=== PATIENT | male | born 1950 | race Caucasian/White ===

== ENCOUNTER 2017-01-02 11:41 | Inpatient (IN) | payer MEDICARE, MEDICAID ==
[~2017-01-02] VITALS: Ht 177.8 cm; Wt 64.9 kg
[2017-01-02 12:10] LABS: BASOPHILS # (AUTO) 0.1 /CMM (0.0-0.2); BASOPHILS % (AUTO) 0.5 % (0.0-2.0); DIFF TOTAL % 100 %; EOSINOPHILS # (AUTO) 0.4 /CMM (0.0-0.7); EOSINOPHILS % (AUTO) 3.5 % (0.0-6.0); HEMATOCRIT 34 % (39-51); HEMOGLOBIN 11.2 g/dL (13.5-17.5); LYMPHOCYTES # (AUTO) 1.9 /CMM (0.8-4.8); LYMPHOCYTES % (AUTO) 14.8 % (20.0-44.0); MEAN CORPUSCULAR HEMOGLOBIN 31 PG (26.0-33.0); MEAN CORPUSCULAR HGB CONC 33 g/dl (31.0-36.0); MEAN CORPUSCULAR VOLUME 93 fL (80-96); MONOCYTES # (AUTO) 1.1 /CMM (0.1-1.30); MONOCYTES % (AUTO) 8.9 % (2.0-12.0); NEUTROPHILS # (AUTO) 9.1 /CMM (1.8-8.9); NEUTROPHILS % (AUTO) 72.3 % (43.0-81.0); PLATELET COUNT (AUTO) 432 /CMM (150-450); RED BLOOD CELL COUNT(AUTO) 3.66 MIL/uL (4.5-6.0); WHITE BLOOD COUNT (AUTO) 12.6 K/uL (4.3-11.0)
[2017-01-02] MEDS ORDERED: CRAN425C GT (12:24)
[2017-01-02] MEDS ORDERED: ACET-868 GT (12:24)
[2017-01-02] MEDS ORDERED: ASPI81TA2 GT (12:24)
[2017-01-02] MEDS ORDERED: MULT9LIQ GT (12:24)
[2017-01-02] MEDS ORDERED: MAGN250T37 GT (12:24)
[2017-01-02] MEDS ORDERED: PANT40TA2 GT (12:24)
[2017-01-02] MEDS ORDERED: MINE3.5O EACHEYE (12:24)
[2017-01-02] MEDS ORDERED: AMIN30LI2 GT (12:24)
[2017-01-02] MEDS ORDERED: ZINC220T GT (12:24)
[2017-01-02] MEDS ORDERED: CLOP75TA2 GT (12:24)
[2017-01-02] MEDS ORDERED: DORZ10DR13 EACHEYE (12:24)
[2017-01-02] MEDS ORDERED: METF500T4 GT (12:24)
[2017-01-02] MEDS ORDERED: LEVE500T9 GT (12:24)
[2017-01-02] MEDS ORDERED: NUT.237L30 GT (12:24)
[2017-01-02] MEDS ORDERED: AMLO5TAB2 GT (12:24)
[2017-01-02] MEDS ORDERED: FERR220S2 GT (12:24)
[2017-01-02] MEDS ORDERED: MAGN400O6 GT (12:24)
[2017-01-02] MEDS ORDERED: CARV6.252 GT (12:24)
[2017-01-02] MEDS ORDERED: VALS80TA26 PO (12:24)
[2017-01-02] MEDS ORDERED: ASCO-340 GT (12:24)
[2017-01-02] MEDS ORDERED: POLY15DR57 EACHEYE (12:24)
[2017-01-02] MEDS ORDERED: CRAN3875 GT (12:24)
[2017-01-02] MEDS ORDERED: TAMS-12 GT (12:24)
[2017-01-02] MEDS ORDERED: BIMA2.5D5 EACHEYE (12:24)
[2017-01-02] MEDS ORDERED: SIMV10TA2 GT (12:24)
[2017-01-02] MEDS ORDERED: PHEN100O4 GT (12:24)
[2017-01-02] MEDS ORDERED: GABA-532 GT (12:24)
[2017-01-02 12:26] LABS: INR 0.93 (0.87-1.13); PROTHROMBIN TIME 9.8 SECS (9.5-12.7)
[2017-01-02 12:30] LABS: TROPONIN I 0.181 ng/mL (0.00-0.056)
[2017-01-02 12:40] LABS: ANION GAP 10 (5-14); CALCIUM, SERUM 9.8 mg/dL (8.5-10.1); CARBON DIOXIDE 30 mmol/L (21-32); CHLORIDE 97 mmol/L (98-107); CREATININE 0.6 mg/dL (0.6-1.3); GFR 134 mL/min (>60); GLUCOSE 277 mg/dL (74-106); POTASSIUM 4.8 mmol/L (3.5-5.1); SODIUM SERUM 132 mmol/L (136-145); UREA NITROGEN, BLOOD 26 mg/dL (7-18)
[2017-01-02 12:44] LABS: ALANINE AMINOTRANSFERASE 18 U/L (12-78); ALBUMIN 2.1 g/dL (3.4-5.0); ASPARTATE AMINOTRANSFERASE 15 U/L (15-37); BILIRUBIN,DIRECT 0.1 mg/dL (0.0-0.2); BILIRUBIN,TOTAL 0.2 mg/dL (0.2-1.0); INDIRECT BILIRUBIN 0.1 mg/dL (0.0-1.1); TOTAL PROTEIN, SERUM 7.2 g/dL (6.4-8.2)
[2017-01-02 12:47] LABS: LACTIC ACID 2.7 mmol/L (0.4-2.0)
[2017-01-02] MEDS ORDERED: IV NS 0.9% 2,000 ML ONE (12:53)
[2017-01-02] MEDS ORDERED: IV NS 0.9% 250 ML IV ONE (12:53)
[2017-01-02] MEDS ORDERED: IV SET PRIMARY PUMP SET 1 EA INFUS.SET MC ONE ×2 (12:53→16:44)
[2017-01-02] MEDS ORDERED: IV SET PRIMARY 1 EA INFUS.SET MC ONE (12:53)
[2017-01-02] MEDS ORDERED: IV NS 0.9% 1,000 ML BAG IV ONE (13:00)
[2017-01-02] MEDS ORDERED: VANCOMYCIN 1 GM in IV D5W 250 ML IV ONE (13:00)
[2017-01-02] MEDS ORDERED: PIPERACILLIN /TAZOBACTAM 3.375 G in IV D5W 50 ML IV ONE (13:00)
[2017-01-02] MEDS ORDERED: GENTAMICIN 80 MG in IV D5W 50 ML IV ONE (13:00)
[2017-01-02 13:06] LABS: *LACTIC ACID REFLEX FLAG YES
[2017-01-02] MEDS ORDERED: INSU100I4 SQ (13:58)
[2017-01-02 15:19] VITALS: BP 118/69
[2017-01-02] MEDS ORDERED: FEE PK DOSING 1 MIN EA MC ONE (15:55)
[2017-01-02 16:00] VITALS: BP 123/76
[2017-01-02] MEDS ORDERED: DEXTROSE 50%-WATER 50 ML DISP.SYRIN IV PRN (16:00)
[2017-01-02] MEDS ORDERED: ONDANSETRON HCL/PF 4 MG/2 ML VIAL IV PRN (16:00)
[2017-01-02] MEDS ORDERED: MAGNESIUM HYDROXIDE 30 ML UDC GT PRN (16:00)
[2017-01-02] MEDS ORDERED: ACETAMINOPHEN 650 MG/20.3 ML UDC GT PRN (16:30)
[2017-01-02] MEDS: VALSARTAN 80 MG TABLET PO SCH (16:33)
[2017-01-02] MEDS: FERROUS SULFATE UDC 300 MG/5 ML UDC GT SCH (16:33)
[2017-01-02] MEDS: CLOPIDOGREL BISULFATE 75 MG TABLET GT SCH (16:34)
[2017-01-02] MEDS: CARVEDILOL 6.25 MG TABLET GT SCH (16:34)
[2017-01-02] MEDS: AMLODIPINE BESYLATE 5 MG TABLET GT SCH (16:35)
[2017-01-02] MEDS: GABAPENTIN 100 MG CAPSULE GT SCH (16:35)
[2017-01-02] MEDS: METFORMIN 500 MG TABLET GT SCH (16:35)
[2017-01-02] MEDS: ASPIRIN 81 MG TAB.CHEW GT SCH (16:35)
[2017-01-02] MEDS: ENOXAPARIN SODIUM 40 MG/0.4 ML DISP.SYRIN SQ SCH (16:38)
[2017-01-02] MEDS: LANOLIN/MIN OIL/PETROLAT,WHT 3.5 GM TUBE EACHEYE SCH (17:16)
[2017-01-02] MEDS: POLYVINYL ALCOHOL 15 ML BOTTLE EACHEYE SCH ×2 (17:17→21:15)
[2017-01-02] MEDS ORDERED: SECONDARY IV SET 1 EA INFUS.SET MC ONE (17:18)
[2017-01-02] MEDS: TIMOLOL MAL/DORZOLAM HCL OPHTH 10 ML BOTTLE EACHEYE SCH (17:18)
[2017-01-02] MEDS: PHENYTOIN SUSP UDC 100 MG/4 ML UDC GT SCH (17:20)
[2017-01-02] MEDS: IV NS 0.9% 1,000 ML IV PRN (17:22)
[2017-01-02] MEDS: PIPERACILLIN /TAZOBACTAM 3.375 G in IV D5W 50 ML IV SCH (17:22)
[2017-01-02] MEDS: GLYTROL 1,000 ML BAG GT SCH (17:34)
[2017-01-02] MEDS: INSULIN REGULAR, HUMAN 100 UNIT/ML 3 ML VIAL SQ PRN (17:53)
[2017-01-02] MEDS: BLOOD SUGAR DIAGNOSTIC 1 EACH STRIP IN SCH (17:54)
[2017-01-02] MEDS: TAMSULOSIN 0.4 MG CAP.SR.24H GT SCH (21:15)
[2017-01-02] MEDS: LATANOPROST EYE DROP 0.005% 2.5 ML BOTTLE OP SCH (21:15)
[2017-01-02] MEDS: LEVETIRACETAM SOL (5 ML) 100 MG/ML UDC GT SCH (21:16)
[2017-01-02] MEDS: SIMVASTATIN 10 MG TABLET GT SCH (21:16)
[2017-01-02 22:38] VITALS: BP 147/79
[2017-01-03] MEDS: BLOOD SUGAR DIAGNOSTIC 1 EACH STRIP IN SCH ×4 (00:11→17:08)
[2017-01-03] MEDS: PIPERACILLIN /TAZOBACTAM 3.375 G in IV D5W 50 ML IV SCH ×4 (00:11→18:27)
[2017-01-03] MEDS: INSULIN REGULAR, HUMAN 100 UNIT/ML 3 ML VIAL SQ PRN ×4 (00:12→17:15)
[2017-01-03] MEDS ORDERED: SECONDARY IV SET 1 EA INFUS.SET MC ONE ×2 (01:53→16:01)
[2017-01-03] MEDS: VANCOMYCIN 1 GM in IV D5W 250 ML IV SCH ×2 (01:55→12:55)
[2017-01-03 04:00] VITALS: BP_SYST 121; BP_SYST 147; BP_DIAS 75; BP_DIAS 79
[2017-01-03 06:46] LABS: BASOPHILS % (AUTO) 0.4 % (0.0-2.0); DIFF TOTAL % 100 %; EOSINOPHILS # (AUTO) 0.4 /CMM (0.0-0.7); EOSINOPHILS % (AUTO) 4.1 % (0.0-6.0); HEMATOCRIT 29 % (39-51); HEMOGLOBIN 9.3 g/dL (13.5-17.5); LYMPHOCYTES # (AUTO) 1.2 /CMM (0.8-4.8); LYMPHOCYTES % (AUTO) 10.7 % (20.0-44.0); MEAN CORPUSCULAR HEMOGLOBIN 31 PG (26.0-33.0); MEAN CORPUSCULAR HGB CONC 33 g/dl (31.0-36.0); MEAN CORPUSCULAR VOLUME 93 fL (80-96); MONOCYTES % (AUTO) 9.4 % (2.0-12.0); NEUTROPHILS # (AUTO) 8.4 /CMM (1.8-8.9); NEUTROPHILS % (AUTO) 75.4 % (43.0-81.0); PLATELET COUNT (AUTO) 376 /CMM (150-450); RED BLOOD CELL COUNT(AUTO) 3.06 MIL/uL (4.5-6.0); WHITE BLOOD COUNT (AUTO) 11.1 K/uL (4.3-11.0)
[2017-01-03 06:57] LABS: CALCIUM, SERUM 8.6 mg/dL (8.5-10.1); CREATININE 0.6 mg/dL (0.6-1.3); PHOSPHORUS 2.4 mg/dL (2.5-4.9); POTASSIUM 4.5 mmol/L (3.5-5.1)
[2017-01-03 08:00] VITALS: BP 133/76
[2017-01-03] MEDS: MULTIVIT, IRON, MIN NO. 8, FA 1 TAB TABLET GT SCH (09:08)
[2017-01-03] MEDS: METFORMIN 500 MG TABLET GT SCH ×2 (09:10→16:25)
[2017-01-03] MEDS: GABAPENTIN 100 MG CAPSULE GT SCH ×2 (09:11→16:26)
[2017-01-03] MEDS: AMLODIPINE BESYLATE 5 MG TABLET GT SCH (09:11)
[2017-01-03] MEDS: ASPIRIN 81 MG TAB.CHEW GT SCH (09:12)
[2017-01-03] MEDS: CARVEDILOL 6.25 MG TABLET GT SCH ×2 (09:12→16:25)
[2017-01-03] MEDS: VALSARTAN 80 MG TABLET PO SCH (09:12)
[2017-01-03] MEDS: FERROUS SULFATE UDC 300 MG/5 ML UDC GT SCH (09:13)
[2017-01-03] MEDS: MAGNESIUM OXIDE 400 MG TABLET GT SCH (09:13)
[2017-01-03] MEDS: ZINC SULFATE 220 MG CAPSULE GT SCH (09:13)
[2017-01-03] MEDS: ASCORBIC ACID 500 MG TABLET GT SCH (09:13)
[2017-01-03] MEDS: PHENYTOIN SUSP UDC 100 MG/4 ML UDC GT SCH ×2 (09:14→16:25)
[2017-01-03] MEDS: LEVETIRACETAM SOL (5 ML) 100 MG/ML UDC GT SCH ×2 (09:14→21:33)
[2017-01-03] MEDS: PANTOPRAZOLE 40 MG TABLET.DR PO SCH (09:14)
[2017-01-03] MEDS: TIMOLOL MAL/DORZOLAM HCL OPHTH 10 ML BOTTLE EACHEYE SCH ×2 (09:15→16:27)
[2017-01-03] MEDS: POLYVINYL ALCOHOL 15 ML BOTTLE EACHEYE SCH ×4 (09:16→21:33)
[2017-01-03] MEDS: LANOLIN/MIN OIL/PETROLAT,WHT 3.5 GM TUBE EACHEYE SCH ×2 (09:16→16:28)
[2017-01-03] MEDS: CLOPIDOGREL BISULFATE 75 MG TABLET GT SCH (09:17)
[2017-01-03 09:40] VITALS: BP 147/81
[2017-01-03] MEDS: IV NS 0.9% 1,000 ML IV PRN (11:26)
[2017-01-03] MEDS ORDERED: NEUTRA PHOS 1 POWD.PACKET GT ONE (13:30)
[2017-01-03 16:00] VITALS: BP 124/73
[2017-01-03] MEDS: Magnesium 1GM/D5W 100ML PREMIX 1 G in PREMIX 1 EA IV SCH ×4 (16:21→21:33)
[2017-01-03 18:00] VITALS: BP 124/73
[2017-01-03 20:00] VITALS: BP 134/72
[2017-01-03] MEDS: TAMSULOSIN 0.4 MG CAP.SR.24H GT SCH (21:33)
[2017-01-03] MEDS: SIMVASTATIN 10 MG TABLET GT SCH (21:33)
[2017-01-04] MEDS: LATANOPROST EYE DROP 0.005% 2.5 ML BOTTLE OP SCH ×2 (00:07→23:49)
[2017-01-04] MEDS: ENOXAPARIN SODIUM 40 MG/0.4 ML DISP.SYRIN SQ SCH ×2 (00:07→21:00)
[2017-01-04] MEDS: PIPERACILLIN /TAZOBACTAM 3.375 G in IV D5W 50 ML IV SCH ×4 (00:08→17:51)
[2017-01-04] MEDS: INSULIN REGULAR, HUMAN 100 UNIT/ML 3 ML VIAL SQ PRN ×4 (00:21→18:02)
[2017-01-04] MEDS: BLOOD SUGAR DIAGNOSTIC 1 EACH STRIP IN SCH ×4 (00:24→17:50)
[2017-01-04] MEDS: VANCOMYCIN 1 GM in IV D5W 250 ML IV SCH ×2 (01:30→12:53)
[2017-01-04] MEDS: GLYTROL 1,000 ML BAG GT SCH (03:31)
[2017-01-04 06:37] LABS: CALCIUM, SERUM 8.8 mg/dL (8.5-10.1); CREATININE 0.6 mg/dL (0.6-1.3); PHOSPHORUS 2.7 mg/dL (2.5-4.9); POTASSIUM 4.3 mmol/L (3.5-5.1)
[2017-01-04 08:00] VITALS: BP 132/80
[2017-01-04] MEDS: PANTOPRAZOLE 40 MG TABLET.DR PO SCH (08:36)
[2017-01-04] MEDS: PHENYTOIN SUSP UDC 100 MG/4 ML UDC GT SCH ×2 (08:36→17:49)
[2017-01-04] MEDS: LEVETIRACETAM SOL (5 ML) 100 MG/ML UDC GT SCH ×2 (08:36→23:31)
[2017-01-04] MEDS: GABAPENTIN 100 MG CAPSULE GT SCH ×2 (08:37→17:50)
[2017-01-04] MEDS: FERROUS SULFATE UDC 300 MG/5 ML UDC GT SCH (08:37)
[2017-01-04] MEDS: ZINC SULFATE 220 MG CAPSULE GT SCH (08:37)
[2017-01-04] MEDS: ASPIRIN 81 MG TAB.CHEW GT SCH (08:37)
[2017-01-04] MEDS: CLOPIDOGREL BISULFATE 75 MG TABLET GT SCH (08:37)
[2017-01-04] MEDS: MULTIVIT, IRON, MIN NO. 8, FA 1 TAB TABLET GT SCH (08:38)
[2017-01-04] MEDS: AMLODIPINE BESYLATE 5 MG TABLET GT SCH (08:38)
[2017-01-04] MEDS: ASCORBIC ACID 500 MG TABLET GT SCH (08:38)
[2017-01-04] MEDS: VALSARTAN 80 MG TABLET PO SCH (08:38)
[2017-01-04] MEDS: MAGNESIUM OXIDE 400 MG TABLET GT SCH (08:39)
[2017-01-04] MEDS: METFORMIN 500 MG TABLET GT SCH ×2 (08:39→17:50)
[2017-01-04] MEDS: CARVEDILOL 6.25 MG TABLET GT SCH ×2 (08:39→17:50)
[2017-01-04] MEDS: TIMOLOL MAL/DORZOLAM HCL OPHTH 10 ML BOTTLE EACHEYE SCH ×2 (08:43→17:49)
[2017-01-04] MEDS: POLYVINYL ALCOHOL 15 ML BOTTLE EACHEYE SCH ×4 (08:43→23:49)
[2017-01-04] MEDS: LANOLIN/MIN OIL/PETROLAT,WHT 3.5 GM TUBE EACHEYE SCH ×2 (08:44→18:03)
[2017-01-04 16:00] VITALS: BP 121/69
[2017-01-04] MEDS: DAKINS QUARTER STRENGTH (0.125%) 480 ML BOTTLE TOP SCH (18:00)
[2017-01-04 20:00] VITALS: BP 120/68
[2017-01-04] MEDS: GLYTROL 1,000 ML BAG GT PRN (20:12)
[2017-01-04] MEDS: TAMSULOSIN 0.4 MG CAP.SR.24H GT SCH (23:31)
[2017-01-04] MEDS: SIMVASTATIN 10 MG TABLET GT SCH (23:31)
[2017-01-05] MEDS: BLOOD SUGAR DIAGNOSTIC 1 EACH STRIP IN SCH ×5 (00:02→21:54)
[2017-01-05] MEDS: INSULIN REGULAR, HUMAN 100 UNIT/ML 3 ML VIAL SQ PRN ×5 (00:04→21:58)
[2017-01-05] MEDS: PIPERACILLIN /TAZOBACTAM 3.375 G in IV D5W 50 ML IV SCH ×4 (00:05→17:09)
[2017-01-05 00:08] LABS: BASOPHILS # (AUTO) 0.1 /CMM (0.0-0.2); BASOPHILS % (AUTO) 0.4 % (0.0-2.0); DIFF TOTAL % 100 %; EOSINOPHILS # (AUTO) 0.4 /CMM (0.0-0.7); EOSINOPHILS % (AUTO) 3.1 % (0.0-6.0); HEMATOCRIT 29 % (39-51); HEMOGLOBIN 9.6 g/dL (13.5-17.5); LYMPHOCYTES # (AUTO) 1.5 /CMM (0.8-4.8); LYMPHOCYTES % (AUTO) 11.6 % (20.0-44.0); MEAN CORPUSCULAR HEMOGLOBIN 30 PG (26.0-33.0); MEAN CORPUSCULAR HGB CONC 33 g/dl (31.0-36.0); MEAN CORPUSCULAR VOLUME 93 fL (80-96); NEUTROPHILS # (AUTO) 10.1 /CMM (1.8-8.9); NEUTROPHILS % (AUTO) 76.9 % (43.0-81.0); PLATELET COUNT (AUTO) 435 /CMM (150-450); RED BLOOD CELL COUNT(AUTO) 3.16 MIL/uL (4.5-6.0); WHITE BLOOD COUNT (AUTO) 13.1 K/uL (4.3-11.0)
[2017-01-05] MEDS: VANCOMYCIN 1 GM in IV D5W 250 ML IV SCH ×2 (01:13→12:06)
[2017-01-05 06:24] LABS: BASOPHILS % (AUTO) 0.2 % (0.0-2.0); DIFF TOTAL % 100 %; EOSINOPHILS # (AUTO) 0.3 /CMM (0.0-0.7); EOSINOPHILS % (AUTO) 2.4 % (0.0-6.0); HEMATOCRIT 25 % (39-51); HEMOGLOBIN 8.3 g/dL (13.5-17.5); LYMPHOCYTES # (AUTO) 1.8 /CMM (0.8-4.8); LYMPHOCYTES % (AUTO) 12.9 % (20.0-44.0); MEAN CORPUSCULAR HEMOGLOBIN 31 PG (26.0-33.0); MEAN CORPUSCULAR HGB CONC 33 g/dl (31.0-36.0); MEAN CORPUSCULAR VOLUME 92 fL (80-96); MONOCYTES # (AUTO) 1.2 /CMM (0.1-1.30); MONOCYTES % (AUTO) 8.3 % (2.0-12.0); NEUTROPHILS # (AUTO) 10.8 /CMM (1.8-8.9); NEUTROPHILS % (AUTO) 76.2 % (43.0-81.0); PLATELET COUNT (AUTO) 455 /CMM (150-450); RED BLOOD CELL COUNT(AUTO) 2.71 MIL/uL (4.5-6.0); WHITE BLOOD COUNT (AUTO) 14.2 K/uL (4.3-11.0)
[2017-01-05 06:47] LABS: CALCIUM, SERUM 8.9 mg/dL (8.5-10.1); CREATININE 0.6 mg/dL (0.6-1.3); POTASSIUM 4.7 mmol/L (3.5-5.1)
[2017-01-05 06:48] LABS: PHOSPHORUS 2.5 mg/dL (2.5-4.9)
[2017-01-05 08:00] VITALS: BP 110/75
[2017-01-05] MEDS ORDERED: Z GUARD REMEDY 2 OZ OINT TP PRN (08:30)
[2017-01-05] MEDS: TIMOLOL MAL/DORZOLAM HCL OPHTH 10 ML BOTTLE EACHEYE SCH ×2 (08:49→16:52)
[2017-01-05] MEDS: POLYVINYL ALCOHOL 15 ML BOTTLE EACHEYE SCH ×4 (08:50→21:49)
[2017-01-05] MEDS: MAGNESIUM OXIDE 400 MG TABLET GT SCH (08:51)
[2017-01-05] MEDS: FERROUS SULFATE UDC 300 MG/5 ML UDC GT SCH (08:51)
[2017-01-05] MEDS: LEVETIRACETAM SOL (5 ML) 100 MG/ML UDC GT SCH ×2 (08:51→21:49)
[2017-01-05] MEDS: ZINC SULFATE 220 MG CAPSULE GT SCH (08:51)
[2017-01-05] MEDS: PHENYTOIN SUSP UDC 100 MG/4 ML UDC GT SCH ×2 (08:51→16:50)
[2017-01-05] MEDS: CARVEDILOL 6.25 MG TABLET GT SCH ×2 (08:51→16:51)
[2017-01-05] MEDS: PANTOPRAZOLE 40 MG TABLET.DR PO SCH (08:51)
[2017-01-05] MEDS: GABAPENTIN 100 MG CAPSULE GT SCH ×2 (08:51→16:50)
[2017-01-05] MEDS: ASPIRIN 81 MG TAB.CHEW GT SCH (08:52)
[2017-01-05] MEDS: CLOPIDOGREL BISULFATE 75 MG TABLET GT SCH (08:52)
[2017-01-05] MEDS: AMLODIPINE BESYLATE 5 MG TABLET GT SCH (08:52)
[2017-01-05] MEDS: ASCORBIC ACID 500 MG TABLET GT SCH (08:52)
[2017-01-05] MEDS: MULTIVIT, IRON, MIN NO. 8, FA 1 TAB TABLET GT SCH (08:52)
[2017-01-05] MEDS: METFORMIN 500 MG TABLET GT SCH ×2 (08:52→16:51)
[2017-01-05] MEDS: LANOLIN/MIN OIL/PETROLAT,WHT 3.5 GM TUBE EACHEYE SCH ×2 (08:53→16:50)
[2017-01-05] MEDS: VALSARTAN 80 MG TABLET PO SCH (08:55)
[2017-01-05] MEDS: DAKINS QUARTER STRENGTH (0.125%) 480 ML BOTTLE TOP SCH (08:56)
[2017-01-05] MEDS: Z GUARD REMEDY 2 OZ OINT TP SCH (08:56)
[2017-01-05] MEDS ORDERED: SECONDARY IV SET 1 EA INFUS.SET MC ONE (11:51)
[2017-01-05] MEDS: Magnesium 1GM/D5W 100ML PREMIX 100 ML IV SCH ×4 (12:05→15:13)
[2017-01-05] MEDS: GLYTROL 1,000 ML BAG GT PRN (12:05)
[2017-01-05 16:00] VITALS: BP 132/65
[2017-01-05 20:00] VITALS: BP 119/66
[2017-01-05 20:31] VITALS: BP 119/66
[2017-01-05 21:08] LABS: KETONES,URINE NEGATIVE (NEGATIVE); LEUKOCYTE ESTERASE ,URINE 3+ (NEGATIVE)
[2017-01-05 21:09] LABS: ADD UA MICROSCOPIC YES
[2017-01-05 21:37] LABS: ADD URINE CULTURE YES; WBC,URINE 21-50 /HPF (0-3)
[2017-01-05] MEDS: LATANOPROST EYE DROP 0.005% 2.5 ML BOTTLE OP SCH (21:48)
[2017-01-05] MEDS: SIMVASTATIN 10 MG TABLET GT SCH (21:49)
[2017-01-05] MEDS: TAMSULOSIN 0.4 MG CAP.SR.24H GT SCH (21:49)
[2017-01-05] MEDS: ENOXAPARIN SODIUM 40 MG/0.4 ML DISP.SYRIN SQ SCH (22:00)
[2017-01-06] VITALS (8 sets, daily range): BP systolic 100–129; BP diastolic 54–70
[2017-01-06] MEDS: PIPERACILLIN /TAZOBACTAM 3.375 G in IV D5W 50 ML IV SCH ×5 (00:15→19:52)
[2017-01-06] MEDS: GLYTROL 1,000 ML BAG GT PRN ×3 (00:16→22:10)
[2017-01-06] MEDS: VANCOMYCIN 1 GM in IV D5W 250 ML IV SCH ×3 (01:11→13:16)
[2017-01-06] MEDS: BLOOD SUGAR DIAGNOSTIC 1 EACH STRIP IN SCH ×3 (05:17→17:39)
[2017-01-06] MEDS: INSULIN REGULAR, HUMAN 100 UNIT/ML 3 ML VIAL SQ PRN ×3 (05:23→17:46)
[2017-01-06 06:44] LABS: BASOPHILS % (AUTO) 0.3 % (0.0-2.0); DIFF TOTAL % 100 %; EOSINOPHILS # (AUTO) 0.4 /CMM (0.0-0.7); EOSINOPHILS % (AUTO) 2.6 % (0.0-6.0); HEMATOCRIT 21 % (39-51); HEMOGLOBIN 7.1 g/dL (13.5-17.5); LYMPHOCYTES # (AUTO) 1.8 /CMM (0.8-4.8); LYMPHOCYTES % (AUTO) 13.1 % (20.0-44.0); MEAN CORPUSCULAR HEMOGLOBIN 31 PG (26.0-33.0); MEAN CORPUSCULAR HGB CONC 33 g/dl (31.0-36.0); MEAN CORPUSCULAR VOLUME 94 fL (80-96); MONOCYTES # (AUTO) 1.4 /CMM (0.1-1.30); MONOCYTES % (AUTO) 9.8 % (2.0-12.0); NEUTROPHILS # (AUTO) 10.3 /CMM (1.8-8.9); NEUTROPHILS % (AUTO) 74.2 % (43.0-81.0); PLATELET COUNT (AUTO) 364 /CMM (150-450); RED BLOOD CELL COUNT(AUTO) 2.29 MIL/uL (4.5-6.0); WHITE BLOOD COUNT (AUTO) 13.9 K/uL (4.3-11.0)
[2017-01-06 06:52] LABS: CALCIUM, SERUM 8.6 mg/dL (8.5-10.1); CREATININE 0.7 mg/dL (0.6-1.3); PHOSPHORUS 2.6 mg/dL (2.5-4.9)
[2017-01-06] MEDS: ZINC SULFATE 220 MG CAPSULE GT SCH (08:57)
[2017-01-06] MEDS: MAGNESIUM OXIDE 400 MG TABLET GT SCH (08:57)
[2017-01-06] MEDS: CLOPIDOGREL BISULFATE 75 MG TABLET GT SCH (08:57)
[2017-01-06] MEDS: AMLODIPINE BESYLATE 5 MG TABLET GT SCH (08:57)
[2017-01-06] MEDS: MULTIVIT, IRON, MIN NO. 8, FA 1 TAB TABLET GT SCH (08:57)
[2017-01-06] MEDS: ASPIRIN 81 MG TAB.CHEW GT SCH (08:57)
[2017-01-06] MEDS: LEVETIRACETAM SOL (5 ML) 100 MG/ML UDC GT SCH ×2 (08:57→21:35)
[2017-01-06] MEDS: ASCORBIC ACID 500 MG TABLET GT SCH (08:57)
[2017-01-06] MEDS: FERROUS SULFATE UDC 300 MG/5 ML UDC GT SCH (08:57)
[2017-01-06] MEDS: PHENYTOIN SUSP UDC 100 MG/4 ML UDC GT SCH ×2 (08:57→16:54)
[2017-01-06] MEDS: GABAPENTIN 100 MG CAPSULE GT SCH ×2 (08:57→16:54)
[2017-01-06] MEDS: METFORMIN 500 MG TABLET GT SCH ×2 (08:58→16:55)
[2017-01-06] MEDS: PANTOPRAZOLE 40 MG TABLET.DR PO SCH (08:58)
[2017-01-06] MEDS: CARVEDILOL 6.25 MG TABLET GT SCH ×2 (08:58→16:56)
[2017-01-06] MEDS: VALSARTAN 80 MG TABLET PO SCH (08:58)
[2017-01-06] MEDS: DAKINS QUARTER STRENGTH (0.125%) 480 ML BOTTLE TOP SCH (08:59)
[2017-01-06] MEDS: Z GUARD REMEDY 2 OZ OINT TP SCH (08:59)
[2017-01-06] MEDS: POLYVINYL ALCOHOL 15 ML BOTTLE EACHEYE SCH ×4 (09:01→21:38)
[2017-01-06] MEDS: LANOLIN/MIN OIL/PETROLAT,WHT 3.5 GM TUBE EACHEYE SCH ×2 (09:01→16:57)
[2017-01-06] MEDS: TIMOLOL MAL/DORZOLAM HCL OPHTH 10 ML BOTTLE EACHEYE SCH ×2 (09:01→16:57)
[2017-01-06] MEDS ORDERED: DEXTROSE 50%-WATER 50 ML DISP.SYRIN IV PRN (11:30)
[2017-01-06] MEDS ORDERED: IV NS 0.9% 250 ML IV ONE ×3 (11:40→17:43)
[2017-01-06] MEDS: glipiZIDE 10 MG TABLET GT SCH ×2 (11:54→16:54)
[2017-01-06] MEDS: INSULIN DETEMIR 100 UNIT/ML CARTRIDGE SQ SCH (12:23)
[2017-01-06] MEDS ORDERED: BLOOD IV SET 1 EA INFUS.SET MC ONE (15:05)
[2017-01-06] MEDS: TAMSULOSIN 0.4 MG CAP.SR.24H GT SCH (21:35)
[2017-01-06] MEDS: SIMVASTATIN 10 MG TABLET GT SCH (21:35)
[2017-01-06] MEDS: VANCOMYCIN 0.75 GM in IV D5W 250 ML IV SCH (21:36)
[2017-01-06] MEDS: LATANOPROST EYE DROP 0.005% 2.5 ML BOTTLE OP SCH (21:37)
[2017-01-06] MEDS: ENOXAPARIN SODIUM 40 MG/0.4 ML DISP.SYRIN SQ SCH (22:10)
[2017-01-07] MEDS: BLOOD SUGAR DIAGNOSTIC 1 EACH STRIP IN SCH ×5 (00:37→23:27)
[2017-01-07] MEDS: PIPERACILLIN /TAZOBACTAM 3.375 G in IV D5W 50 ML IV SCH ×5 (00:38→23:27)
[2017-01-07] MEDS: INSULIN REGULAR, HUMAN 100 UNIT/ML 3 ML VIAL SQ PRN ×5 (00:43→23:30)
[2017-01-07 05:25] LABS: BASOPHILS # (AUTO) 0.1 /CMM (0.0-0.2); BASOPHILS % (AUTO) 0.4 % (0.0-2.0); DIFF TOTAL % 100 %; EOSINOPHILS # (AUTO) 0.6 /CMM (0.0-0.7); EOSINOPHILS % (AUTO) 3.4 % (0.0-6.0); HEMATOCRIT 26 % (39-51); HEMOGLOBIN 8.7 g/dL (13.5-17.5); LYMPHOCYTES # (AUTO) 2.2 /CMM (0.8-4.8); LYMPHOCYTES % (AUTO) 12.1 % (20.0-44.0); MEAN CORPUSCULAR HEMOGLOBIN 30 PG (26.0-33.0); MEAN CORPUSCULAR HGB CONC 33 g/dl (31.0-36.0); MEAN CORPUSCULAR VOLUME 90 fL (80-96); MONOCYTES # (AUTO) 1.5 /CMM (0.1-1.30); MONOCYTES % (AUTO) 8.3 % (2.0-12.0); NEUTROPHILS # (AUTO) 13.8 /CMM (1.8-8.9); NEUTROPHILS % (AUTO) 75.8 % (43.0-81.0); PLATELET COUNT (AUTO) 462 /CMM (150-450); RED BLOOD CELL COUNT(AUTO) 2.91 MIL/uL (4.5-6.0); WHITE BLOOD COUNT (AUTO) 18.2 K/uL (4.3-11.0)
[2017-01-07 05:46] LABS: CREATININE 0.6 mg/dL (0.6-1.3); PHOSPHORUS 2.3 mg/dL (2.5-4.9); POTASSIUM 4.8 mmol/L (3.5-5.1)
[2017-01-07] MEDS: GLYTROL 1,000 ML BAG GT PRN ×2 (06:08→20:32)
[2017-01-07 08:00] VITALS: BP 131/79
[2017-01-07] MEDS: PHENYTOIN SUSP UDC 100 MG/4 ML UDC GT SCH ×2 (08:37→17:00)
[2017-01-07] MEDS: LEVETIRACETAM SOL (5 ML) 100 MG/ML UDC GT SCH ×2 (08:37→21:06)
[2017-01-07] MEDS: FERROUS SULFATE UDC 300 MG/5 ML UDC GT SCH (08:37)
[2017-01-07] MEDS: ZINC SULFATE 220 MG CAPSULE GT SCH (08:38)
[2017-01-07] MEDS: METFORMIN 500 MG TABLET GT SCH ×2 (08:38→17:00)
[2017-01-07] MEDS: MULTIVIT, IRON, MIN NO. 8, FA 1 TAB TABLET GT SCH (08:38)
[2017-01-07] MEDS: MAGNESIUM OXIDE 400 MG TABLET GT SCH (08:38)
[2017-01-07] MEDS: CLOPIDOGREL BISULFATE 75 MG TABLET GT SCH (08:38)
[2017-01-07] MEDS: ASPIRIN 81 MG TAB.CHEW GT SCH (08:38)
[2017-01-07] MEDS: PANTOPRAZOLE 40 MG TABLET.DR PO SCH (08:38)
[2017-01-07] MEDS: GABAPENTIN 100 MG CAPSULE GT SCH ×2 (08:38→17:00)
[2017-01-07] MEDS: ASCORBIC ACID 500 MG TABLET GT SCH (08:38)
[2017-01-07] MEDS: glipiZIDE 10 MG TABLET GT SCH ×2 (08:38→16:33)
[2017-01-07] MEDS: TIMOLOL MAL/DORZOLAM HCL OPHTH 10 ML BOTTLE EACHEYE SCH ×2 (08:39→17:02)
[2017-01-07] MEDS: DAKINS QUARTER STRENGTH (0.125%) 480 ML BOTTLE TOP SCH (08:40)
[2017-01-07] MEDS: POLYVINYL ALCOHOL 15 ML BOTTLE EACHEYE SCH ×4 (08:40→21:07)
[2017-01-07] MEDS: LANOLIN/MIN OIL/PETROLAT,WHT 3.5 GM TUBE EACHEYE SCH ×2 (08:40→17:02)
[2017-01-07] MEDS: Z GUARD REMEDY 2 OZ OINT TP SCH (08:41)
[2017-01-07] MEDS: VALSARTAN 80 MG TABLET PO SCH (08:41)
[2017-01-07] MEDS: CARVEDILOL 6.25 MG TABLET GT SCH ×2 (08:41→17:01)
[2017-01-07] MEDS: AMLODIPINE BESYLATE 5 MG TABLET GT SCH (08:41)
[2017-01-07] MEDS: INSULIN DETEMIR 100 UNIT/ML CARTRIDGE SQ SCH (09:32)
[2017-01-07] MEDS: VANCOMYCIN 0.75 GM in IV D5W 250 ML IV SCH ×2 (09:34→21:07)
[2017-01-07] MEDS ORDERED: Sodium Phosphate 7.5 MMOL in IV D5W 100 ML IV ONE (11:00)
[2017-01-07] MEDS ORDERED: SECONDARY IV SET 1 EA INFUS.SET MC ONE (11:41)
[2017-01-07] MEDS: Magnesium 1GM/D5W 100ML PREMIX 100 ML IV SCH ×2 (11:46→12:36)
[2017-01-07 16:00] VITALS: BP 132/73
[2017-01-07 16:07] VITALS: BP 132/73
[2017-01-07 20:00] VITALS: BP 114/71
[2017-01-07] MEDS: SIMVASTATIN 10 MG TABLET GT SCH (21:06)
[2017-01-07] MEDS: TAMSULOSIN 0.4 MG CAP.SR.24H GT SCH (21:06)
[2017-01-07] MEDS: LATANOPROST EYE DROP 0.005% 2.5 ML BOTTLE OP SCH (21:08)
[2017-01-07] MEDS: ENOXAPARIN SODIUM 40 MG/0.4 ML DISP.SYRIN SQ SCH (21:09)
[2017-01-08] MEDS: GLYTROL 1,000 ML BAG GT PRN ×2 (05:50→16:40)
[2017-01-08] MEDS: BLOOD SUGAR DIAGNOSTIC 1 EACH STRIP IN SCH ×4 (05:51→23:48)
[2017-01-08] MEDS: PIPERACILLIN /TAZOBACTAM 3.375 G in IV D5W 50 ML IV SCH ×4 (05:51→23:48)
[2017-01-08] MEDS: INSULIN REGULAR, HUMAN 100 UNIT/ML 3 ML VIAL SQ PRN ×3 (05:56→18:08)
[2017-01-08 06:45] LABS: BASOPHILS % (AUTO) 0.4 % (0.0-2.0); DIFF TOTAL % 100 %; EOSINOPHILS # (AUTO) 0.7 /CMM (0.0-0.7); EOSINOPHILS % (AUTO) 5.5 % (0.0-6.0); HEMATOCRIT 25 % (39-51); HEMOGLOBIN 8.3 g/dL (13.5-17.5); LYMPHOCYTES # (AUTO) 1.8 /CMM (0.8-4.8); LYMPHOCYTES % (AUTO) 13.4 % (20.0-44.0); MEAN CORPUSCULAR HEMOGLOBIN 30 PG (26.0-33.0); MEAN CORPUSCULAR HGB CONC 33 g/dl (31.0-36.0); MEAN CORPUSCULAR VOLUME 91 fL (80-96); MONOCYTES # (AUTO) 1.2 /CMM (0.1-1.30); NEUTROPHILS # (AUTO) 9.7 /CMM (1.8-8.9); NEUTROPHILS % (AUTO) 71.7 % (43.0-81.0); PLATELET COUNT (AUTO) 453 /CMM (150-450); RED BLOOD CELL COUNT(AUTO) 2.77 MIL/uL (4.5-6.0); WHITE BLOOD COUNT (AUTO) 13.5 K/uL (4.3-11.0)
[2017-01-08 07:06] LABS: CALCIUM, SERUM 9.1 mg/dL (8.5-10.1); CREATININE 0.6 mg/dL (0.6-1.3); POTASSIUM 4.7 mmol/L (3.5-5.1)
[2017-01-08 08:00] VITALS: BP 117/78
[2017-01-08] MEDS: glipiZIDE 10 MG TABLET GT SCH ×2 (08:38→16:41)
[2017-01-08] MEDS: PHENYTOIN SUSP UDC 100 MG/4 ML UDC GT SCH ×2 (08:38→16:41)
[2017-01-08] MEDS: ASCORBIC ACID 500 MG TABLET GT SCH (08:39)
[2017-01-08] MEDS: CLOPIDOGREL BISULFATE 75 MG TABLET GT SCH (08:39)
[2017-01-08] MEDS: VALSARTAN 80 MG TABLET PO SCH (08:40)
[2017-01-08] MEDS: MAGNESIUM OXIDE 400 MG TABLET GT SCH (08:40)
[2017-01-08] MEDS: CARVEDILOL 6.25 MG TABLET GT SCH ×2 (08:40→16:42)
[2017-01-08] MEDS: MULTIVIT, IRON, MIN NO. 8, FA 1 TAB TABLET GT SCH (08:41)
[2017-01-08] MEDS: PANTOPRAZOLE 40 MG TABLET.DR PO SCH (08:41)
[2017-01-08] MEDS: AMLODIPINE BESYLATE 5 MG TABLET GT SCH (08:41)
[2017-01-08] MEDS: FERROUS SULFATE UDC 300 MG/5 ML UDC GT SCH (08:41)
[2017-01-08] MEDS: GABAPENTIN 100 MG CAPSULE GT SCH ×2 (08:41→16:41)
[2017-01-08] MEDS: ZINC SULFATE 220 MG CAPSULE GT SCH (08:41)
[2017-01-08] MEDS: METFORMIN 500 MG TABLET GT SCH ×2 (08:41→16:41)
[2017-01-08] MEDS: LEVETIRACETAM SOL (5 ML) 100 MG/ML UDC GT SCH ×2 (08:41→21:38)
[2017-01-08] MEDS: ASPIRIN 81 MG TAB.CHEW GT SCH (08:41)
[2017-01-08] MEDS: VANCOMYCIN 0.75 GM in IV D5W 250 ML IV SCH ×2 (08:41→21:38)
[2017-01-08] MEDS: INSULIN DETEMIR 100 UNIT/ML CARTRIDGE SQ SCH (08:53)
[2017-01-08] MEDS: DAKINS QUARTER STRENGTH (0.125%) 480 ML BOTTLE TOP SCH (08:53)
[2017-01-08] MEDS: POLYVINYL ALCOHOL 15 ML BOTTLE EACHEYE SCH ×4 (08:54→21:39)
[2017-01-08] MEDS: TIMOLOL MAL/DORZOLAM HCL OPHTH 10 ML BOTTLE EACHEYE SCH ×2 (08:54→16:43)
[2017-01-08] MEDS: LANOLIN/MIN OIL/PETROLAT,WHT 3.5 GM TUBE EACHEYE SCH ×2 (08:55→16:43)
[2017-01-08] MEDS: Z GUARD REMEDY 2 OZ OINT TP SCH (08:59)
[2017-01-08 09:18] LABS: EOSINOPHILS % (MANUAL) 1 % (0-4); LYMPHOCYTES % (MANUAL) 11 % (16-48); PLATELET ESTIMATE INCREASED; RBC MORPHOLOGY COMMENT NORMAL RBC MORPH
[2017-01-08 16:00] VITALS: BP 99/58
[2017-01-08] MEDS ORDERED: SECONDARY IV SET 1 EA INFUS.SET MC ONE (18:03)
[2017-01-08 20:05] VITALS: BP 101/59
[2017-01-08] MEDS: ENOXAPARIN SODIUM 40 MG/0.4 ML DISP.SYRIN SQ SCH (21:00)
[2017-01-08] MEDS: TAMSULOSIN 0.4 MG CAP.SR.24H GT SCH (21:38)
[2017-01-08] MEDS: LATANOPROST EYE DROP 0.005% 2.5 ML BOTTLE OP SCH (21:38)
[2017-01-08] MEDS: SIMVASTATIN 10 MG TABLET GT SCH (21:38)
[2017-01-09] MEDS: PIPERACILLIN /TAZOBACTAM 3.375 G in IV D5W 50 ML IV SCH ×3 (06:19→17:03)
[2017-01-09] MEDS: BLOOD SUGAR DIAGNOSTIC 1 EACH STRIP IN SCH ×3 (06:22→16:52)
[2017-01-09 06:35] LABS: BASOPHILS % (AUTO) 0.3 % (0.0-2.0); DIFF TOTAL % 100 %; EOSINOPHILS # (AUTO) 0.6 /CMM (0.0-0.7); EOSINOPHILS % (AUTO) 5.1 % (0.0-6.0); HEMATOCRIT 26 % (39-51); HEMOGLOBIN 8.6 g/dL (13.5-17.5); LYMPHOCYTES % (AUTO) 16.1 % (20.0-44.0); MEAN CORPUSCULAR HEMOGLOBIN 31 PG (26.0-33.0); MEAN CORPUSCULAR HGB CONC 34 g/dl (31.0-36.0); MEAN CORPUSCULAR VOLUME 92 fL (80-96); MONOCYTES # (AUTO) 1.1 /CMM (0.1-1.30); MONOCYTES % (AUTO) 8.6 % (2.0-12.0); NEUTROPHILS # (AUTO) 8.8 /CMM (1.8-8.9); NEUTROPHILS % (AUTO) 69.9 % (43.0-81.0); PLATELET COUNT (AUTO) 483 /CMM (150-450); RED BLOOD CELL COUNT(AUTO) 2.81 MIL/uL (4.5-6.0); WHITE BLOOD COUNT (AUTO) 12.6 K/uL (4.3-11.0)
[2017-01-09 06:57] LABS: CALCIUM, SERUM 9.1 mg/dL (8.5-10.1); CREATININE 0.6 mg/dL (0.6-1.3); PHOSPHORUS 3.4 mg/dL (2.5-4.9); POTASSIUM 4.6 mmol/L (3.5-5.1)
[2017-01-09 06:58] LABS: INR 0.91 (0.87-1.13); PROTHROMBIN TIME 9.8 SECS (9.5-12.7)
[2017-01-09] MEDS: glipiZIDE 10 MG TABLET GT SCH ×2 (07:30→16:55)
[2017-01-09] MEDS: FERROUS SULFATE UDC 300 MG/5 ML UDC GT SCH (07:40)
[2017-01-09] MEDS: ASCORBIC ACID 500 MG TABLET GT SCH (07:41)
[2017-01-09] MEDS: MULTIVIT, IRON, MIN NO. 8, FA 1 TAB TABLET GT SCH (07:41)
[2017-01-09] MEDS: ZINC SULFATE 220 MG CAPSULE GT SCH (07:41)
[2017-01-09] MEDS: GABAPENTIN 100 MG CAPSULE GT SCH ×2 (07:41→16:53)
[2017-01-09] MEDS: MAGNESIUM OXIDE 400 MG TABLET GT SCH (07:41)
[2017-01-09] MEDS: LEVETIRACETAM SOL (5 ML) 100 MG/ML UDC GT SCH ×2 (07:41→23:14)
[2017-01-09] MEDS: PANTOPRAZOLE 40 MG TABLET.DR PO SCH (07:41)
[2017-01-09] MEDS: PHENYTOIN SUSP UDC 100 MG/4 ML UDC GT SCH ×2 (07:41→16:52)
[2017-01-09] MEDS: TIMOLOL MAL/DORZOLAM HCL OPHTH 10 ML BOTTLE EACHEYE SCH ×2 (07:42→16:57)
[2017-01-09] MEDS: POLYVINYL ALCOHOL 15 ML BOTTLE EACHEYE SCH ×4 (07:43→23:12)
[2017-01-09] MEDS: LANOLIN/MIN OIL/PETROLAT,WHT 3.5 GM TUBE EACHEYE SCH ×2 (07:43→16:56)
[2017-01-09] MEDS: ASPIRIN 81 MG TAB.CHEW GT SCH (07:43)
[2017-01-09] MEDS: CLOPIDOGREL BISULFATE 75 MG TABLET GT SCH (07:44)
[2017-01-09] MEDS: METFORMIN 500 MG TABLET GT SCH ×2 (07:44→16:57)
[2017-01-09] MEDS: CARVEDILOL 6.25 MG TABLET GT SCH ×2 (07:44→17:04)
[2017-01-09] MEDS: AMLODIPINE BESYLATE 5 MG TABLET GT SCH (07:44)
[2017-01-09] MEDS: DAKINS QUARTER STRENGTH (0.125%) 480 ML BOTTLE TOP SCH (07:55)
[2017-01-09] MEDS: INSULIN DETEMIR 100 UNIT/ML CARTRIDGE SQ SCH (07:55)
[2017-01-09] MEDS: VALSARTAN 80 MG TABLET PO SCH (07:55)
[2017-01-09] MEDS: Z GUARD REMEDY 2 OZ OINT TP SCH (07:55)
[2017-01-09 08:00] VITALS: BP 100/57
[2017-01-09] MEDS: VANCOMYCIN 0.75 GM in IV D5W 250 ML IV SCH ×2 (10:12→21:19)
[2017-01-09] MEDS: GLYTROL 1,000 ML BAG GT PRN ×2 (11:50→23:13)
[2017-01-09] MEDS ORDERED: IV NS 0.9% 250 ML IV ONE (11:52)
[2017-01-09 16:00] VITALS: BP 126/72
[2017-01-09] MEDS: INSULIN REGULAR, HUMAN 100 UNIT/ML 3 ML VIAL SQ PRN (17:07)
[2017-01-09 20:00] VITALS: BP 111/61
[2017-01-09] MEDS ORDERED: SECONDARY IV SET 1 EA INFUS.SET MC ONE (21:15)
[2017-01-09] MEDS: LATANOPROST EYE DROP 0.005% 2.5 ML BOTTLE OP SCH (23:12)
[2017-01-09] MEDS: TAMSULOSIN 0.4 MG CAP.SR.24H GT SCH (23:14)
[2017-01-09] MEDS: SIMVASTATIN 10 MG TABLET GT SCH (23:14)
[2017-01-09] MEDS: ENOXAPARIN SODIUM 40 MG/0.4 ML DISP.SYRIN SQ SCH (23:16)
[2017-01-10] MEDS: PIPERACILLIN /TAZOBACTAM 3.375 G in IV D5W 50 ML IV SCH ×4 (00:01→17:31)
[2017-01-10] MEDS: INSULIN REGULAR, HUMAN 100 UNIT/ML 3 ML VIAL SQ PRN ×4 (00:04→17:27)
[2017-01-10] MEDS: BLOOD SUGAR DIAGNOSTIC 1 EACH STRIP IN SCH ×4 (00:43→17:27)
[2017-01-10 06:34] LABS: BASOPHILS % (AUTO) 0.3 % (0.0-2.0); DIFF TOTAL % 100 %; EOSINOPHILS # (AUTO) 0.4 /CMM (0.0-0.7); EOSINOPHILS % (AUTO) 2.9 % (0.0-6.0); HEMATOCRIT 24 % (39-51); LYMPHOCYTES # (AUTO) 1.6 /CMM (0.8-4.8); LYMPHOCYTES % (AUTO) 13.4 % (20.0-44.0); MEAN CORPUSCULAR HEMOGLOBIN 31 PG (26.0-33.0); MEAN CORPUSCULAR HGB CONC 33 g/dl (31.0-36.0); MEAN CORPUSCULAR VOLUME 92 fL (80-96); MONOCYTES % (AUTO) 8.6 % (2.0-12.0); NEUTROPHILS # (AUTO) 9.2 /CMM (1.8-8.9); NEUTROPHILS % (AUTO) 74.8 % (43.0-81.0); PLATELET COUNT (AUTO) 552 /CMM (150-450); RED BLOOD CELL COUNT(AUTO) 2.62 MIL/uL (4.5-6.0); WHITE BLOOD COUNT (AUTO) 12.3 K/uL (4.3-11.0)
[2017-01-10 06:52] LABS: CALCIUM, SERUM 9.2 mg/dL (8.5-10.1); CREATININE 0.7 mg/dL (0.6-1.3); PHOSPHORUS 3.1 mg/dL (2.5-4.9); POTASSIUM 4.7 mmol/L (3.5-5.1)
[2017-01-10 08:00] VITALS: BP 120/71
[2017-01-10] MEDS: glipiZIDE 10 MG TABLET GT SCH ×2 (08:02→17:19)
[2017-01-10] MEDS: CLOPIDOGREL BISULFATE 75 MG TABLET GT SCH (08:02)
[2017-01-10] MEDS: PANTOPRAZOLE 40 MG TABLET.DR PO SCH (08:02)
[2017-01-10] MEDS: ASPIRIN 81 MG TAB.CHEW GT SCH (08:02)
[2017-01-10] MEDS: ZINC SULFATE 220 MG CAPSULE GT SCH (08:02)
[2017-01-10] MEDS: FERROUS SULFATE UDC 300 MG/5 ML UDC GT SCH (08:02)
[2017-01-10] MEDS: PHENYTOIN SUSP UDC 100 MG/4 ML UDC GT SCH ×2 (08:02→17:19)
[2017-01-10] MEDS: ASCORBIC ACID 500 MG TABLET GT SCH (08:02)
[2017-01-10] MEDS: LEVETIRACETAM SOL (5 ML) 100 MG/ML UDC GT SCH ×2 (08:02→21:40)
[2017-01-10] MEDS: MULTIVIT, IRON, MIN NO. 8, FA 1 TAB TABLET GT SCH (08:02)
[2017-01-10] MEDS: MAGNESIUM OXIDE 400 MG TABLET GT SCH (08:03)
[2017-01-10] MEDS: METFORMIN 500 MG TABLET GT SCH ×2 (08:03→17:19)
[2017-01-10] MEDS: GABAPENTIN 100 MG CAPSULE GT SCH ×2 (08:03→17:19)
[2017-01-10] MEDS: POLYVINYL ALCOHOL 15 ML BOTTLE EACHEYE SCH ×4 (08:03→21:40)
[2017-01-10] MEDS: LANOLIN/MIN OIL/PETROLAT,WHT 3.5 GM TUBE EACHEYE SCH ×2 (08:03→17:20)
[2017-01-10] MEDS: TIMOLOL MAL/DORZOLAM HCL OPHTH 10 ML BOTTLE EACHEYE SCH ×2 (08:04→17:20)
[2017-01-10] MEDS: AMLODIPINE BESYLATE 5 MG TABLET GT SCH (08:04)
[2017-01-10] MEDS: CARVEDILOL 6.25 MG TABLET GT SCH ×2 (08:04→17:20)
[2017-01-10] MEDS: DAKINS QUARTER STRENGTH (0.125%) 480 ML BOTTLE TOP SCH (08:05)
[2017-01-10] MEDS: VALSARTAN 80 MG TABLET PO SCH (08:05)
[2017-01-10] MEDS: Z GUARD REMEDY 2 OZ OINT TP SCH (08:26)
[2017-01-10] MEDS: VANCOMYCIN 0.75 GM in IV D5W 250 ML IV SCH (08:26)
[2017-01-10] MEDS: GLYTROL 1,000 ML BAG GT PRN ×2 (12:48→22:39)
[2017-01-10] MEDS ORDERED: INSULIN GLARGINE, 100 UNIT/ML CARTRIDGE SQ SCH (13:00)
[2017-01-10] MEDS ORDERED: IV NS 0.9% 250 ML IV ONE (13:04)
[2017-01-10] MEDS ORDERED: BLOOD IV SET 1 EA INFUS.SET MC ONE (13:05)
[2017-01-10 15:47] VITALS: BP 113/68
[2017-01-10 16:00] VITALS: BP 113/68
[2017-01-10 16:07] VITALS: BP 128/67
[2017-01-10 18:45] VITALS: BP 107/52
[2017-01-10 20:00] VITALS: BP 117/69
[2017-01-10] MEDS: LATANOPROST EYE DROP 0.005% 2.5 ML BOTTLE OP SCH (21:40)
[2017-01-10] MEDS: SIMVASTATIN 10 MG TABLET GT SCH (21:42)
[2017-01-10] MEDS: TAMSULOSIN 0.4 MG CAP.SR.24H GT SCH (21:42)
[2017-01-10] MEDS: ENOXAPARIN SODIUM 40 MG/0.4 ML DISP.SYRIN SQ SCH (21:44)
[2017-01-11] MEDS: INSULIN REGULAR, HUMAN 100 UNIT/ML 3 ML VIAL SQ PRN ×3 (00:06→12:07)
[2017-01-11] MEDS: BLOOD SUGAR DIAGNOSTIC 1 EACH STRIP IN SCH ×3 (00:09→12:03)
[2017-01-11] MEDS ORDERED: VANCOMYCIN 0.75 GM in IV D5W 250 ML IV SCH (03:00)
[2017-01-11] MEDS: PIPERACILLIN /TAZOBACTAM 3.375 G in IV D5W 50 ML IV SCH ×4 (06:06→12:03)
[2017-01-11 06:31] LABS: BASOPHILS % (AUTO) 0.4 % (0.0-2.0); DIFF TOTAL % 100 %; EOSINOPHILS # (AUTO) 0.4 /CMM (0.0-0.7); EOSINOPHILS % (AUTO) 3.1 % (0.0-6.0); HEMATOCRIT 25 % (39-51); HEMOGLOBIN 8.4 g/dL (13.5-17.5); LYMPHOCYTES # (AUTO) 2.1 /CMM (0.8-4.8); LYMPHOCYTES % (AUTO) 16.2 % (20.0-44.0); MEAN CORPUSCULAR HEMOGLOBIN 30 PG (26.0-33.0); MEAN CORPUSCULAR HGB CONC 33 g/dl (31.0-36.0); MEAN CORPUSCULAR VOLUME 89 fL (80-96); NEUTROPHILS # (AUTO) 9.2 /CMM (1.8-8.9); NEUTROPHILS % (AUTO) 72.3 % (43.0-81.0); PLATELET COUNT (AUTO) 500 /CMM (150-450); RED BLOOD CELL COUNT(AUTO) 2.83 MIL/uL (4.5-6.0); WHITE BLOOD COUNT (AUTO) 12.8 K/uL (4.3-11.0)
[2017-01-11 06:54] LABS: CALCIUM, SERUM 9.6 mg/dL (8.5-10.1); CREATININE 0.7 mg/dL (0.6-1.3); PHOSPHORUS 3.1 mg/dL (2.5-4.9); POTASSIUM 4.7 mmol/L (3.5-5.1)
[2017-01-11 08:00] VITALS: BP 109/66
[2017-01-11] MEDS: Z GUARD REMEDY 2 OZ OINT TP SCH (08:29)
[2017-01-11] MEDS: DAKINS QUARTER STRENGTH (0.125%) 480 ML BOTTLE TOP SCH (08:30)
[2017-01-11] MEDS: TIMOLOL MAL/DORZOLAM HCL OPHTH 10 ML BOTTLE EACHEYE SCH (08:30)
[2017-01-11] MEDS: LANOLIN/MIN OIL/PETROLAT,WHT 3.5 GM TUBE EACHEYE SCH (08:31)
[2017-01-11] MEDS: POLYVINYL ALCOHOL 15 ML BOTTLE EACHEYE SCH ×2 (08:31→12:03)
[2017-01-11] MEDS: ASPIRIN 81 MG TAB.CHEW GT SCH (08:32)
[2017-01-11] MEDS: glipiZIDE 10 MG TABLET GT SCH (08:32)
[2017-01-11] MEDS: PHENYTOIN SUSP UDC 100 MG/4 ML UDC GT SCH (08:32)
[2017-01-11] MEDS: ZINC SULFATE 220 MG CAPSULE GT SCH (08:32)
[2017-01-11] MEDS: FERROUS SULFATE UDC 300 MG/5 ML UDC GT SCH (08:32)
[2017-01-11] MEDS: MULTIVIT, IRON, MIN NO. 8, FA 1 TAB TABLET GT SCH (08:32)
[2017-01-11] MEDS: METFORMIN 500 MG TABLET GT SCH (08:32)
[2017-01-11] MEDS: LEVETIRACETAM SOL (5 ML) 100 MG/ML UDC GT SCH (08:32)
[2017-01-11] MEDS: GABAPENTIN 100 MG CAPSULE GT SCH (08:32)
[2017-01-11] MEDS: CLOPIDOGREL BISULFATE 75 MG TABLET GT SCH (08:32)
[2017-01-11] MEDS: MAGNESIUM OXIDE 400 MG TABLET GT SCH (08:32)
[2017-01-11] MEDS: ASCORBIC ACID 500 MG TABLET GT SCH (08:32)
[2017-01-11 08:33] VITALS: BP 109/66
[2017-01-11] MEDS: VALSARTAN 80 MG TABLET PO SCH (08:33)
[2017-01-11] MEDS: AMLODIPINE BESYLATE 5 MG TABLET GT SCH (08:33)
[2017-01-11] MEDS: CARVEDILOL 6.25 MG TABLET GT SCH (08:33)
[2017-01-11] MEDS: PANTOPRAZOLE 40 MG TABLET.DR PO SCH (08:34)
[2017-01-11] MEDS: GLYTROL 1,000 ML BAG GT PRN (08:42)
[2017-01-11] MEDS ORDERED: INSULIN DETEMIR 100 UNIT/ML CARTRIDGE SQ SCH (09:00)
[2017-01-11] MEDS ORDERED: LACTOBACILLUS RHAMNOSUS GG 1 EACH CAP.SPRINK PO SCH (17:00)
== END 2017-01-11 14:58 | DRG 853 ==
LOC: ER 11:43 → MEDSG1 13:55 → MEDSG2 01-03 09:40
PROVIDERS: ADMIT Internal Medicine; ATTEND Internal Medicine
PROC: 0KBN0ZZ Excision of Right Hip Muscle, Open Approach (ICD-10-PCS; principal; 2017-01-04)
PROC: 30233N1 Transfusion of Nonautologous Red Blood Cells into Peripheral Vein, Percutaneous Approach (ICD-10-PCS; 2017-01-06)
PROC: 0KBN0ZZ Excision of Right Hip Muscle, Open Approach (ICD-10-PCS; 2017-01-09)
PROC: 05H533Z Insertion of Infusion Device into Right Subclavian Vein, Percutaneous Approach (ICD-10-PCS; 2017-01-10)
DX: A41.9 Sepsis, unspecified organism (principal); G93.40 Encephalopathy, unspecified; R53.2 Functional quadriplegia; L89.314 Pressure ulcer of right buttock, stage 4; L89.154 Pressure ulcer of sacral region, stage 4; N39.0 Urinary tract infection, site not specified; D62 Acute posthemorrhagic anemia; R13.10 Dysphagia, unspecified; Z86.73 Personal history of transient ischemic attack (TIA), and cerebral infarction without residual deficits; K21.9 Gastro-esophageal reflux disease without esophagitis; E78.5 Hyperlipidemia, unspecified; F03.90 Unspecified dementia, unspecified severity, without behavioral disturbance, psychotic disturbance, mood disturbance, and anxiety; I10 Essential (primary) hypertension; I25.10 Atherosclerotic heart disease of native coronary artery without angina pectoris; I25.5 Ischemic cardiomyopathy; Z93.1 Gastrostomy status; L89.621 Pressure ulcer of left heel, stage 1; L89.611 Pressure ulcer of right heel, stage 1; D69.2 Other nonthrombocytopenic purpura; E11.65 Type 2 diabetes mellitus with hyperglycemia; D50.0 Iron deficiency anemia secondary to blood loss (chronic); G40.909 Epilepsy, unspecified, not intractable, without status epilepticus; R62.7 Adult failure to thrive; Z86.011 Personal history of benign neoplasm of the brain; H40.9 Unspecified glaucoma; Z68.20 Body mass index [BMI] 20.0-20.9, adult; N40.1 Benign prostatic hyperplasia with lower urinary tract symptoms
CPT/HCPCS: 36415; 71010-TC; 80048-TC; 80076-TC; 80202-TC; 81000-TC; 82728-TC; 82962-TC; 83540-TC; 83605-TC; 83735-TC; 84100-TC; 84134-TC; 84484-TC; 85025-TC; 85730-TC; 86850-TC; 86921-TC; 87040-TC; 87081-TC; 87086-TC; 93307-TC; 94799-TC; A4216; A4217; A4606; A6253; A6402; A6403; A9563; J1580; J1650; J1815; J1953; J2543; J3370; J3475; J7030; J7050; J7060; P9016-BL; Z7610

== ENCOUNTER 2017-09-27 08:25 | Inpatient (IN) | payer MEDICARE, MEDICAID ==
[~2017-09-27] VITALS: Ht 175.3 cm; Wt 83.5 kg
[2017-09-27] VITALS (32 sets, daily range): BP systolic 80–164; BP diastolic 49–128
[~2017-09-27 08:25] MED LIST: ACET-868 GT; AMLO5TAB2 GT; ASCO-340 GT; ASPI81TA2 GT; BIMA2.5D5 EACHEYE; CARV6.252 GT; CLOP75TA2 GT; DORZ10DR13 EACHEYE; FERR220S2 GT; GABA-532 GT; LEVE500T9 GT; MAGN250T37 GT; MAGN400O6 GT; METF500T4 GT; MINE3.5O EACHEYE; MULT9LIQ GT; NUT.237L30 GT; PANT40TA2 GT; PHEN100O4 GT; POLY15DR57 EACHEYE; SIMV10TA2 GT; TAMS-12 GT; VALS80TA26 PO; ZINC220T GT
[2017-09-27] MEDS ORDERED: SUCCINYLCHOLINE CHLORIDE 20 MG/ML VIAL IV ONE ×2 (08:30→14:24)
[2017-09-27] MEDS ORDERED: ETOMIDATE 2 MG/ML VIAL IV ONE ×2 (08:30→14:24)
[2017-09-27] MEDS ORDERED: IV NS 0.9% 1,000 ML BAG IV ONE ×2 (08:30→11:30)
--- NOTE | 2017-09-27 08:30 | NUR ---
JAMES Burks FROM [facility] FOR SOB, BREATHING TREATMENT IN THE FIELD X 1. AFEBRILE 100.1F RECTAL TEMP. TACHYPNEIC. PLACED ON MONITOR. DR BRADLEY AT FOR EVAL. WHEEZING SEAMLESS TUBE DRAWER PER RECREATIONAL THERAPY TECHNICIAN REPORT.
--- NOTE | 2017-09-27 08:40 | NUR ---
SUCCESSFUL RSI DONE BY DR. BRADLEY. RTS AT BS. MEDS GIVEN PER PROTOCOL. WILL CLOSELY MONITOR.
--- NOTE | 2017-09-27 08:43 | NUR ---
panel on-call paged
[2017-09-27 08:44] LABS: BASOPHILS # (AUTO) 0.1 /CMM (0.0-0.2); BASOPHILS % (AUTO) 0.6 % (0.0-2.0); EOSINOPHILS # (AUTO) 0.6 /CMM (0.0-0.7); EOSINOPHILS % (AUTO) 4.2 % (0.0-6.0); HEMATOCRIT 41 % (39-51); HEMOGLOBIN 13.3 g/dL (13.5-17.5); LYMPHOCYTES # (AUTO) 2.8 /CMM (0.8-4.8); LYMPHOCYTES % (AUTO) 19.2 % (20.0-44.0); MEAN CORPUSCULAR HEMOGLOBIN 31 PG (26.0-33.0); MEAN CORPUSCULAR HGB CONC 33 g/dl (31.0-36.0); MEAN CORPUSCULAR VOLUME 94 fL (80-96); MONOCYTES # (AUTO) 1.3 /CMM (0.1-1.30); MONOCYTES % (AUTO) 8.6 % (2.0-12.0); NEUTROPHILS % (AUTO) 67.4 % (43.0-81.0); PLATELET COUNT (AUTO) 296 /CMM (150-450); RDW COEFFICIENT OF VARIATION 14.1 (11.5-15.0); RED BLOOD CELL COUNT(AUTO) 4.34 MIL/uL (4.5-6.0); WHITE BLOOD COUNT (AUTO) 14.8 K/uL (4.3-11.0)
[2017-09-27] MEDS ORDERED: ACETAMINOPHEN 650 MG/SUPP.RECT RC ONE ×2 (08:44→09:00)
[2017-09-27] MEDS ORDERED: PROPOFOL 100 ML IV ONE (08:51)
--- NOTE | 2017-09-27 08:55 | NUR ---
Patient received in ER with moderate amount of shortness of breath. Assisted Dr Ni with intubation. Pt intubated with size 7.5 ETT secured @24cm lip. Tube placement confirmed via breath sounds and xray. Placed on [facility] vent with MD ordered settings. Sputum sample obtained and sent to lab. Sx moderate amount of thick yellow secretions. Vent alarms are set and audible per protocol. Vent plugged into red outlet. Ambu bag at bedside. Will continue to monitor t/o shift. Addendum: 09/27/17 at 0911 by TIFFANIE SIM RT Amended: Links added.
[2017-09-27] MEDS ORDERED: VANCOMYCIN 1 GM in IV D5W 250 ML IV ONE (09:00)
[2017-09-27] MEDS ORDERED: PIPERACILLIN /TAZOBACTAM 3.375 G in IV D5W 50 ML IV ONE (09:00)
[2017-09-27] MEDS ORDERED: PROPOFOL 100 ML IV PRN (09:00)
[2017-09-27] MEDS ORDERED: IPRA3AMP IH (09:02)
[2017-09-27] MEDS ORDERED: INSU300I SQ (09:02)
[2017-09-27] MEDS ORDERED: BISA10SU8 RC (09:02)
[2017-09-27] MEDS ORDERED: PROM6.25 GT (09:02)
[2017-09-27] MEDS ORDERED: BRIM5DRO3 EACHEYE (09:02)
[2017-09-27] MEDS ORDERED: TERA2CAP4 GT (09:02)
[2017-09-27] MEDS ORDERED: LISI-607 GT (09:02)
[2017-09-27] MEDS ORDERED: ATOR10TA GT (09:02)
[2017-09-27] MEDS ORDERED: METO5SOL2 GT (09:02)
[2017-09-27] MEDS ORDERED: NA P133E RC (09:02)
[2017-09-27] MEDS ORDERED: ONDA4TAB5 GT (09:02)
[2017-09-27] MEDS ORDERED: BLOO-668 IN (09:02)
[2017-09-27] MEDS ORDERED: INSU100V11 SQ (09:02)
[2017-09-27] MEDS ORDERED: AMIN30LI4 GT (09:02)
--- NOTE | 2017-09-27 09:10 | NUR ---
PT CAME IN WITH FC- DISCONTINUED IT AND PUT A NEW FC- WAITING FOR URINE SAMPLE.
[2017-09-27 09:13] LABS: INR 0.9 (0.87-1.13); PROTHROMBIN TIME 9.4 SECS (9.5-12.7)
--- NOTE | 2017-09-27 09:15 | NUR ---
AT DISCUSSING POC WITH PT'S DAUGHTER.
[2017-09-27 09:19] LABS: CALCIUM, SERUM 10.2 mg/dL (8.5-10.1); CARBON DIOXIDE 28 mmol/L (21-32); CHLORIDE 98 mmol/L (98-107); CREATININE 1.2 mg/dL (0.6-1.3); POTASSIUM 4.7 mmol/L (3.5-5.1); SODIUM SERUM 135 mmol/L (136-145); UREA NITROGEN, BLOOD 38 mg/dL (7-18)
--- NOTE | 2017-09-27 09:24 | NUR ---
CALLED [facility] [phone] ITS [place] AND WILL CALL US BACK
[2017-09-27 09:25] LABS: ALANINE AMINOTRANSFERASE 18 U/L (12-78); ALBUMIN 2.8 g/dL (3.4-5.0); ALKALINE PHOSPHATASE 108 U/L (46-116); ASPARTATE AMINOTRANSFERASE 11 U/L (15-37); BILIRUBIN,TOTAL 0.2 mg/dL (0.2-1.0); TOTAL PROTEIN, SERUM 8.3 g/dL (6.4-8.2)
[2017-09-27 09:27] LABS: TROPONIN I 0.028 ng/mL (0.00-0.056)
[2017-09-27] MEDS ORDERED: HYDROMORPHONE INJ 2 MG/ML DISP.SYRIN ONE (09:32)
[2017-09-27 09:35] LABS: GLUCOSE 350 mg/dL (74-106)
[2017-09-27 09:40] LABS: ABG BASE EXCESS -2.2 mmol/L; ABG OXYGEN SATURATION 98.7 % (92.0-98.5); ABG PCO2 45.1 mmHg (35.0-45.0); ABG PH 7.338 (7.350-7.450); ABG PO2 166.6 mmHg (75.0-100.0); AaDO2 501.3 mmHg; COHb 0.7 % (0.5-1.5); MetHb 0.3 % (0.0-1.5); O2Hb 97.7 % (94.0-97.0); PEEP,BG 0 cm H2O; SITE, ABG Right Radial; VENT MODE, BG AC 16 550 100% 0
--- NOTE | 2017-09-27 09:50 | NUR ---
no call back from [facility] nephrology, paged again
[2017-09-27] MEDS ORDERED: HYDROMORPHONE INJ 2 MG/ML DISP.SYRIN IV ONE (10:00)
--- NOTE | 2017-09-27 10:03 | NUR ---
REPORT GIVEN TO CARLOS CHARGE NURSE FOR ICU 261.
--- NOTE | 2017-09-27 10:13 | NUR ---
MD MADE AWARE OF BP- VERBAL ORDERS RECEIVED FOR NS BOLUS- ORDERS RATNA OUT.
--- NOTE | 2017-09-27 10:31 | NUR ---
FISHING MANAGER AT FOR BLOOD DRAW.
--- NOTE | 2017-09-27 10:50 | NUR ---
RN INITIAL NOTES RECEIVED PT FROM ER VIA RAIN. INTUBATED, ON MECH VENT. NO RESPIRATORY DISTRESS NOTED. NO SOB NOTED. NO SIGNS OF PAIN NOTED. PT SEDATED, ON DIPRIVAN AT 10MCG/KG/MIN STARTED IN ER. IV LINES IN PLACE. FC IN PLACE. HEMATURIA NOTED. BODY ASSESSMENT DONE. PICTURE TAKEN AND WILL PLACE IN THE CHART. DR. DIANA COBB AT BEDSIDE, ADMISSION ORDERS MADE, NOTED AND CARRIED OUT. PT PLACED ON BILATERAL SOFT WRIST RESTRAINTS. NO CIRCULATORY IMPAIRMENT NOTED. BLE ELEVATED. WILL CONTINUE TO MONITOR. Addendum: 09/27/17 at 1106 by THOMAS BOONE RN PT HAS GT, PATENT AND CLAMPED.
[2017-09-27] MEDS ORDERED: DEXTROSE 50%-WATER 50 ML DISP.SYRIN IV PRN (11:00)
[2017-09-27] MEDS: PROPOFOL 100 ML IV PRN ×2 (11:02→17:20)
[2017-09-27] MEDS ORDERED: MORPHINE SULFATE INJ 2 MG/ML DISP.SYRIN IV PRN (11:30)
[2017-09-27] MEDS: IPRATROPIUM NEB FS 0.5 MG/2.5 ML AMPUL.NEB NEB SCH ×4 (11:39→23:01)
[2017-09-27] MEDS: ALBUTEROL FS 2.5 MG/3 ML VIAL.NEB NEB SCH ×4 (11:39→23:01)
[2017-09-27] MEDS: ENOXAPARIN SODIUM 40 MG/0.4 ML DISP.SYRIN SQ SCH (11:53)
[2017-09-27] MEDS: BLOOD SUGAR DIAGNOSTIC 1 EACH STRIP IN SCH ×3 (11:54→23:46)
[2017-09-27] MEDS ORDERED: VANCOMYCIN 1 GM in IV D5W 250 ML IV SCH ×2 (12:00→13:00)
[2017-09-27] MEDS ORDERED: FEE PK DOSING 1 MIN EA MC ONE (12:09)
[2017-09-27] MEDS: PIPERACILLIN /TAZOBACTAM 3.375 G in IV D5W 50 ML IV SCH ×3 (12:37→23:27)
[2017-09-27 12:45] LABS: APPEARANCE,URINE CLOUDY (CLEAR); BILIRUBIN,URINE NEGATIVE (NEGATIVE); BLOOD, URINE 3+ Ery/uL (NEGATIVE); COLOR,URINE DARK YELLO (YELLOW); KETONES,URINE NEGATIVE (NEGATIVE); LEUKOCYTE ESTERASE ,URINE 2+ (NEGATIVE); NITRITE, URINE NEGATIVE (NEGATIVE); PROTEIN,URINE 2+ mg/dl (NEGATIVE); UGLUCOSE 1+ mg/dL (NEGATIVE); UROBILINOGEN,URINE 0.2 EU/dL (0.2)
[2017-09-27 13:00] LABS: BACTERIA,URINE Few /HPF (None Seen); RBC,URINE TOO NUMEROUS TO COUN /HPF (0-2); SQUAMOUS EPITHELIAL CELL,UR Few /HPF (None Seen)
[2017-09-27] MEDS ORDERED: BISACODYL SUPP (10 MG) 10 MG/SUPP.RECT SUPP.RECT RC PRN (13:00)
[2017-09-27] MEDS ORDERED: ALBUTEROL FS 2.5 MG/3 ML VIAL.NEB NEB PRN (13:00)
[2017-09-27] MEDS ORDERED: ACETAMINOPHEN 650 MG/20.3 ML UDC PO PRN (13:00)
[2017-09-27] MEDS: BRIMONIDINE TARTRATE OPHT SOLN 5 ML BOTTLE EACHEYE SCH ×2 (13:21→16:26)
[2017-09-27] MEDS: POLYVINYL ALCOHOL 15 ML BOTTLE OP SCH ×2 (13:30→17:58)
[2017-09-27] MEDS: IV D5/ 0.9% NACL 1,000 ML IV PRN (13:44)
[2017-09-27] MEDS: INSULIN REGULAR, HUMAN 100 UNIT/ML 3 ML VIAL SQ PRN ×3 (14:11→23:47)
--- NOTE | 2017-09-27 14:48 | NUR ---
RN NOTES CALLED DR. COBB REGARDING LACTIC ACID 3.9. GIVEN TOTAL OF NS 2L AND ON D5 NS AT 100ML/HR. MD ORDERED NS [id number]. NOTED AND CARRIED OUT.
[2017-09-27] MEDS ORDERED: IV NS 0.9% 1,000 ML IV ONE (15:00)
[2017-09-27] MEDS: PHENYTOIN SUSP UDC 100 MG/4 ML UDC GT SCH (16:25)
[2017-09-27] MEDS: TIMOLOL MAL/DORZOLAM HCL OPHTH 10 ML BOTTLE EACHEYE SCH (16:25)
[2017-09-27] MEDS ORDERED: CARVEDILOL 6.25 MG TABLET GT SCH (17:00)
--- NOTE | 2017-09-27 17:38 | NUR ---
RN NOTES CALLED DR. DIANA COBB REGARDING PT'S SBP ON 80-90S. PEEP 0. MD ORDERED LEVO AND PICC LINE INSERTION. LAKESHA YARBROUGHDENTAL OFFICE ASSISTANT AWARE. WILL MONITOR.
[2017-09-27] MEDS ORDERED: NOREPINEPHRINE 16 MG in IV D5W 500 ML IV PRN (18:00)
--- NOTE | 2017-09-27 18:40 | NUR ---
RN CLOSING NOTES PT REMAINS INTUBATED, ON MECH VENT. NO RESPIRATORY DISTRESS NOTED. NO SOB NOTED. KEPT HOB ELEVATED. IV LINES IN PLACE. ON DIPRIVAN AT 20MCG/KG/MIN. PT SEDATED. TOLERATING IVF WELL. GT IN PLACE. FC IN PLACE, STILL WITH HEMATURIA. KEPT CLEAN AND DRY. REPOSITIONED Q2. BLE ELEVATED. WILL ENDORSE FOR CONTINUITY OF CARE.
[2017-09-27] MEDS: LEVETIRACETAM SOL (5 ML) 100 MG/ML UDC GT SCH (20:05)
[2017-09-27] MEDS: Z GUARD REMEDY 4 OZ OINT TP SCH (20:05)
[2017-09-27] MEDS: ATORVASTATIN 10 MG TABLET GT SCH (21:07)
[2017-09-27] MEDS: TERAZOSIN HCL 1 MG CAPSULE GT SCH (21:08)
[2017-09-27] MEDS: TAMSULOSIN 0.4 MG CAP.SR.24H GT SCH (21:08)
[2017-09-27] MEDS: LATANOPROST EYE DROP 0.005% 2.5 ML BOTTLE EACHEYE SCH (21:14)
[2017-09-28] VITALS (42 sets, daily range): BP systolic 96–146; BP diastolic 60–88
[2017-09-28] MEDS: IV D5/ 0.9% NACL 1,000 ML IV PRN ×2 (01:18→11:44)
[2017-09-28] MEDS: IPRATROPIUM NEB FS 0.5 MG/2.5 ML AMPUL.NEB NEB SCH ×3 (03:30→11:54)
[2017-09-28] MEDS: ALBUTEROL FS 2.5 MG/3 ML VIAL.NEB NEB SCH ×3 (03:30→11:54)
[2017-09-28 05:10] LABS: BASOPHILS % (AUTO) 0.3 % (0.0-2.0); EOSINOPHILS # (AUTO) 0.3 /CMM (0.0-0.7); EOSINOPHILS % (AUTO) 2.2 % (0.0-6.0); HEMATOCRIT 29 % (39-51); HEMOGLOBIN 9.6 g/dL (13.5-17.5); LYMPHOCYTES # (AUTO) 1.5 /CMM (0.8-4.8); LYMPHOCYTES % (AUTO) 12.5 % (20.0-44.0); MEAN CORPUSCULAR HEMOGLOBIN 32 PG (26.0-33.0); MEAN CORPUSCULAR HGB CONC 34 g/dl (31.0-36.0); MEAN CORPUSCULAR VOLUME 94 fL (80-96); MONOCYTES # (AUTO) 0.9 /CMM (0.1-1.30); MONOCYTES % (AUTO) 7.8 % (2.0-12.0); NEUTROPHILS # (AUTO) 9.4 /CMM (1.8-8.9); NEUTROPHILS % (AUTO) 77.2 % (43.0-81.0); PLATELET COUNT (AUTO) 217 /CMM (150-450); RED BLOOD CELL COUNT(AUTO) 3.04 MIL/uL (4.5-6.0); WHITE BLOOD COUNT (AUTO) 12.2 K/uL (4.3-11.0)
[2017-09-28 05:32] LABS: CALCIUM, SERUM 8.4 mg/dL (8.5-10.1); MAGNESIUM 1.6 mg/dL (1.8-2.4); PHOSPHORUS 2.3 mg/dL (2.5-4.9); POTASSIUM 3.7 mmol/L (3.5-5.1)
[2017-09-28] MEDS ORDERED: VANCOMYCIN 1 GM in IV D5W 250 ML IV SCH (06:00)
[2017-09-28] MEDS: PIPERACILLIN /TAZOBACTAM 3.375 G in IV D5W 50 ML IV SCH ×4 (06:20→23:22)
[2017-09-28] MEDS: PROPOFOL 100 ML IV PRN (06:22)
[2017-09-28] MEDS: BLOOD SUGAR DIAGNOSTIC 1 EACH STRIP IN SCH ×4 (06:36→23:27)
--- NOTE | 2017-09-28 07:05 | NUR ---
RN INITIAL NOTES RECEIVED PT, INTUBATED, ON MECH VENT. NO RESPIRATORY DISTRESS NOTED. NO SOB NOTED. NO SIGNS OF PAIN NOTED. PT SEDATED, ON DIPRIVAN AT 10MCG/KG/MIN, WILL TITRATE ACCORDINGLY. IV LINES IN PLACE. IVF INFUSING. GT IN PLACE, CLAMPED. FC IN PLACE. STILL WITH HEMATURIA NOTED. PT PLACED ON BILATERAL SOFT WRIST RESTRAINTS. NO CIRCULATORY IMPAIRMENT NOTED. BLE ELEVATED. WILL CONTINUE TO MONITOR.
[2017-09-28] MEDS: INSULIN REGULAR, HUMAN 100 UNIT/ML 3 ML VIAL SQ PRN ×4 (07:06→23:30)
--- NOTE | 2017-09-28 07:55 | NUR ---
RT PT RECEIVED ORALLY INTUBATED WITH A 7.5 ETT SECURED AT THE LIP LINE ON THE VENT. PT RESPONDS TO PAINFUL STIMULI. VENT ALARMS ARE SET AND AUDIBLE WITH BVM BY BEDSIDE. WEB GRAPHIC DESIGNER CUFF PRESSURE NOTED. VENT IS PLUGGED INTO RED OUTLET. SX SMALL THIN CLEAR/WHITE SECRETIONS. NO RESPIRATORY DISTRESS NOTED AT THIS TIME, WILL CONTINUE TO MONITOR. Addendum: 09/28/17 at 1802 by ABDELRAHMAN POOLE RT Amended: Links added. Addendum: 09/28/17 at 1803 by ABDELRAHMAN POOLE RT 7.5 ETT SECURED 26CM AT THE LIP LINE.
[2017-09-28] MEDS: ASCORBIC ACID 500 MG TABLET GT SCH (08:27)
[2017-09-28] MEDS: ASPIRIN 81 MG TAB.CHEW GT SCH (08:27)
[2017-09-28] MEDS: PANTOPRAZOLE 40 MG/PACK PACK GT SCH (08:27)
[2017-09-28] MEDS: PHENYTOIN SUSP UDC 100 MG/4 ML UDC GT SCH ×2 (08:27→17:08)
[2017-09-28] MEDS: MULTIVIT, IRON, MIN NO. 8, FA 1 TAB GT SCH (08:27)
[2017-09-28] MEDS: LEVETIRACETAM SOL (5 ML) 100 MG/ML UDC GT SCH ×2 (08:27→21:33)
[2017-09-28] MEDS: POLYVINYL ALCOHOL 15 ML BOTTLE OP SCH ×3 (08:28→17:15)
[2017-09-28] MEDS: Z GUARD REMEDY 4 OZ OINT TP SCH ×2 (08:28→21:34)
[2017-09-28] MEDS: TIMOLOL MAL/DORZOLAM HCL OPHTH 10 ML BOTTLE EACHEYE SCH ×2 (08:28→17:09)
[2017-09-28] MEDS: BRIMONIDINE TARTRATE OPHT SOLN 5 ML BOTTLE EACHEYE SCH ×3 (08:28→17:09)
[2017-09-28] MEDS: ENOXAPARIN SODIUM 40 MG/0.4 ML DISP.SYRIN SQ SCH (08:34)
[2017-09-28] MEDS ORDERED: LISINOPRIL (5MG) 5 MG TABLET GT SCH (09:00)
--- NOTE | 2017-09-28 10:20 | NUR ---
RN NOTES SEEN AND EXAMINED BY DR. REINA. AWARE OF CURRENT VENT SETTINGS AND CXR RESULT. DIPRIVAN OFF FOR SEDATION VACATION. PT ABLE TO OPEN EYES UPON VERBAL AND TACTILE STIMULI. UNABLE TO FOLLOW COMMANDS. PER MD, DECREASE FI02 TO 40%. TROY TRUJILLO NOTIFIED. WILL MONITOR.
[2017-09-28] MEDS ORDERED: GLYTROL 1,000 ML BAG GT PRN (10:30)
--- NOTE | 2017-09-28 10:30 | NUR ---
RN NOTES SEEN AND EXAMINED BY DR. JOAN ARIZMENDI. AWARE OF LAB VALUES: WBC 12.2, AFEBRILE. ON IV ATB. NO ASE NOTED. HGB9.6, HCT 29, BUN 28, MG 1.6, PHOS 2.3. MD ALSO AWARE OF CXR RESULT. DIETARY RECOMMENDATION RELAYED TO MD AND AGREED, ORDERED GLYTROL AT 70ML/[id number] AND PROSTAT TID. MD ALSO ORDERED REPLACEMENT FOR MG AND PHOS. NOTED AND CARRIED OUT. WILL MONITOR.
[2017-09-28] MEDS: Magnesium 1GM/D5W 100ML PREMIX 1 G in PREMIX 1 EA IV SCH ×2 (11:36→13:11)
[2017-09-28] MEDS: Potassium Phosphate meq 11 MEQ in IV D5W 100 ML IV SCH ×2 (11:54→14:46)
[2017-09-28] MEDS: PROSOURCE / PROSTAT (PYXIS) 30 ML UDC GT SCH ×2 (12:10→17:08)
[2017-09-28] MEDS ORDERED: IPRATROPIUM NEB FS 0.5 MG/2.5 ML AMPUL.NEB NEB PRN (15:30)
[2017-09-28] MEDS ORDERED: ALBUTEROL FS 2.5 MG/0.5 ML VIAL.NEB NEB PRN (15:30)
[2017-09-28] MEDS: LACTOBACILLUS RHAMNOSUS GG 1 EACH CAP.SPRINK GT SCH (17:08)
--- NOTE | 2017-09-28 18:37 | NUR ---
RN CLOSING NOTES PT REMAINS INTUBATED, ON MECH VENT. NO RESPIRATORY DISTRESS NOTED. NO SOB NOTED. KEPT HOB ELEVATED. PICC LINE IN PLACE. TOLERATING IVF WELL. GT IN PLACE, TOLERATING GTF. FC IN PLACE. ADEQUATE OUTPUT NOTED. KEPT CLEAN AND DRY. REPOSITIONED Q2. BLE ELEVATED. WILL ENDORSE FOR CONTINUITY OF CARE.
--- NOTE | 2017-09-28 19:30 | NUR ---
PROGRAM HOST: RECEIVED INTUBATED PT WT MECHANICAL VENT SETTINGS ORDERED. EYES OPEN SPONTANEOUSLY WT NO ACUTE DISTRESS, NO EVIDENCE OF DISCOMFORT. UNABLE TO FOLLOW COMMANDS. SR ON YARN PREPARATION SUPERVISOR. TOLERATING GTF WT 5CC RESIDUAL. CONTINUE ON D5NS AT 100ML/HR WT NO COMPLICATIONS NOTED ON RAÚL PICC LINE. FC PATENT AND INTACT DRAINING YELLOW URINE TO GRAVITY. BILAT. SOFT WRIST RESTRAINTS IN PLACE TO PREVENT SELF-EXTUBATION; CIRCULATION WTN NORMAL LIMITS AND NO NEW SKIN BREAKDOWN. HOB ELEVATED AT 45 DEGREES. SEIZURE AND SAFETY PRECAUTION NOTED.
[2017-09-28] MEDS: ATORVASTATIN 10 MG TABLET GT SCH (21:34)
[2017-09-28] MEDS: TAMSULOSIN 0.4 MG CAP.SR.24H GT SCH (21:34)
[2017-09-28] MEDS: TERAZOSIN HCL 1 MG CAPSULE GT SCH (21:34)
[2017-09-28] MEDS: LATANOPROST EYE DROP 0.005% 2.5 ML BOTTLE EACHEYE SCH (21:36)
[2017-09-28] MEDS: INSULIN DETEMIR 100 UNIT/ML CARTRIDGE SQ SCH (21:43)
--- NOTE | 2017-09-28 22:10 | NUR ---
CLINICAL CYTOGENETICIST SCIENTIST: CALLED AND NOTIFIED DR. PEREZ THAT PT'S BLOOD SUGAR HAS BEEN TRENDING HIGH AND RECOMMENDED TO DC IVF PT IS ALREADY ON GTF. MD AGREED TO DC IVF. NOTED AND CARRIED OUT. DAUGHTER AT BEDSIDE MADE AWARE.
--- NOTE | 2017-09-28 23:00 | NUR ---
ORAL AND MAXILLOFACIAL PATHOLOGIST: PT HAS NO EPISODE OF TRYING TO REACH TUBINGS/LIFE SUSTAINING TUBES. ORDER OBTAINED TO DISCONTINUE RESTRAINTS AT THIS TIME.
[2017-09-28] MEDS: IV NS 0.9% 250 ML IV PRN (23:19)
[2017-09-29] VITALS (35 sets, daily range): BP systolic 99–155; BP diastolic 57–92
--- NOTE | 2017-09-29 04:00 | NUR ---
ELEMENTARY SCHOOL SCIENCE TEACHER: BED BATH GIVEN AND TOLERATED WELL. VS WITHIN HIS BASELINE. NO ACUTE DISTRESS, NO EVIDENCE OF DISCOMFORT.
[2017-09-29 04:58] LABS: BASOPHILS % (AUTO) 0.3 % (0.0-2.0); EOSINOPHILS # (AUTO) 0.8 /CMM (0.0-0.7); HEMATOCRIT 28 % (39-51); HEMOGLOBIN 9.2 g/dL (13.5-17.5); LYMPHOCYTES # (AUTO) 1.7 /CMM (0.8-4.8); LYMPHOCYTES % (AUTO) 14.8 % (20.0-44.0); MEAN CORPUSCULAR HEMOGLOBIN 31 PG (26.0-33.0); MEAN CORPUSCULAR HGB CONC 33 g/dl (31.0-36.0); MEAN CORPUSCULAR VOLUME 94 fL (80-96); MONOCYTES % (AUTO) 8.6 % (2.0-12.0); NEUTROPHILS # (AUTO) 7.8 /CMM (1.8-8.9); NEUTROPHILS % (AUTO) 69.3 % (43.0-81.0); PLATELET COUNT (AUTO) 232 /CMM (150-450); RDW COEFFICIENT OF VARIATION 13.9 (11.5-15.0); RED BLOOD CELL COUNT(AUTO) 2.98 MIL/uL (4.5-6.0); WHITE BLOOD COUNT (AUTO) 11.3 K/uL (4.3-11.0)
[2017-09-29 05:04] LABS: CALCIUM, SERUM 8.5 mg/dL (8.5-10.1); CREATININE 0.9 mg/dL (0.6-1.3); MAGNESIUM 1.8 mg/dL (1.8-2.4); PHOSPHORUS 2.1 mg/dL (2.5-4.9); POTASSIUM 3.6 mmol/L (3.5-5.1)
[2017-09-29] MEDS: PIPERACILLIN /TAZOBACTAM 3.375 G in IV D5W 50 ML IV SCH ×3 (05:47→17:25)
[2017-09-29] MEDS: BLOOD SUGAR DIAGNOSTIC 1 EACH STRIP IN SCH ×3 (05:55→17:24)
[2017-09-29] MEDS: INSULIN REGULAR, HUMAN 100 UNIT/ML 3 ML VIAL SQ PRN ×3 (05:57→17:28)
--- NOTE | 2017-09-29 06:30 | NUR ---
SUPPLY CHAIN ASSOCIATE: NO SIGNIFICANT ZANDER DURING THE SHIFT. STILL OFF SEDATION AND RESTRAINTS WT NO ACUTE DISTRESS OR RESTLESSNESS NOTED. EYES OPENED SPONTANEOUSLY AND WITHDRAWS TO LOCALIZED PAIN. BLOOD SUGAR RESULT NOW TRENDING DOWN AT 242 FROM 312 AND COVERED WT INSULIN PER SLIDING SCALE. REMAINED SR ON FONDANT MACHINE OPERATOR. ALL NEEDS MET. HOB ELEVATED AT 35 DEGREES.
--- NOTE | 2017-09-29 07:00 | NUR ---
icu initial note received report from alexandra, yennifer pt able to open eyes to name, does not track nor follows commands, pt is unable to move extremities, pt is intubated ett 7.5 @ lipline ac 16 tv 550 fio2 40% peep 0, sating well, no s/s of resp.distress or sob noted at this time, pt is on bedside monitor showing sr 90's, no s/s of discomfort or chest pain at this time, pt has f/c draining yellow urine to gravity, pt has gtube, clamped at this time, intact/patent, flushing well, no residuals noted, gytrol feeding held at this time per order, pt has yonatan picc,c/d/i/patent, flushing well, good blood return, l hand #18g,sl, r hand #20,sl, no s/s of infection/ infiltration noted at this time, pt is noted with multiple skin issues, all wound treatment will be carried out, all safety measures in place at all times, call light within easy reach, will monitor pt closely for changes
--- NOTE | 2017-09-29 08:30 | NUR ---
ICU NOTE DIETARY MADE ROUNDS, FEEDING WAS CHANGED TO GLYTROL @60ML/HR, MD REANNA AWARE
[2017-09-29] MEDS: PROSOURCE / PROSTAT (PYXIS) 30 ML UDC GT SCH ×3 (08:56→16:47)
[2017-09-29] MEDS: ENOXAPARIN SODIUM 40 MG/0.4 ML DISP.SYRIN SQ SCH (08:56)
[2017-09-29] MEDS: LACTOBACILLUS RHAMNOSUS GG 1 EACH CAP.SPRINK GT SCH ×2 (08:57→16:47)
[2017-09-29] MEDS: ASPIRIN 81 MG TAB.CHEW GT SCH (08:57)
[2017-09-29] MEDS: MULTIVIT, IRON, MIN NO. 8, FA 1 TAB GT SCH (08:57)
[2017-09-29] MEDS: ASCORBIC ACID 500 MG TABLET GT SCH (08:57)
[2017-09-29] MEDS: LEVETIRACETAM SOL (5 ML) 100 MG/ML UDC GT SCH ×2 (08:57→21:12)
[2017-09-29] MEDS: PANTOPRAZOLE 40 MG/PACK PACK GT SCH (08:57)
[2017-09-29] MEDS: PHENYTOIN SUSP UDC 100 MG/4 ML UDC GT SCH ×2 (08:57→16:47)
[2017-09-29] MEDS: Z GUARD REMEDY 4 OZ OINT TP SCH ×2 (08:59→21:24)
[2017-09-29] MEDS: TIMOLOL MAL/DORZOLAM HCL OPHTH 10 ML BOTTLE EACHEYE SCH ×2 (09:00→16:46)
[2017-09-29] MEDS: POLYVINYL ALCOHOL 15 ML BOTTLE OP SCH ×3 (09:00→16:47)
[2017-09-29] MEDS: BRIMONIDINE TARTRATE OPHT SOLN 5 ML BOTTLE EACHEYE SCH ×3 (09:00→16:46)
--- NOTE | 2017-09-29 10:30 | NUR ---
icu note dr. pepe made rounds, aware of labs and results, all new orders ack
[2017-09-29] MEDS ORDERED: POTASSIUM PHOSPHATE MM 15 MMOL in IV D5W 250 ML IV SCH (11:00)
[2017-09-29] MEDS: GLYTROL 1,000 ML BAG GT PRN (11:32)
[2017-09-29] MEDS: IV NS 0.9% 250 ML IV PRN (11:33)
--- NOTE | 2017-09-29 13:04 | NUR ---
icu note clinton Ceron called, blood culture report changed to gram positive cocci in clusters, aware
[2017-09-29] MEDS: VANCOMYCIN 1 GM in IV D5W 250 ML IV SCH (18:15)
--- NOTE | 2017-09-29 19:30 | NUR ---
TOOL MARKER: RECEIVED ORALLY INTUBATED PT AND TOLERATING VENT SETTINGS ORDERED. 02 SAT ABOVE 96%. OPENS EYES, UNABLE TO TRACK OR FOLLOW COMMANDS. NO EVIDENCE OF DISCOMFORT SUCH FACIAL GRIMACE. SR ON FOCUSER. RAÚL PICC PATENT AND INTACT INFUSING NS TKO WT NO S/S OF COMPLICATIONS. TOLERATING GTF WT NO RESIDUAL. F/C PATENT AND INTACT DRAINING YELLOW URINE TO GRAVITY. HOB AT 35 DEGREES. SEIZURE AND SAFETY PRECAUTION NOTED.
[2017-09-29] MEDS: ATORVASTATIN 10 MG TABLET GT SCH (21:12)
[2017-09-29] MEDS: TAMSULOSIN 0.4 MG CAP.SR.24H GT SCH (21:12)
[2017-09-29] MEDS: TERAZOSIN HCL 1 MG CAPSULE GT SCH (21:13)
[2017-09-29] MEDS: LATANOPROST EYE DROP 0.005% 2.5 ML BOTTLE EACHEYE SCH (21:24)
[2017-09-29] MEDS: INSULIN DETEMIR 100 UNIT/ML CARTRIDGE SQ SCH (21:36)
[2017-09-30] VITALS (36 sets, daily range): BP systolic 103–155; BP diastolic 58–87
[2017-09-30] MEDS: PIPERACILLIN /TAZOBACTAM 3.375 G in IV D5W 50 ML IV SCH ×4 (00:26→18:03)
[2017-09-30] MEDS: BLOOD SUGAR DIAGNOSTIC 1 EACH STRIP IN SCH ×4 (00:28→18:03)
[2017-09-30] MEDS: INSULIN REGULAR, HUMAN 100 UNIT/ML 3 ML VIAL SQ PRN ×4 (00:29→18:43)
--- NOTE | 2017-09-30 00:30 | NUR ---
PASTE THINNER: BLOOD SUGAR [id number] COVERED WT INSULIN PER SLIDING SCALE. NO ZANDER. VS WNL.
--- NOTE | 2017-09-30 04:00 | NUR ---
PATIENT FINANCIAL REPRESENTATIVE: BED BATH GIVEN AND TOLERATED FAIRLY. ALL LINENS CHANGED.
[2017-09-30 05:14] LABS: CALCIUM, SERUM 8.8 mg/dL (8.5-10.1); CREATININE 0.9 mg/dL (0.6-1.3); POTASSIUM 3.7 mmol/L (3.5-5.1)
[2017-09-30] MEDS: VANCOMYCIN 1 GM in IV D5W 250 ML IV SCH (06:07)
[2017-09-30] MEDS: GLYTROL 1,000 ML BAG GT PRN ×2 (06:23→15:47)
--- NOTE | 2017-09-30 06:30 | NUR ---
NEWSPAPER PUBLISHER: VS WITHIN HIS BASELINE. NOTED WT MODERATE TO LARGE AMT. OF ORAL BRAVO THIN SECRETIONS. SUCTIONED AND TOLERATED WELL.
--- NOTE | 2017-09-30 07:59 | NUR ---
RT PT RECEIVED ORALLY INTUBATED WITH A 7.5 ETT SECURED AT 24CM AT THE LIP LINE, PT IS ON THE VENT. VENT ALARMS ARE SET AND AUDIBLE WITH BVM BY BEDSIDE. HUMAN RESOURCE INTERN CUFF PRESSURE NOTED. VENT IS PLUGGED INTO RED OUTLET. NO RESPIRATORY DISTRESS NOTED AT THIS TIME, WILL CONTINUE TO MONITOR. Addendum: 09/30/17 at 1723 by ABDELRAHMAN POOLE RT Amended: Links added.
[2017-09-30] MEDS: LEVETIRACETAM SOL (5 ML) 100 MG/ML UDC GT SCH ×2 (08:17→21:17)
[2017-09-30] MEDS: PHENYTOIN SUSP UDC 100 MG/4 ML UDC GT SCH ×2 (08:17→16:21)
[2017-09-30] MEDS: ASPIRIN 81 MG TAB.CHEW GT SCH (08:19)
[2017-09-30] MEDS: ASCORBIC ACID 500 MG TABLET GT SCH (08:19)
[2017-09-30] MEDS: PANTOPRAZOLE 40 MG/PACK PACK GT SCH (08:19)
[2017-09-30] MEDS: MULTIVIT, IRON, MIN NO. 8, FA 1 TAB GT SCH (08:19)
[2017-09-30] MEDS: LACTOBACILLUS RHAMNOSUS GG 1 EACH CAP.SPRINK GT SCH ×2 (08:19→16:21)
[2017-09-30] MEDS: PROSOURCE / PROSTAT (PYXIS) 30 ML UDC GT SCH ×3 (08:20→15:47)
[2017-09-30] MEDS: ENOXAPARIN SODIUM 40 MG/0.4 ML DISP.SYRIN SQ SCH (08:20)
[2017-09-30] MEDS: Z GUARD REMEDY 4 OZ OINT TP SCH ×2 (08:21→21:19)
[2017-09-30] MEDS: TIMOLOL MAL/DORZOLAM HCL OPHTH 10 ML BOTTLE EACHEYE SCH ×2 (08:22→16:22)
[2017-09-30] MEDS: BRIMONIDINE TARTRATE OPHT SOLN 5 ML BOTTLE EACHEYE SCH ×3 (08:22→16:23)
[2017-09-30] MEDS: POLYVINYL ALCOHOL 15 ML BOTTLE OP SCH ×3 (08:22→16:22)
[2017-09-30] MEDS: IV NS 0.9% 250 ML IV PRN (15:47)
--- NOTE | 2017-09-30 17:00 | NUR ---
ICU/RN PM CARE PROVIDED.DUE MEDS ARE GIVEN ORDERED.V/S STABLE AFEBRILE.PT IS OFF PROPOFOL.VEGETATIVE STATE.RESPONSIVE ON PAIN STIMULATION .SUCTION PROVIDED.REPOSITION FOR COMFORT.CONTINUE MONITORING.
[2017-09-30] MEDS: VANCOMYCIN 1.25 GM in IV D5W 500 ML IV SCH (18:04)
--- NOTE | 2017-09-30 19:20 | NUR ---
RN INITIAL NOTE RECEIVED PT IN NO ACUTE DISTRESS IN BED. PT IS OBTUNDED AND RESPONDS TO PAIN STIMULI. PT IS INTUBATED WITH 7.5 ETTUBE @ 24CM AT THE LIP. PT IS ON MECHANICAL VENT WITH VENT SETTINGS @ 16, 550, 40%, 5. PT HAS GTUBE THAT IS CLEAN DRY INTACT AND PATENT WITH GLYTROL @ 70ML/HR AND TOLERATING WELL WITH 0 RESIDUAL. PT HAS F/C THAT IS CLEAN DRY INTACT AND PATENT WITH YELLOW URINE DRAINING. PT HAS PHIL PICC THAT IS CLEAN DRY INTACT AND PATENT WITH NS @ TKO. BED IN LOW LOCK POSITION WITH RIALS UP X 2. CALL LIGHT WITHIN REACH AND ALL SAFETY MEASURES ENSURED AND CARRIED OUT. WILL CONTINUE TO MONITOR PT.
[2017-09-30] MEDS: TAMSULOSIN 0.4 MG CAP.SR.24H GT SCH (21:17)
[2017-09-30] MEDS: TERAZOSIN HCL 1 MG CAPSULE GT SCH (21:18)
[2017-09-30] MEDS: ATORVASTATIN 10 MG TABLET GT SCH (21:18)
[2017-09-30] MEDS: LATANOPROST EYE DROP 0.005% 2.5 ML BOTTLE EACHEYE SCH (21:20)
[2017-09-30] MEDS: INSULIN DETEMIR 100 UNIT/ML CARTRIDGE SQ SCH (21:27)
[2017-10-01] VITALS (39 sets, daily range): BP systolic 90–141; BP diastolic 52–86
[2017-10-01] MEDS: BLOOD SUGAR DIAGNOSTIC 1 EACH STRIP IN SCH ×5 (00:34→23:19)
[2017-10-01] MEDS: PIPERACILLIN /TAZOBACTAM 3.375 G in IV D5W 50 ML IV SCH ×5 (00:36→23:21)
[2017-10-01] MEDS: INSULIN REGULAR, HUMAN 100 UNIT/ML 3 ML VIAL SQ PRN ×5 (00:36→23:19)
[2017-10-01 05:09] LABS: CALCIUM, SERUM 8.7 mg/dL (8.5-10.1); POTASSIUM 3.6 mmol/L (3.5-5.1)
[2017-10-01] MEDS: VANCOMYCIN 1.25 GM in IV D5W 500 ML IV SCH (05:43)
--- NOTE | 2017-10-01 05:43 | NUR ---
VANCO TROUGH IS 27. WILL HOLD VANCOMYCIN FOR 0600.
--- NOTE | 2017-10-01 06:37 | NUR ---
RN CLOSING NOTE PT REMAINS IN NO ACUTE DISTRESS IN BED. PT DID NOT HAVE ANY SIGNIFICANT CHANGE IN CONDITION DURING SHIFT. ALL NEEDS MET, ALL ORDERS CARRIED OUT. WILL ENDORSE CARE TO AM RN FOR CONTINUITY OF CARE.
--- NOTE | 2017-10-01 07:05 | NUR ---
RN NOTE RECEIVED PT ON BED , OBTUNDED AND RESPONDS TO PAIN AND STIMULI, OPENS EYES AT TIMES , INTUBATED WITH 7.5 ET TUBE @ 24CM AT THE LIP. VENT DEPENDENT, WITH VENT SETTINGS AC 16, TV 550, FIO2 40%,PEEP 0, GLYTROL AT 70 CC/HR RUNNING VIA G TUBE, NO RESIDUAL NOTED, JACOBSEN DRAINING TO GRAVITY WITH YELLOW URINE , L UA PICC LINE SITE , CDI, BED LOCKED AND IN LOWEST POSITION ,SR UP X 3, CALL LIGHT WITHIN EASY REACH AND ALL SAFETY MEASURES ENSURED AND CARRIED OUT. WILL CONTINUE TO MONITOR PT CLSOELY
[2017-10-01] MEDS: BRIMONIDINE TARTRATE OPHT SOLN 5 ML BOTTLE EACHEYE SCH ×3 (08:03→16:31)
[2017-10-01] MEDS: TIMOLOL MAL/DORZOLAM HCL OPHTH 10 ML BOTTLE EACHEYE SCH ×2 (08:04→16:32)
[2017-10-01] MEDS: PANTOPRAZOLE 40 MG/PACK PACK GT SCH (08:05)
[2017-10-01] MEDS: PHENYTOIN SUSP UDC 100 MG/4 ML UDC GT SCH ×2 (08:05→16:33)
[2017-10-01] MEDS: LEVETIRACETAM SOL (5 ML) 100 MG/ML UDC GT SCH ×2 (08:05→21:13)
[2017-10-01] MEDS: LACTOBACILLUS RHAMNOSUS GG 1 EACH CAP.SPRINK GT SCH ×2 (08:06→16:33)
[2017-10-01] MEDS: ASCORBIC ACID 500 MG TABLET GT SCH (08:06)
[2017-10-01] MEDS: ASPIRIN 81 MG TAB.CHEW GT SCH (08:06)
[2017-10-01] MEDS: ENOXAPARIN SODIUM 40 MG/0.4 ML DISP.SYRIN SQ SCH (08:06)
[2017-10-01] MEDS: MULTIVIT, IRON, MIN NO. 8, FA 1 TAB GT SCH (08:06)
[2017-10-01] MEDS: POLYVINYL ALCOHOL 15 ML BOTTLE OP SCH ×3 (08:09→16:32)
[2017-10-01] MEDS: Z GUARD REMEDY 4 OZ OINT TP SCH ×2 (08:09→21:14)
[2017-10-01] MEDS: PROSOURCE / PROSTAT (PYXIS) 30 ML UDC GT SCH ×3 (08:10→16:33)
--- NOTE | 2017-10-01 08:40 | NUR ---
WOUND CARE CONSULT: PT PRESENTS WITH STAGE 4 ULCER TO SACRUM, PRESENT ON ADMISSION. PT TO BE FOLLOWED BY SURGICAL TEAM. PT ON KANDACE ISOFLEX LOW AIRLOSS BED. ALL SKIN PROTECTION MEASURES IN PLACE AND DISCUSSED WITH NURSING STAFF. 3+ PITTING EDEMA NOTED TO BILATERAL FEET. WILL SEE PRN. HARVEY IN AGREEMENT WITH PLAN OF CARE. Addendum: 10/01/17 at 0841 by HELENA FLORES WNDNU Amended: Links added.
[2017-10-01] MEDS: HYDROGEL DRESSING 90 GM TUBE TP SCH (09:00)
[2017-10-01] MEDS ORDERED: HYDROGEL DRESSING 90 GM TUBE TP PRN (09:00)
--- NOTE | 2017-10-01 11:50 | NUR ---
RN NOTES VSS STABLE, ORAL SUCTIONING DONE , TOLERATING TF WELL, TF INCREASE TO 65 CC/HR PER PIT SLAGMAN AND MD ORDER .
--- NOTE | 2017-10-01 15:45 | NUR ---
RN NOTES VSS STABLE , JACOBSEN DRAINING TO GRAVITY WITH YELLOW CLEAR URIN . SR UP x3, CONTINUE TO MONITOR .
--- NOTE | 2017-10-01 18:19 | NUR ---
RN NOTES PT TOLERATING VENT SETTING WELL, NO DISTRESS NOTED, ON TELE SR IN 60'S , NO TF RESIDUAL NOTED, JACOBSEN DRAINING TO GRAVITY WITH YELLOW CLEAR URIN . SR UP x3, CALL LIGHT WITHIN EASY REACH , WILL ENDORSE TO TOOL CRIB MANAGER NURSE FOR ZANDER .
--- NOTE | 2017-10-01 19:21 | NUR ---
ICU/PERMASTONE INSTALLER RECEIVED PT ON BED , OBTUNDED AROUSABLE TO PAINFUL STIMULI, OPENS EYES. INTUBATED WITH 7.5 ET TUBE @ 24CM AT THE LIP. VENT SETTINGS AC 16, TV 550, FIO2 40%,PEEP 0, GLYTROL AT 65 mL/HR RUNNING VIA G TUBE, NO RESIDUAL NOTED. JACOBSEN DRAINING TO GRAVITY WITH YELLOW URINE. LEFT UA PICC LINE SITE CDI, BED LOCKED AND IN LOWEST POSITION ,SIDE RAILS UP X 3, CALL LIGHT WITHIN REACH AND ALL SAFETY MEASURES ENSURED AND CARRIED OUT. WILL CONTINUE TO MONITOR PT CLOSELY
[2017-10-01] MEDS: VANCOMYCIN 1 GM in IV D5W 250 ML IV SCH (19:59)
[2017-10-01] MEDS: TERAZOSIN HCL 1 MG CAPSULE GT SCH (21:13)
[2017-10-01] MEDS: ATORVASTATIN 10 MG TABLET GT SCH (21:13)
[2017-10-01] MEDS: TAMSULOSIN 0.4 MG CAP.SR.24H GT SCH (21:13)
[2017-10-01] MEDS: LATANOPROST EYE DROP 0.005% 2.5 ML BOTTLE EACHEYE SCH (21:14)
[2017-10-01] MEDS ORDERED: HYDROMORPHONE INJ 2 MG/ML DISP.SYRIN ONE (22:40)
--- NOTE | 2017-10-01 22:47 | NUR ---
MED NOTE: PT S/P SACRAL DEBRIDEMENT. VS CHANGES. PAIN MEDS ADMINISTERED. WILL CONTINUE TO MONITOR.
[2017-10-01] MEDS ORDERED: HYDROMORPHONE 1 MG/1 ML DISP.SYRIN IV PRN (23:00)
[2017-10-01] MEDS: INSULIN DETEMIR 100 UNIT/ML CARTRIDGE SQ SCH (23:17)
[2017-10-02] VITALS (51 sets, daily range): BP systolic 92–173; BP diastolic 50–97
[2017-10-02] MEDS: GLYTROL 1,000 ML BAG GT PRN ×2 (01:04→17:09)
[2017-10-02 04:54] LABS: BASOPHILS # (AUTO) 0.1 /CMM (0.0-0.2); BASOPHILS % (AUTO) 0.6 % (0.0-2.0); EOSINOPHILS # (AUTO) 1.4 /CMM (0.0-0.7); HEMATOCRIT 27 % (39-51); HEMOGLOBIN 9.2 g/dL (13.5-17.5); LYMPHOCYTES # (AUTO) 2.3 /CMM (0.8-4.8); LYMPHOCYTES % (AUTO) 20.5 % (20.0-44.0); MEAN CORPUSCULAR HEMOGLOBIN 32 PG (26.0-33.0); MEAN CORPUSCULAR HGB CONC 34 g/dl (31.0-36.0); MEAN CORPUSCULAR VOLUME 93 fL (80-96); MONOCYTES # (AUTO) 0.9 /CMM (0.1-1.30); MONOCYTES % (AUTO) 8.5 % (2.0-12.0); NEUTROPHILS # (AUTO) 6.4 /CMM (1.8-8.9); NEUTROPHILS % (AUTO) 57.4 % (43.0-81.0); PLATELET COUNT (AUTO) 326 /CMM (150-450); RED BLOOD CELL COUNT(AUTO) 2.89 MIL/uL (4.5-6.0); WHITE BLOOD COUNT (AUTO) 11.1 K/uL (4.3-11.0)
[2017-10-02 05:02] LABS: CALCIUM, SERUM 8.9 mg/dL (8.5-10.1); MAGNESIUM 1.8 mg/dL (1.8-2.4); POTASSIUM 3.7 mmol/L (3.5-5.1)
[2017-10-02] MEDS: PIPERACILLIN /TAZOBACTAM 3.375 G in IV D5W 50 ML IV SCH ×3 (05:22→17:06)
[2017-10-02] MEDS: BLOOD SUGAR DIAGNOSTIC 1 EACH STRIP IN SCH ×3 (05:23→17:06)
[2017-10-02] MEDS: IV NS 0.9% 250 ML IV PRN (05:23)
[2017-10-02] MEDS: INSULIN REGULAR, HUMAN 100 UNIT/ML 3 ML VIAL SQ PRN ×3 (05:26→19:03)
[2017-10-02] MEDS ORDERED: HYDROMORPHONE INJ 2 MG/ML DISP.SYRIN IV PRN (07:30)
--- NOTE | 2017-10-02 08:00 | NUR ---
RN NOTES RECEIVED PT ON BED, OPENS EYES DOESNT FOLLOW COMMANDS. INTUBATED WITH 7.5 ET TUBE @ 24CM AT THE LIP. VENT SETTINGS AC 16, TV 550, FIO2 40%,PEEP 0, PT FOR WEANING TO SIMV MODE TODAY. ONGOING GTF GLYTROL AT 65 mL/HRNO RESIDUAL NOTED. JACOBSEN DRAINING TO GRAVITY WITH YELLOW URINE. PHIL PICC LINE SITE CDI, BED LOCKED AND IN LOWEST POSITION ,SIDE RAILS UP X 3, CALL LIGHT WITHIN REACH AND ALL SAFETY MEASURES ENSURED AND CARRIED OUT. WILL CONTINUE TO MONITOR PT CLOSELY
--- NOTE | 2017-10-02 08:42 | NUR ---
RN NOTES RT AT BEDSIDE, CHANGED VENT SETTINGS FROM AC TO SIMV MODE ORDERED BY DR DURAN. PT OFF SEDATION, RESPONSIVE TO VERBAL STIMULI. OPENS EYES. DOESNT FOLLOW COMMAND, ABG AFTER ONE HOUR. WILL MONITOR FOR ANY RESPIRATORY DISTRESS.
--- NOTE | 2017-10-02 08:42 | NUR ---
VENT CHANGES ORDERED SIMV 4, PS 15 +5 PEEP 40% ABG AFTER 1HOUR PT MARGRET WELL HR 68, RR 16 BP 148/79 SP02 95% NO RESP DISTRESS NOTED, PT SLIGHTLY LETHARGIC, BUT OPENS EYES. SX COPIOUS THICK PALE YELLOW SECRETIONS, WILL CONTINUE TO MONITOR Addendum: 10/02/17 at 0859 by BLANCA SAAVEDRA RT Amended: Links added.
[2017-10-02] MEDS: HYDROGEL DRESSING 90 GM TUBE TP SCH (09:09)
[2017-10-02] MEDS: ENOXAPARIN SODIUM 40 MG/0.4 ML DISP.SYRIN SQ SCH (09:09)
[2017-10-02] MEDS: VANCOMYCIN 1 GM in IV D5W 250 ML IV SCH ×2 (09:10→20:05)
[2017-10-02] MEDS: PHENYTOIN SUSP UDC 100 MG/4 ML UDC GT SCH ×2 (09:11→17:06)
[2017-10-02] MEDS: LEVETIRACETAM SOL (5 ML) 100 MG/ML UDC GT SCH ×2 (09:11→20:04)
[2017-10-02] MEDS: PANTOPRAZOLE 40 MG/PACK PACK GT SCH (09:12)
[2017-10-02] MEDS: LACTOBACILLUS RHAMNOSUS GG 1 EACH CAP.SPRINK GT SCH ×2 (09:12→17:06)
[2017-10-02] MEDS: ASPIRIN 81 MG TAB.CHEW GT SCH (09:12)
[2017-10-02] MEDS: ASCORBIC ACID 500 MG TABLET GT SCH (09:12)
[2017-10-02] MEDS: MULTIVIT, IRON, MIN NO. 8, FA 1 TAB GT SCH (09:12)
[2017-10-02] MEDS: Z GUARD REMEDY 4 OZ OINT TP SCH ×2 (09:14→21:44)
[2017-10-02] MEDS: POLYVINYL ALCOHOL 15 ML BOTTLE OP SCH ×3 (09:15→17:07)
[2017-10-02] MEDS: TIMOLOL MAL/DORZOLAM HCL OPHTH 10 ML BOTTLE EACHEYE SCH ×2 (09:15→17:08)
[2017-10-02] MEDS: BRIMONIDINE TARTRATE OPHT SOLN 5 ML BOTTLE EACHEYE SCH ×3 (09:16→17:07)
[2017-10-02] MEDS: PROSOURCE / PROSTAT (PYXIS) 30 ML UDC GT SCH ×3 (09:47→17:07)
--- NOTE | 2017-10-02 09:50 | NUR ---
RT VENT SETTING MARGRET WELL ORDERED, LEFT PT ON SIMV PER DR DURAN TITRATED FI02 35% Addendum: 10/02/17 at 1018 by BLANCA SAAVEDRA RT Amended: Links added.
[2017-10-02 10:07] LABS: ABG BASE EXCESS -1.3 mmol/L; ABG OXYGEN SATURATION 97.7 % (92.0-98.5); ABG PCO2 33.6 mmHg (35.0-45.0); ABG PH 7.441 (7.350-7.450); ABG PO2 116.1 mmHg (75.0-100.0); AaDO2 130.5 mmHg; COHb 0.3 % (0.5-1.5); MetHb 0.5 % (0.0-1.5); O2Hb 96.9 % (94.0-97.0); PEEP,BG 5 cm H2O; SITE, ABG Left Radial; VENT MODE, BG SIMV PS15 40% O2
--- NOTE | 2017-10-02 10:23 | NUR ---
RN NOTES ABD DONE, RESULT RELAYED TO DR DURAN. PER MD KEEP PT ON SIMV MODE, TITRATE FIO2 TO 35%. IF PT DEVELOPS DISTRESS, PUT PT BACK TO AC MODE.
[2017-10-02] MEDS: CARVEDILOL 3.125 MG TABLET GT SCH ×2 (13:21→20:05)
--- NOTE | 2017-10-02 19:30 | NUR ---
RN INITIAL NOTES RECEIVED PT ASLEEP ON BED, EASILY AROUSABLE TO NAME AND TOUCH. OPENS EYES ONLY, UNABLE TO FOLLOW COMMANDS. NO SEDATION. INTUBATED AND ON VENT SIMV RATE4, TV 550, FIO2 35%, P5, ETT 7.5/24@LIP, SATURATING WELL, NO S/S OF RESP DISTRESS. CURRENTLY SR ON THE MONITOR, HR 60'S. JACOBSEN CATH IN PLACE. GTUBE FEEDING OF GLYTROL 65MLS/HR, NO RESIDUALS, TOLERATING WELL. RIGHT UPPER ARM PICC TKO, FLUSHED AND PATENT, NO S/S OF INFILTRATION/INFECTION, DRESSING CDI. BED LOW AND LOCKED, SIDERAILS UP, BED ALARM ON. WILL MONITOR
[2017-10-02] MEDS: ATORVASTATIN 10 MG TABLET GT SCH (21:45)
[2017-10-02] MEDS: TAMSULOSIN 0.4 MG CAP.SR.24H GT SCH (21:45)
[2017-10-02] MEDS: LATANOPROST EYE DROP 0.005% 2.5 ML BOTTLE EACHEYE SCH (21:45)
[2017-10-02] MEDS: TERAZOSIN HCL 1 MG CAPSULE GT SCH (21:45)
[2017-10-02] MEDS: INSULIN DETEMIR 100 UNIT/ML CARTRIDGE SQ SCH (21:46)
[2017-10-03] VITALS (54 sets, daily range): BP systolic 92–166; BP diastolic 50–96
[2017-10-03] MEDS: BLOOD SUGAR DIAGNOSTIC 1 EACH STRIP IN SCH ×5 (00:05→22:54)
[2017-10-03] MEDS: INSULIN REGULAR, HUMAN 100 UNIT/ML 3 ML VIAL SQ PRN ×5 (00:06→22:59)
[2017-10-03] MEDS: PIPERACILLIN /TAZOBACTAM 3.375 G in IV D5W 50 ML IV SCH ×4 (00:07→17:11)
[2017-10-03 04:41] LABS: BASOPHILS % (AUTO) 0.4 % (0.0-2.0); EOSINOPHILS # (AUTO) 1.3 /CMM (0.0-0.7); EOSINOPHILS % (AUTO) 13.5 % (0.0-6.0); HEMATOCRIT 25 % (39-51); HEMOGLOBIN 8.4 g/dL (13.5-17.5); LYMPHOCYTES # (AUTO) 1.9 /CMM (0.8-4.8); LYMPHOCYTES % (AUTO) 18.9 % (20.0-44.0); MEAN CORPUSCULAR HEMOGLOBIN 32 PG (26.0-33.0); MEAN CORPUSCULAR HGB CONC 34 g/dl (31.0-36.0); MEAN CORPUSCULAR VOLUME 94 fL (80-96); MONOCYTES # (AUTO) 0.8 /CMM (0.1-1.30); MONOCYTES % (AUTO) 8.5 % (2.0-12.0); NEUTROPHILS # (AUTO) 5.8 /CMM (1.8-8.9); NEUTROPHILS % (AUTO) 58.7 % (43.0-81.0); PLATELET COUNT (AUTO) 329 /CMM (150-450); RDW COEFFICIENT OF VARIATION 13.8 (11.5-15.0); RED BLOOD CELL COUNT(AUTO) 2.66 MIL/uL (4.5-6.0); WHITE BLOOD COUNT (AUTO) 9.8 K/uL (4.3-11.0)
[2017-10-03 05:03] LABS: CALCIUM, SERUM 8.9 mg/dL (8.5-10.1); MAGNESIUM 1.9 mg/dL (1.8-2.4); PHOSPHORUS 3.1 mg/dL (2.5-4.9); POTASSIUM 3.8 mmol/L (3.5-5.1)
--- NOTE | 2017-10-03 06:20 | NUR ---
RN CLOSING NOTES PT REMAINS STABLE OF THE MOMENT. ALL DUE MEDS GIVEN, AM CARE PROVIDED. WILL ENDORSE CONTINUITY OF CARE TO AM RN
--- NOTE | 2017-10-03 07:30 | NUR ---
RN NOTES RECEIVED PT IN BED, OPENS EYES DOESNT FOLLOW COMMANDS. INTUBATED WITH 7.5 ET TUBE @ 24CM AT THE LIP. VENT SETTINGS SIMV 4, TV 550, FIO2 35%,PEEP 5, PT FOR WEANING TO COOL AEROSOL TODAY. ONGOING GTF GLYTROL AT 65 mL/HR NO RESIDUAL NOTED. JACOBSEN DRAINING TO GRAVITY WITH YELLOW URINE OUTPUT. PHIL PICC LINE SITE CDI, BED LOCKED AND IN LOWEST POSITION ,SIDE RAILS UP X 3, CALL LIGHT WITHIN REACH AND ALL SAFETY MEASURES ENSURED AND CARRIED OUT. WILL CONTINUE TO MONITOR PT CLOSELY
[2017-10-03] MEDS: VANCOMYCIN 1 GM in IV D5W 250 ML IV SCH ×2 (08:00→17:11)
--- NOTE | 2017-10-03 08:00 | NUR ---
RN NOTES VANCO TROUGH 24. VANCO DOSE FOR 0800 HELD, PHARMACIST AWARE
[2017-10-03] MEDS: ASPIRIN 81 MG TAB.CHEW GT SCH (08:31)
[2017-10-03] MEDS: ASCORBIC ACID 500 MG TABLET GT SCH (08:31)
[2017-10-03] MEDS: LACTOBACILLUS RHAMNOSUS GG 1 EACH CAP.SPRINK GT SCH ×2 (08:31→17:11)
[2017-10-03] MEDS: CARVEDILOL 3.125 MG TABLET GT SCH ×2 (08:31→21:00)
[2017-10-03] MEDS: PANTOPRAZOLE 40 MG/PACK PACK GT SCH (08:31)
[2017-10-03] MEDS: LEVETIRACETAM SOL (5 ML) 100 MG/ML UDC GT SCH ×2 (08:32→21:27)
[2017-10-03] MEDS: PHENYTOIN SUSP UDC 100 MG/4 ML UDC GT SCH ×2 (08:32→17:11)
[2017-10-03] MEDS: MULTIVIT, IRON, MIN NO. 8, FA 1 TAB GT SCH (08:32)
[2017-10-03] MEDS: BRIMONIDINE TARTRATE OPHT SOLN 5 ML BOTTLE EACHEYE SCH ×3 (08:33→17:13)
[2017-10-03] MEDS: TIMOLOL MAL/DORZOLAM HCL OPHTH 10 ML BOTTLE EACHEYE SCH ×2 (08:33→17:15)
[2017-10-03] MEDS: POLYVINYL ALCOHOL 15 ML BOTTLE OP SCH ×3 (08:34→17:14)
[2017-10-03] MEDS: HYDROGEL DRESSING 90 GM TUBE TP SCH (08:35)
[2017-10-03] MEDS: PROSOURCE / PROSTAT (PYXIS) 30 ML UDC GT SCH ×3 (08:35→17:12)
[2017-10-03] MEDS: ENOXAPARIN SODIUM 40 MG/0.4 ML DISP.SYRIN SQ SCH (08:40)
[2017-10-03] MEDS: Z GUARD REMEDY 4 OZ OINT TP SCH ×2 (08:40→21:27)
[2017-10-03] MEDS: GLYTROL 1,000 ML BAG GT PRN (08:40)
--- NOTE | 2017-10-03 08:40 | NUR ---
RN NOTES RT TROY AT BEDSIDE. SIMV MODE CHANGED TO COOL AEROSOL 8LPM 35%FIO2 PER DR DURAN ORDER. VS STABLE, NO RESPIRATORY DISTRESS NOTED, PT AFEBRILE. PT OPENS EYES UNABLE TO FOLLOW COMMANDS. WILL MONITOR CLOSELY.
--- NOTE | 2017-10-03 08:53 | NUR ---
RT PT TAKEN OFF VENT AND PLACED ON COOL AEROSOL 35% AT 8LPM PER DR. RENEE JEREZ. TOLERATING WELL WITH NO RESPIRATORY DISTRESS AT THIS TIME. RN NOTIFIED OF CHANGE. WILL CONTINUE TO MONITOR. Addendum: 10/03/17 at 0928 by ABDELRAHMAN POOLE RT Amended: Links added.
--- NOTE | 2017-10-03 09:05 | NUR ---
RN NOTES DR DURAN AT BEDSIDE. PT WAS SEEN AND EVALUATED AT BEDSIDE. DISCUSSED LABS, CURRENT VS. PT PLACED ON COOL AEROSOL AT 0842, NO SIGNS OF DISTRESS, PT OPENS EYES, DOESNT FOLLOW COMMANDS. PER DR DURAN CHECK ABG AFTER ONE HOUR AND HE WILL TALK TO FAMILY FOR POSSIBLE TRACHE PLACEMENT.
[2017-10-03 10:20] LABS: ABG BASE EXCESS 0.6 mmol/L; ABG OXYGEN SATURATION 94.5 % (92.0-98.5); ABG PH 7.432 (7.350-7.450); ABG PO2 74.9 mmHg (75.0-100.0); AaDO2 130.5 mmHg; COHb 0.3 % (0.5-1.5); MetHb 0.3 % (0.0-1.5); O2Hb 93.9 % (94.0-97.0); SITE, ABG Right Radial; VENT MODE, BG COOL AEROSOL 35%
--- NOTE | 2017-10-03 18:19 | NUR ---
RN NOTES PT NOTED WITH DISTRESS AFTER PM CARE. SBP OF 166/75 RR:45 HR105, NOTED WITH LABORED BREATHING. ON COOL AEROSOL FIO2 35% 8LPM. DR DURAN NOTIFIED, PER MD TO PUT BACK TO AC MODE. RT AT BEDSIDE, PLACED PT ON FOLLOWING SETTINGS AC 16 TV 550 FIO2 60% PEEP 5. WILL MONITOR CLOSELY
--- NOTE | 2017-10-03 18:19 | NUR ---
RT PT FAILED T-PIECE, PT BECAME TACHYPNEIC WITH INCREASED HR. PT PLACED BACK ON AC MODE PER DR. RENEE ROMERO. WILL CONTINUE TO MONITOR. Addendum: 10/03/17 at 1826 by ABDELRAHMAN POOLE RT Amended: Links added.
[2017-10-03] MEDS: CEFEPIME 1 GM in IV D5W 50 ML IV SCH (19:45)
[2017-10-03] MEDS ORDERED: CEFEPIME 1 GM VIAL IM SCH (21:00)
[2017-10-03] MEDS: TAMSULOSIN 0.4 MG CAP.SR.24H GT SCH (21:26)
[2017-10-03] MEDS: TERAZOSIN HCL 1 MG CAPSULE GT SCH (21:27)
[2017-10-03] MEDS: ATORVASTATIN 10 MG TABLET GT SCH (21:28)
[2017-10-03] MEDS: LATANOPROST EYE DROP 0.005% 2.5 ML BOTTLE EACHEYE SCH (21:28)
[2017-10-03] MEDS: INSULIN DETEMIR 100 UNIT/ML CARTRIDGE SQ SCH (22:55)
--- NOTE | 2017-10-03 23:30 | NUR ---
NASCAR DRIVER INITIAL NOTE RECEIVED PT FROM ZACHARY UMANZOR. PT IN BED. INTUBATED AND TOLERATING CURRENT VENT SETTINGS. LUNG SOUNDS RHONCHI. BOWEL SOUNDS PRESENT. GT PATENT AND INTACT, NO RESIDUAL AT THIS TIME. JACOBSEN INTACT AND DRAINING URINE. PULSES PRESENT. IV PATENT AND INTACT. REPOSITIONED FOR COMFORT. WILL CONTINUE TO MONITOR.
[2017-10-04] VITALS (53 sets, daily range): BP systolic 101–159; BP diastolic 58–110
[2017-10-04] MEDS: GLYTROL 1,000 ML BAG GT PRN ×2 (00:07→16:55)
--- NOTE | 2017-10-04 02:30 | NUR ---
COUNTER WAITRESS/WAITER PT IN BED. INTUBATED TOLERATING CURRENT VENT SETTINGS. BED BATH PROVIDED. REPOSITIONED FOR COMFORT. WILL CONTINUE TO MONITOR.
[2017-10-04 04:37] LABS: BASOPHILS % (AUTO) 0.4 % (0.0-2.0); EOSINOPHILS # (AUTO) 1.1 /CMM (0.0-0.7); EOSINOPHILS % (AUTO) 9.2 % (0.0-6.0); HEMATOCRIT 28 % (39-51); HEMOGLOBIN 9.3 g/dL (13.5-17.5); LYMPHOCYTES # (AUTO) 1.6 /CMM (0.8-4.8); LYMPHOCYTES % (AUTO) 13.4 % (20.0-44.0); MEAN CORPUSCULAR HEMOGLOBIN 31 PG (26.0-33.0); MEAN CORPUSCULAR HGB CONC 33 g/dl (31.0-36.0); MEAN CORPUSCULAR VOLUME 94 fL (80-96); MONOCYTES # (AUTO) 0.7 /CMM (0.1-1.30); MONOCYTES % (AUTO) 5.9 % (2.0-12.0); NEUTROPHILS # (AUTO) 8.6 /CMM (1.8-8.9); NEUTROPHILS % (AUTO) 71.1 % (43.0-81.0); PLATELET COUNT (AUTO) 325 /CMM (150-450); RDW COEFFICIENT OF VARIATION 14.1 (11.5-15.0); WHITE BLOOD COUNT (AUTO) 12.2 K/uL (4.3-11.0)
[2017-10-04 04:49] LABS: CALCIUM, SERUM 8.7 mg/dL (8.5-10.1); MAGNESIUM 1.8 mg/dL (1.8-2.4); PHOSPHORUS 2.7 mg/dL (2.5-4.9)
[2017-10-04 04:54] LABS: POTASSIUM 3.9 mmol/L (3.5-5.1)
[2017-10-04] MEDS: BLOOD SUGAR DIAGNOSTIC 1 EACH STRIP IN SCH ×4 (06:02→23:19)
[2017-10-04] MEDS: INSULIN REGULAR, HUMAN 100 UNIT/ML 3 ML VIAL SQ PRN ×4 (06:04→23:22)
--- NOTE | 2017-10-04 07:35 | NUR ---
RN NOTES RECEIVED PT IN BED, OPENS EYES DOESN'T FOLLOW COMMANDS. INTUBATED WITH 7.5 ET TUBE, 24CM AT THE LIP. VENT SETTINGS AC 16, TV 550, FIO2 40%,PEEP 5. SUCTIONED FOR AIRWAY CLEARANCE, NOTED WITH LARGE AMOUNT OF THICK SECRETIONS. NO RESP DISTRESS NOTED. ONGOING GTF GLYTROL AT 65 ML/HR NOTED WITH 10 ML RESIDUAL. AJCOBSEN CATH DRAINING TO GRAVITY WITH YELLOW URINE OUTPUT. PHIL PICC LINE SITE CDI, BED LOCKED AND IN LOWEST POSITION, SIDE RAILS UP X 3, CALL LIGHT WITHIN REACH AND ALL SAFETY MEASURES ENSURED AND CARRIED OUT. WILL CONTINUE TO MONITOR PT CLOSELY
[2017-10-04] MEDS: ASCORBIC ACID 500 MG TABLET GT SCH (08:45)
[2017-10-04] MEDS: ASPIRIN 81 MG TAB.CHEW GT SCH (08:45)
[2017-10-04] MEDS: MULTIVIT, IRON, MIN NO. 8, FA 1 TAB GT SCH (08:45)
[2017-10-04] MEDS: LEVETIRACETAM SOL (5 ML) 100 MG/ML UDC GT SCH ×2 (08:45→21:20)
[2017-10-04] MEDS: PANTOPRAZOLE 40 MG/PACK PACK GT SCH (08:45)
[2017-10-04] MEDS: LACTOBACILLUS RHAMNOSUS GG 1 EACH CAP.SPRINK GT SCH ×2 (08:45→17:41)
[2017-10-04] MEDS: PHENYTOIN SUSP UDC 100 MG/4 ML UDC GT SCH ×2 (08:45→17:41)
[2017-10-04] MEDS: TIMOLOL MAL/DORZOLAM HCL OPHTH 10 ML BOTTLE EACHEYE SCH ×2 (08:46→17:42)
[2017-10-04] MEDS: POLYVINYL ALCOHOL 15 ML BOTTLE OP SCH ×3 (08:46→17:41)
[2017-10-04] MEDS: BRIMONIDINE TARTRATE OPHT SOLN 5 ML BOTTLE EACHEYE SCH ×3 (08:46→17:42)
[2017-10-04] MEDS: CARVEDILOL 3.125 MG TABLET GT SCH ×2 (08:49→21:21)
[2017-10-04] MEDS: HYDROGEL DRESSING 90 GM TUBE TP SCH (08:49)
[2017-10-04] MEDS: Z GUARD REMEDY 4 OZ OINT TP SCH ×2 (08:49→21:22)
[2017-10-04] MEDS: PROSOURCE / PROSTAT (PYXIS) 30 ML UDC GT SCH ×3 (08:50→16:55)
[2017-10-04] MEDS: CEFEPIME 1 GM in IV D5W 50 ML IV SCH ×2 (08:51→19:51)
[2017-10-04] MEDS: ENOXAPARIN SODIUM 40 MG/0.4 ML DISP.SYRIN SQ SCH (08:53)
--- NOTE | 2017-10-04 09:15 | NUR ---
RN NOTES DR DURAN AT BEDSIDE, PT WAS SEEN AND EVALUATED. VS STABLE. PT ON AC MODE, AC 16 TV 550 FIO2 40% PEEP OF 5. PER DR DURAN, HE WILL TALK TO THE FAMILY TODAY THIS AFTERNOON TO DISCUSS THE PLAN. HILDA DAUGHTER NOTIFIED AND AGREED TO BE CONTACTED THIS AFTERNOON.
[2017-10-04] MEDS: VANCOMYCIN 1 GM in IV D5W 250 ML IV SCH (12:09)
[2017-10-04] MEDS: HYDROCODONE/APAP 5/325MG 1 EACH TABLET PO PRN (19:50)
--- NOTE | 2017-10-04 20:00 | NUR ---
ICU/POULTRY PICKING MACHINE TENDER RECEIVED PT IN BED, OPENS EYES DOESN'T FOLLOW COMMANDS. 7.5 ET TUBE, 24CM @ LIP. VENT AC 16, TV 550, FIO2 40%,PEEP 5. GTF GLYTROL AT 65 ML/HR. JACOBSEN CATH DRAINING TO GRAVITY WITH YELLOW URINE OUTPUT. PHIL PICC LINE CDI, BED LOCKED AND IN LOWEST POSITION, SIDERAILS UP x3, CALL LIGHT WITHIN REACH. SPOKE WITH DAUGHTER REGARDING PLAN OF CARE. WILL CONTINUE TO MONITOR PT CLOSELY
[2017-10-04] MEDS: TAMSULOSIN 0.4 MG CAP.SR.24H GT SCH (21:21)
[2017-10-04] MEDS: TERAZOSIN HCL 1 MG CAPSULE GT SCH (21:21)
[2017-10-04] MEDS: LATANOPROST EYE DROP 0.005% 2.5 ML BOTTLE EACHEYE SCH (21:22)
[2017-10-04] MEDS: ATORVASTATIN 10 MG TABLET GT SCH (21:24)
[2017-10-04] MEDS: INSULIN DETEMIR 100 UNIT/ML CARTRIDGE SQ SCH (23:22)
[2017-10-05] VITALS (41 sets, daily range): BP systolic 99–179; BP diastolic 55–115
--- NOTE | 2017-10-05 00:25 | NUR ---
MED NOTE: PT SEEMS TO BE RESISTING THE VENT AND GRIMACING. DILAUDID IVP ADMINISTERED ORDERED BY DION UMANZOR. WILL CONTINUE TO MONITOR.
[2017-10-05] MEDS: HYDROCODONE/APAP 5/325MG 1 EACH TABLET PO PRN (03:29)
[2017-10-05 05:14] LABS: BASOPHILS % (AUTO) 0.5 % (0.0-2.0); EOSINOPHILS # (AUTO) 1.1 /CMM (0.0-0.7); EOSINOPHILS % (AUTO) 12.7 % (0.0-6.0); HEMATOCRIT 28 % (39-51); HEMOGLOBIN 9.4 g/dL (13.5-17.5); LYMPHOCYTES # (AUTO) 1.9 /CMM (0.8-4.8); LYMPHOCYTES % (AUTO) 20.9 % (20.0-44.0); MEAN CORPUSCULAR HEMOGLOBIN 32 PG (26.0-33.0); MEAN CORPUSCULAR HGB CONC 34 g/dl (31.0-36.0); MEAN CORPUSCULAR VOLUME 93 fL (80-96); MONOCYTES # (AUTO) 0.8 /CMM (0.1-1.30); MONOCYTES % (AUTO) 9.2 % (2.0-12.0); NEUTROPHILS # (AUTO) 5.1 /CMM (1.8-8.9); NEUTROPHILS % (AUTO) 56.7 % (43.0-81.0); PLATELET COUNT (AUTO) 382 /CMM (150-450); RDW COEFFICIENT OF VARIATION 13.7 (11.5-15.0); RED BLOOD CELL COUNT(AUTO) 2.95 MIL/uL (4.5-6.0)
[2017-10-05 05:20] LABS: CREATININE 0.9 mg/dL (0.6-1.3); MAGNESIUM 1.9 mg/dL (1.8-2.4); POTASSIUM 3.9 mmol/L (3.5-5.1)
[2017-10-05 05:22] LABS: INR 0.96 (0.87-1.13)
[2017-10-05 05:53] LABS: EOSINOPHILS % (MANUAL) 10 % (0-4); LYMPHOCYTES % (MANUAL) 21 % (16-48); MONOCYTES % (MANUAL) 8 % (0-11.0); NEUTROPHILS % (MANUAL) 61 (42-76)
[2017-10-05] MEDS: BLOOD SUGAR DIAGNOSTIC 1 EACH STRIP IN SCH ×3 (05:57→17:10)
[2017-10-05] MEDS: VANCOMYCIN 1 GM in IV D5W 250 ML IV SCH (05:57)
[2017-10-05] MEDS: IV NS 0.9% 250 ML IV PRN (05:58)
--- NOTE | 2017-10-05 06:36 | NUR ---
ICU/CERTIFIED SUBSTANCE ABUSE COUNSELOR AM CARE GIVEN. WOUND CARE DONE ORDERED. PT TOLERATED WELL. WILL CONTINUE TO MONITOR.
[2017-10-05] MEDS: CEFEPIME 1 GM in IV D5W 50 ML IV SCH ×2 (08:23→21:23)
[2017-10-05] MEDS: BRIMONIDINE TARTRATE OPHT SOLN 5 ML BOTTLE EACHEYE SCH ×3 (08:24→16:40)
[2017-10-05] MEDS: POLYVINYL ALCOHOL 15 ML BOTTLE OP SCH ×3 (08:24→16:40)
[2017-10-05] MEDS: TIMOLOL MAL/DORZOLAM HCL OPHTH 10 ML BOTTLE EACHEYE SCH ×2 (08:24→16:41)
[2017-10-05] MEDS: HYDROGEL DRESSING 90 GM TUBE TP SCH (08:25)
[2017-10-05] MEDS: Z GUARD REMEDY 4 OZ OINT TP SCH ×2 (08:25→21:00)
[2017-10-05 08:39] LABS: ABG BASE EXCESS 2.3 mmol/L; ABG OXYGEN SATURATION 97.5 % (92.0-98.5); ABG PCO2 28.7 mmHg (35.0-45.0); ABG PH 7.545 (7.350-7.450); ABG PO2 99.4 mmHg (75.0-100.0); AaDO2 152.8 mmHg; COHb 0.3 % (0.5-1.5); MetHb 0.7 % (0.0-1.5); O2Hb 96.5 % (94.0-97.0); PEEP,BG 5 cm H2O; SITE, ABG Right Radial; VT, ABG 550 mL
--- NOTE | 2017-10-05 08:49 | NUR ---
VENT CHANGES KERONOW ORDER: VT 500 RATE 14 Addendum: 10/05/17 at 0850 by ROMEO LEONG RT Amended: Links added.
--- NOTE | 2017-10-05 09:54 | NUR ---
RN NOTES CALLED DR MARTINEZ'S OFFICES, SPOKE WITH THE DIRECTOR GLOBAL MARKET RESEARCH, DR OCHOA WILL BE HERE YULISSA FOR TRACHE PLACEMENT.
[2017-10-05] MEDS: GLYTROL 1,000 ML BAG GT PRN (10:08)
[2017-10-05] MEDS: PHENYTOIN SUSP UDC 100 MG/4 ML UDC GT SCH ×2 (10:08→16:39)
[2017-10-05] MEDS: LEVETIRACETAM SOL (5 ML) 100 MG/ML UDC GT SCH ×2 (10:08→21:54)
[2017-10-05] MEDS: CARVEDILOL 3.125 MG TABLET GT SCH ×2 (10:08→21:54)
[2017-10-05] MEDS: LACTOBACILLUS RHAMNOSUS GG 1 EACH CAP.SPRINK GT SCH ×2 (10:08→16:39)
[2017-10-05] MEDS: MULTIVIT, IRON, MIN NO. 8, FA 1 TAB GT SCH (10:09)
[2017-10-05] MEDS: PANTOPRAZOLE 40 MG/PACK PACK GT SCH (10:09)
[2017-10-05] MEDS: ASCORBIC ACID 500 MG TABLET GT SCH (10:09)
[2017-10-05] MEDS: PROSOURCE / PROSTAT (PYXIS) 30 ML UDC GT SCH ×3 (10:09→16:40)
[2017-10-05] MEDS: ASPIRIN 81 MG TAB.CHEW GT SCH (10:09)
[2017-10-05] MEDS: ENOXAPARIN SODIUM 40 MG/0.4 ML DISP.SYRIN SQ SCH (10:10)
[2017-10-05] MEDS: ONDANSETRON HCL/PF 4 MG/2 ML VIAL IV PRN (10:38)
[2017-10-05] MEDS: INSULIN REGULAR, HUMAN 100 UNIT/ML 3 ML VIAL SQ PRN ×2 (11:39→17:11)
--- NOTE | 2017-10-05 12:01 | NUR ---
BUILDING COORDINATOR NOTE 0730: Received patient awake, but does not follow commands. Opens eyes. With ETT to vent tolerated settings well. No respiratory distress noted at this time. With GT intact, feeding on hold for possible trache placement. RAÚL PICC intact. SR 60's on the monitor. Rae cath intact, noted with yellow urine with sediments drained to BSD. 0930: RT reported to Dr. Edwards re: the ABG result, changed vent setting AC 14 and Vt 500. 1030: S/E by Dr. Dietz, said he will make schedule for trache placement over the weekend. MD aware restarted on feeding for no plan of procedure today. With episode of vomiting x1, held feeding, placed on high fowlers and given Zofran as ordered. 1045: Updated daughter via phone and made aware procedure will not be done today, verbalized understanding. Also aware for episode of vomiting. 1130: S/E by dr. Edwards, aware for the plan of trache placement over the weekend, awaiting for schedule. 1145: S/E by Dr. Burris, no new order at this time. 1200: No any significant changes. No more emesis. Kept HOB elevated. Will restart on feeding.
--- NOTE | 2017-10-05 18:19 | NUR ---
RESULTS TECHNICIAN NOTE No significant changes noted at this time. Kept clean, warm and dry. Needs anticipated.
--- NOTE | 2017-10-05 19:53 | NUR ---
curriculum director. initial assessment. received the pt rest on the bed. OPEN EYES. DOES NOT FOLLOW COMMANDS. STAFFING MANAGER SHOWING NSR. ORALLY INTUBATED. ETT 7.5CM,LIP 24CM,AC 14,TV 500,FIO2 40%,PEEP 5, SAT 98%. GT INTACT, GLYTROL 65ML/H,HOB ELEVATED. FC PATENT. URINE DRAINING, RT UPPER ARM PICC LINE. TKO@5ML/H. TURN AND REPOSITION Q2H. WILL CONTINUE TO MONITOR VITALS.
--- NOTE | 2017-10-05 21:48 | NUR ---
PT RECEIVED INTUBATED WITH 7.5 ETT SECURED AT 24CM AT THE LIP. NO RESP DISTRESS. TOLERATING VENT SETTINGS. SX'D FOR MOD AMT OF THICK WHITE SECRETIONS. VENT ALARMS SET AND AUDIBLE. AMBU BAG AT BEDSIDE. VENT PLUGGED INTO RED OUTLET. WILL CONTINUE TO MONITOR. Addendum: 10/05/17 at 2149 by JORGE LUIS ESPANA RT Amended: Links added.
[2017-10-05] MEDS: TAMSULOSIN 0.4 MG CAP.SR.24H GT SCH (21:54)
[2017-10-05] MEDS: ATORVASTATIN 10 MG TABLET GT SCH (21:54)
[2017-10-05] MEDS: LATANOPROST EYE DROP 0.005% 2.5 ML BOTTLE EACHEYE SCH (21:57)
[2017-10-05] MEDS: TERAZOSIN HCL 1 MG CAPSULE GT SCH (22:02)
[2017-10-06] VITALS (37 sets, daily range): BP systolic 98–132; BP diastolic 54–74
[2017-10-06] MEDS: INSULIN DETEMIR 100 UNIT/ML CARTRIDGE SQ SCH ×2 (00:26→22:19)
[2017-10-06] MEDS: INSULIN REGULAR, HUMAN 100 UNIT/ML 3 ML VIAL SQ PRN ×2 (00:27→17:35)
[2017-10-06] MEDS: BLOOD SUGAR DIAGNOSTIC 1 EACH STRIP IN SCH ×5 (00:28→23:48)
--- NOTE | 2017-10-06 03:34 | NUR ---
LEAN LEADER. AM CARE, ORAL CARE, BED BATH GIVEN. LINEN CHANGED. REMAINING SAME VENT SETTING TOLERATED WELL. NPO FROM NOW. TODAY TRACH PLACEMENT. AFEBRILE. HOB ELEVATED. FC PATENT. URINE DRAINING IV RT UPPER ARM PICC LINE TKO RUNNING. WILL CONTINUE TO MONITOR VITALS.
[2017-10-06 04:46] LABS: CREATININE 0.9 mg/dL (0.6-1.3); POTASSIUM 4.1 mmol/L (3.5-5.1)
[2017-10-06] MEDS: VANCOMYCIN 1 GM in IV D5W 250 ML IV SCH (05:30)
[2017-10-06] MEDS: IV NS 0.9% 250 ML IV PRN (05:35)
--- NOTE | 2017-10-06 05:36 | NUR ---
INSPECTOR AND ADJUSTER GOLF [employer]UB HEAD. BLOOD SUGAR 171. NOT GIVEN INSULIN SLIDING SCALE. PT IS NPO. FOR TRACHEOSTOMY.
[2017-10-06] MEDS: LACTOBACILLUS RHAMNOSUS GG 1 EACH CAP.SPRINK GT SCH ×2 (08:05→17:33)
[2017-10-06] MEDS: CEFEPIME 1 GM in IV D5W 50 ML IV SCH ×2 (08:05→20:40)
[2017-10-06] MEDS: CARVEDILOL 3.125 MG TABLET GT SCH ×2 (08:05→20:40)
[2017-10-06] MEDS: ASPIRIN 81 MG TAB.CHEW GT SCH (08:05)
[2017-10-06] MEDS: PANTOPRAZOLE 40 MG/PACK PACK GT SCH (08:06)
[2017-10-06] MEDS: ASCORBIC ACID 500 MG TABLET GT SCH (08:06)
[2017-10-06] MEDS: ENOXAPARIN SODIUM 40 MG/0.4 ML DISP.SYRIN SQ SCH (08:06)
[2017-10-06] MEDS: PROSOURCE / PROSTAT (PYXIS) 30 ML UDC GT SCH ×3 (08:06→17:34)
[2017-10-06] MEDS: MULTIVIT, IRON, MIN NO. 8, FA 1 TAB GT SCH (08:06)
[2017-10-06] MEDS: Z GUARD REMEDY 4 OZ OINT TP SCH ×2 (08:07→20:41)
[2017-10-06] MEDS: HYDROGEL DRESSING 90 GM TUBE TP SCH (08:07)
[2017-10-06] MEDS: TIMOLOL MAL/DORZOLAM HCL OPHTH 10 ML BOTTLE EACHEYE SCH ×2 (08:09→17:34)
[2017-10-06] MEDS: BRIMONIDINE TARTRATE OPHT SOLN 5 ML BOTTLE EACHEYE SCH ×3 (08:12→17:34)
[2017-10-06] MEDS: POLYVINYL ALCOHOL 15 ML BOTTLE OP SCH ×3 (08:12→17:34)
[2017-10-06 09:42] LABS: BASOPHILS % (AUTO) 0.5 % (0.0-2.0); EOSINOPHILS # (AUTO) 0.9 /CMM (0.0-0.7); EOSINOPHILS % (AUTO) 10.1 % (0.0-6.0); HEMATOCRIT 27 % (39-51); HEMOGLOBIN 8.8 g/dL (13.5-17.5); LYMPHOCYTES # (AUTO) 1.4 /CMM (0.8-4.8); LYMPHOCYTES % (AUTO) 16.1 % (20.0-44.0); MEAN CORPUSCULAR HEMOGLOBIN 31 PG (26.0-33.0); MEAN CORPUSCULAR HGB CONC 33 g/dl (31.0-36.0); MEAN CORPUSCULAR VOLUME 95 fL (80-96); MONOCYTES # (AUTO) 0.7 /CMM (0.1-1.30); MONOCYTES % (AUTO) 8.8 % (2.0-12.0); NEUTROPHILS # (AUTO) 5.5 /CMM (1.8-8.9); NEUTROPHILS % (AUTO) 64.5 % (43.0-81.0); PLATELET COUNT (AUTO) 386 /CMM (150-450); RDW COEFFICIENT OF VARIATION 14.1 (11.5-15.0); RED BLOOD CELL COUNT(AUTO) 2.83 MIL/uL (4.5-6.0); WHITE BLOOD COUNT (AUTO) 8.4 K/uL (4.3-11.0)
[2017-10-06 11:11] LABS: INR 0.98 (0.87-1.13); PROTHROMBIN TIME 10.2 SECS (9.5-12.7)
[2017-10-06] MEDS ORDERED: LIDOCAINE MPF 1%-EPI 1:200,000 30 ML VIAL IJ ONE (11:20)
[2017-10-06] MEDS ORDERED: ROCURONIUM BROMIDE 50 MG/5 ML ONE (11:31)
[2017-10-06] MEDS ORDERED: MIDAZOLAM HCL 2 MG/2ML VIAL ONE (11:31)
--- NOTE | 2017-10-06 13:18 | NUR ---
TRANSCRIPTION NOTE 0720: Received patient awake, opens eyes but does not follow commands. With ETT to cent, tolerated settings well. No respiratory distress noted at this time. VSS. SR 60's on the monitor. RAÚL PICC intact. Rae cath intact, noted with clear yellow urine drained to BSD. GT intact, feeding on hold for prep for trache placement. Kept NPO. No S/S hypo/hyperglycemia noted at this time. 1200: OR personnels came in and got patient, patient on stable VSS. Anesthesiologist spoke with the daughter. 1250: Patient back from OR, with new trache, Jacquelyn #[id number], noted with moderate amount of bleeding. No respiratory distress noted at this time. VSS at baseline. CN spoke with the daughter via phone and given update.
[2017-10-06] MEDS: PHENYTOIN SUSP UDC 100 MG/4 ML UDC GT SCH ×2 (13:29→17:33)
[2017-10-06] MEDS: LEVETIRACETAM SOL (5 ML) 100 MG/ML UDC GT SCH ×2 (13:29→20:40)
[2017-10-06] MEDS: GLYTROL 1,000 ML BAG GT PRN (13:52)
--- NOTE | 2017-10-06 18:10 | NUR ---
INSPECTOR GENERAL NOTE No any significant changes after trache placement, VSS. Visited by daughter, all questions and concerns were answered. Kept clean, warm and dry. HOB elevated. Will endorse to next shift.
[2017-10-06] MEDS: ATORVASTATIN 10 MG TABLET GT SCH (22:16)
[2017-10-06] MEDS: TAMSULOSIN 0.4 MG CAP.SR.24H GT SCH (22:16)
[2017-10-06] MEDS: TERAZOSIN HCL 1 MG CAPSULE GT SCH (22:30)
[2017-10-06] MEDS: LATANOPROST EYE DROP 0.005% 2.5 ML BOTTLE EACHEYE SCH (22:37)
[2017-10-07] VITALS (28 sets, daily range): BP systolic 94–157; BP diastolic 57–92
--- NOTE | 2017-10-07 01:57 | NUR ---
CONSTRUCTION ENGINEER DF PT WITH EMESIS ESTIMATED AMOUNT OF 300ML BROWN BRAVO IN COLOR. TUBE FEEDING PLACED ON HOLD. I WILL MEDICATE PT WITH ZOFRAN 4 MG IVP.
[2017-10-07] MEDS: ONDANSETRON HCL/PF 4 MG/2 ML VIAL IV PRN (02:01)
[2017-10-07 04:46] LABS: CALCIUM, SERUM 8.9 mg/dL (8.5-10.1); CREATININE 0.9 mg/dL (0.6-1.3); POTASSIUM 4.1 mmol/L (3.5-5.1)
[2017-10-07] MEDS: BLOOD SUGAR DIAGNOSTIC 1 EACH STRIP IN SCH ×4 (06:29→23:06)
[2017-10-07] MEDS: INSULIN REGULAR, HUMAN 100 UNIT/ML 3 ML VIAL SQ PRN ×5 (06:31→23:08)
[2017-10-07] MEDS: VANCOMYCIN 1 GM in IV D5W 250 ML IV SCH (06:38)
--- NOTE | 2017-10-07 07:40 | NUR ---
INITIAL REGULATORY PRODUCT MANAGER NOTE RCVD PT WITH EYES CLOSED, UNABLE TO FOLLOW COMMANDS, SR ON TELE. S/P TRACH YESTERDAY TOLERATING ORDERED VENT SETTINGS WELL. [id number] INITIAL REGULATORY PRODUCT MANAGER NOTE RCVD PT WITH EYES CLOSED, UNABLE TO FOLLOW COMMANDS OR RESPOND TO HIS NAME. SR ON TELE. S/P TRACH PLACEMENT TOLERATING ORDERED VENT SETTINGS WELL. G-TUBE PLACEMENT VERIFIED BY AUSCULTATION/ASPIRATION. MINIMAL RESIDUAL OBTAINED. JACOBSEN TO GRAVITY DRAINING CLOUDY, YELLOW URINE. RAÚL PICC C/D/I/PATENT. NO S/O INFILTRATION/PHLEBITIS OBSERVED UPON FLUSHING LINE. WILL CONTINUE TO MONITOR PT FOR SAFETY AND COMFORT. CALL LIGHT WITHIN REACH. BED IN LOW AND LOCKED POSITION.
[2017-10-07] MEDS: BRIMONIDINE TARTRATE OPHT SOLN 5 ML BOTTLE EACHEYE SCH ×3 (08:09→17:40)
[2017-10-07] MEDS: TIMOLOL MAL/DORZOLAM HCL OPHTH 10 ML BOTTLE EACHEYE SCH ×2 (08:10→17:41)
[2017-10-07] MEDS: POLYVINYL ALCOHOL 15 ML BOTTLE OP SCH ×3 (08:10→17:40)
[2017-10-07] MEDS: LEVETIRACETAM SOL (5 ML) 100 MG/ML UDC GT SCH ×2 (08:10→20:40)
[2017-10-07] MEDS: PHENYTOIN SUSP UDC 100 MG/4 ML UDC GT SCH ×2 (08:10→17:38)
[2017-10-07] MEDS: MULTIVIT, IRON, MIN NO. 8, FA 1 TAB GT SCH (08:11)
[2017-10-07] MEDS: ASPIRIN 81 MG TAB.CHEW GT SCH (08:11)
[2017-10-07] MEDS: PANTOPRAZOLE 40 MG/PACK PACK GT SCH (08:11)
[2017-10-07] MEDS: CARVEDILOL 3.125 MG TABLET GT SCH ×2 (08:11→20:41)
[2017-10-07] MEDS: LACTOBACILLUS RHAMNOSUS GG 1 EACH CAP.SPRINK GT SCH ×2 (08:11→17:38)
[2017-10-07] MEDS: ASCORBIC ACID 500 MG TABLET GT SCH (08:11)
[2017-10-07] MEDS: CEFEPIME 1 GM in IV D5W 50 ML IV SCH ×2 (08:13→20:40)
[2017-10-07] MEDS: PROSOURCE / PROSTAT (PYXIS) 30 ML UDC GT SCH ×3 (08:13→17:38)
[2017-10-07] MEDS: Z GUARD REMEDY 4 OZ OINT TP SCH ×2 (08:14→20:42)
[2017-10-07] MEDS: HYDROGEL DRESSING 90 GM TUBE TP SCH (08:14)
[2017-10-07] MEDS: ENOXAPARIN SODIUM 40 MG/0.4 ML DISP.SYRIN SQ SCH (08:15)
[2017-10-07] MEDS: GLYTROL 1,000 ML BAG GT PRN (09:08)
--- NOTE | 2017-10-07 12:14 | NUR ---
ANTENNA ENGINEER NOTE PT REMAINS STABLE, COPIOUS, THICK, BLOOD TINGED SECRETIONS FROM TRACH SITE OBSERVED. SITE CLEANSED WITH STERILE PROCEDURE. WILL CONTINUE TO MONITOR.
--- NOTE | 2017-10-07 18:32 | NUR ---
ROOM MAIDPHYSICIAN GENERAL INTERNAL MEDICINE NOTE PT TRANSFERRED TO FIRST FLOOR UNDER RIYA STATUS SHOWING NO S/O DISTRESS OR PAIN. PT TRANSPORTED VIA BED WITH RT AND RN AT BEDSIDE. PT'S CARE ENDORSED TO NOÉ FONTAINE. PT'S MEDICATIONS AND CHART TAKEN WITH PT.
--- NOTE | 2017-10-07 18:40 | NUR ---
RN NOTE Received 66 year old male patient from ICU via bed (on monitor). Patient originally from [facility] and was admitted here for respiratory failure and sepsis secondary to pneumonia. Patient has history of CHF, CVA, chronic encephalopathy, dementia, seizures, craniotomy, HL, CAD, glaucoma, HTN, DM, and BPH. Patient is a full code. Non-responsive to verbal or tactile stimuli except some movement of his lips. Patient has g-tube, russell catheter. Trach #8 Shiley was placed yesterday and there is some oozing around trach site. Stage 4 pressure ulcer on sacrum. Will endorse plan of care to weight shifter RN.
[2017-10-07] MEDS: IV NS 0.9% 250 ML IV PRN (20:40)
[2017-10-07] MEDS: TAMSULOSIN 0.4 MG CAP.SR.24H GT SCH (21:39)
[2017-10-07] MEDS: ATORVASTATIN 10 MG TABLET GT SCH (21:40)
[2017-10-07] MEDS: TERAZOSIN HCL 1 MG CAPSULE GT SCH (21:40)
[2017-10-07] MEDS: LATANOPROST EYE DROP 0.005% 2.5 ML BOTTLE EACHEYE SCH (21:41)
[2017-10-07] MEDS: INSULIN DETEMIR 100 UNIT/ML CARTRIDGE SQ SCH (22:54)
[2017-10-08] VITALS: BP 115/68
[2017-10-08 04:00] VITALS: BP 135/75
[2017-10-08] MEDS: BLOOD SUGAR DIAGNOSTIC 1 EACH STRIP IN SCH ×4 (05:32→23:56)
[2017-10-08] MEDS: GLYTROL 1,000 ML BAG GT PRN ×2 (05:33→23:56)
[2017-10-08] MEDS: INSULIN REGULAR, HUMAN 100 UNIT/ML 3 ML VIAL SQ PRN ×4 (05:43→23:59)
[2017-10-08 06:19] LABS: CALCIUM, SERUM 9.1 mg/dL (8.5-10.1); CREATININE 0.9 mg/dL (0.6-1.3)
[2017-10-08] MEDS: VANCOMYCIN 1 GM in IV D5W 250 ML IV SCH (06:30)
--- NOTE | 2017-10-08 06:30 | NUR ---
JOSÉ MIGUEL UMANZOR VANCO TROUGH 14; ADMINISTERED VANCO ORDERED.
[2017-10-08 08:00] VITALS: BP 121/72
[2017-10-08] MEDS: PHENYTOIN SUSP UDC 100 MG/4 ML UDC GT SCH ×2 (08:26→16:01)
[2017-10-08] MEDS: LACTOBACILLUS RHAMNOSUS GG 1 EACH CAP.SPRINK GT SCH ×2 (08:26→16:01)
[2017-10-08] MEDS: MULTIVIT, IRON, MIN NO. 8, FA 1 TAB GT SCH (08:26)
[2017-10-08] MEDS: ASPIRIN 81 MG TAB.CHEW GT SCH (08:26)
[2017-10-08] MEDS: LEVETIRACETAM SOL (5 ML) 100 MG/ML UDC GT SCH ×2 (08:26→22:04)
[2017-10-08] MEDS: ASCORBIC ACID 500 MG TABLET GT SCH (08:26)
[2017-10-08] MEDS: PROSOURCE / PROSTAT (PYXIS) 30 ML UDC GT SCH ×3 (08:27→16:01)
[2017-10-08] MEDS: PANTOPRAZOLE 40 MG/PACK PACK GT SCH (08:27)
[2017-10-08] MEDS: TIMOLOL MAL/DORZOLAM HCL OPHTH 10 ML BOTTLE EACHEYE SCH ×2 (08:28→16:01)
[2017-10-08] MEDS: BRIMONIDINE TARTRATE OPHT SOLN 5 ML BOTTLE EACHEYE SCH ×3 (08:28→16:01)
[2017-10-08] MEDS: CARVEDILOL 3.125 MG TABLET GT SCH ×2 (08:28→22:05)
[2017-10-08] MEDS: HYDROGEL DRESSING 90 GM TUBE TP SCH (08:29)
[2017-10-08] MEDS: Z GUARD REMEDY 4 OZ OINT TP SCH ×2 (08:29→22:06)
[2017-10-08] MEDS: POLYVINYL ALCOHOL 15 ML BOTTLE OP SCH ×3 (08:29→16:01)
[2017-10-08] MEDS: ENOXAPARIN SODIUM 40 MG/0.4 ML DISP.SYRIN SQ SCH (08:37)
[2017-10-08 12:00] VITALS: BP 110/64
[2017-10-08 16:00] VITALS: BP 105/69
--- NOTE | 2017-10-08 19:15 | NUR ---
RN INITIAL NOTES RECEIVED PATIENT IN BED, NOTED WITH EYE OPENS, NO TRACKING OBSERVED. PATIENT IS NONVERBAL. PATIENT OBSERVED WITH FACIAL GRIMACING AND WITHDRAWAL FROM TOUCH WITH PALPATION, WILL MONITOR PATIENT CLOSELY AND ADMINISTER PAIN MEDICATION NEEDED. SR WITH 1ST DEGREE AVB, HR OF 78. GTF INFUSING WELL, NO GASTRIC RESIDUAL NOTED. F/C INTACT AND DRAINING WELL WITH CLOUDY, YELLOW URINE. RAÚL PICC LINE, GOOD BLOOD RETURN, ON SL. PATIENT'S NEEDS ANTICIPATED AND MET. SAFETY AND COMFORT ENSURED. BED IN LOW AND LOCKED POSITION. WILL MONITOR CLOSELY.
[2017-10-08 20:00] VITALS: BP 116/67
--- NOTE | 2017-10-08 22:00 | NUR ---
RN NOTES PATIENT'S DAUGHTER, HILDA, AT BEDSIDE. DAUGHTER UPDATED WITH PATIENT'S CURRENT CONDITION. QUESTIONS ANSWERED. NO NEW CONCERNS AT THIS TIME.
[2017-10-08] MEDS: TERAZOSIN HCL 1 MG CAPSULE GT SCH (22:04)
[2017-10-08] MEDS: ATORVASTATIN 10 MG TABLET GT SCH (22:04)
[2017-10-08] MEDS: HYDROCODONE/APAP 5/325MG 1 EACH TABLET PO PRN (22:04)
[2017-10-08] MEDS: TAMSULOSIN 0.4 MG CAP.SR.24H GT SCH (22:04)
[2017-10-08] MEDS: LATANOPROST EYE DROP 0.005% 2.5 ML BOTTLE EACHEYE SCH (22:07)
[2017-10-08] MEDS: INSULIN DETEMIR 100 UNIT/ML CARTRIDGE SQ SCH (22:08)
[2017-10-09] VITALS: BP 105/68
[2017-10-09 04:00] VITALS: BP 114/58
[2017-10-09] MEDS: IV NS 0.9% 250 ML IV PRN (05:34)
[2017-10-09] MEDS: VANCOMYCIN 1 GM in IV D5W 250 ML IV SCH (05:34)
[2017-10-09] MEDS: BLOOD SUGAR DIAGNOSTIC 1 EACH STRIP IN SCH ×3 (05:34→16:58)
[2017-10-09] MEDS: INSULIN REGULAR, HUMAN 100 UNIT/ML 3 ML VIAL SQ PRN ×3 (05:43→17:04)
--- NOTE | 2017-10-09 06:25 | NUR ---
RN INITIAL NOTES PATIENT'S TRACH, C/D/I, MIDLINE. MINIMAL REDNESS NOTED ON SURROUNDING AREA, WITH FREQUENT SOILAGE OF SPUTUM OOZING OUT FROM THE EDGES OF THE TRACH. PATIENT'S AIRWAY SUCTIONED NEEDED, KEPT PATIENT CLEAN AND DRY. TRACH DRESSING CHANGE DONE FREQUENTLY NEEDED. WOUND CARE DONE. PATIENT TURNED AND REPOSITIONED. SAFETY AND COMFORT ENSURED. RAÚL PICC LINE FLUSHED, KEPT PATENT. GTF INFUSING WELL WITH NO RESIDUAL. F/C INTACT AND DRAINING VIA GRAVITY. PATIENT'S NEEDS ANTICIPATED AND MET. SAFETY AND COMFORT ENSURED. BED IN LOW AND LOCKED POSITION. HOB ELEVATED. WILL ENDORSE ACCORDINGLY FOR CONTINUITY OF CARE.
[2017-10-09 06:43] LABS: CALCIUM, SERUM 9.4 mg/dL (8.5-10.1); CREATININE 0.9 mg/dL (0.6-1.3); POTASSIUM 4.3 mmol/L (3.5-5.1)
--- NOTE | 2017-10-09 07:56 | NUR ---
RIYA/RN - Notes Received pt in bed, opens eyes, does not follow commands. No acute distress. Respirations are even and unlabored. Trach to mechanical vent with settings as ordered. On tele reading SR with 1st degree AVB. PICC line patent and intact. Rae catheter intact draining urine to gravity. Tolerating GTF well. Safety and comfort measures in place. Will continue to monitor pt closely.
[2017-10-09 08:00] VITALS: BP 123/67
[2017-10-09] MEDS: LEVETIRACETAM SOL (5 ML) 100 MG/ML UDC GT SCH ×2 (08:39→21:31)
[2017-10-09] MEDS: PANTOPRAZOLE 40 MG/PACK PACK GT SCH (08:39)
[2017-10-09] MEDS: PHENYTOIN SUSP UDC 100 MG/4 ML UDC GT SCH ×2 (08:39→16:54)
[2017-10-09] MEDS: MULTIVIT, IRON, MIN NO. 8, FA 1 TAB GT SCH (08:39)
[2017-10-09] MEDS: LACTOBACILLUS RHAMNOSUS GG 1 EACH CAP.SPRINK GT SCH ×2 (08:39→16:54)
[2017-10-09] MEDS: PROSOURCE / PROSTAT (PYXIS) 30 ML UDC GT SCH ×3 (08:39→16:54)
[2017-10-09] MEDS: ASCORBIC ACID 500 MG TABLET GT SCH (08:39)
[2017-10-09] MEDS: ASPIRIN 81 MG TAB.CHEW GT SCH (08:39)
[2017-10-09] MEDS: CARVEDILOL 3.125 MG TABLET GT SCH ×2 (08:40→21:32)
[2017-10-09] MEDS: BRIMONIDINE TARTRATE OPHT SOLN 5 ML BOTTLE EACHEYE SCH ×3 (08:40→16:54)
[2017-10-09] MEDS: POLYVINYL ALCOHOL 15 ML BOTTLE OP SCH ×3 (08:40→16:54)
[2017-10-09] MEDS: TIMOLOL MAL/DORZOLAM HCL OPHTH 10 ML BOTTLE EACHEYE SCH ×2 (08:41→16:54)
[2017-10-09] MEDS: HYDROGEL DRESSING 90 GM TUBE TP SCH (08:41)
[2017-10-09] MEDS: Z GUARD REMEDY 4 OZ OINT TP SCH ×2 (08:41→21:31)
[2017-10-09] MEDS: ENOXAPARIN SODIUM 40 MG/0.4 ML DISP.SYRIN SQ SCH (08:42)
[2017-10-09 09:40] LABS: ABG BASE EXCESS -0.4 mmol/L; ABG OXYGEN SATURATION 97.8 % (92.0-98.5); ABG PCO2 36.7 mmHg (35.0-45.0); ABG PH 7.428 (7.350-7.450); ABG PO2 112.6 mmHg (75.0-100.0); AaDO2 130.4 mmHg; COHb 0.1 % (0.5-1.5); MetHb 0.3 % (0.0-1.5); O2Hb 97.4 % (94.0-97.0); PEEP,BG 5 cm H2O; SITE, ABG Right Radial; VT, ABG 500 mL
[2017-10-09 12:00] VITALS: BP 116/64
[2017-10-09 16:00] VITALS: BP 141/72
[2017-10-09] MEDS: GLYTROL 1,000 ML BAG GT PRN (18:06)
--- NOTE | 2017-10-09 18:47 | NUR ---
Tele/RN - Notes No significant change in pt's condition. No acute distress. Will endorse to night nurse for continuity of care.
[2017-10-09 20:00] VITALS: BP 129/70
--- NOTE | 2017-10-09 20:00 | NUR ---
Rn Initial Notes Received pt in bed, opens eyes, No acute distress. Respirations are even and unlabored. On tele reading SR 70. PICC line patent and intact. Rae catheter intact draining urine to gravity. Tolerating GTF well. Safety and comfort measures in place. Will continue to monitor pt closely.
[2017-10-09] MEDS: TERAZOSIN HCL 1 MG CAPSULE GT SCH (21:33)
[2017-10-09] MEDS: TAMSULOSIN 0.4 MG CAP.SR.24H GT SCH (21:33)
[2017-10-09] MEDS: ATORVASTATIN 10 MG TABLET GT SCH (21:34)
[2017-10-09] MEDS: INSULIN DETEMIR 100 UNIT/ML CARTRIDGE SQ SCH (21:37)
[2017-10-09] MEDS: LATANOPROST EYE DROP 0.005% 2.5 ML BOTTLE EACHEYE SCH (21:38)
[2017-10-10] VITALS: BP 116/72
[2017-10-10] MEDS: INSULIN REGULAR, HUMAN 100 UNIT/ML 3 ML VIAL SQ PRN ×4 (00:37→18:09)
[2017-10-10] MEDS: BLOOD SUGAR DIAGNOSTIC 1 EACH STRIP IN SCH ×4 (00:37→17:35)
[2017-10-10 04:00] VITALS: BP 140/73
[2017-10-10] MEDS: VANCOMYCIN 1 GM in IV D5W 250 ML IV SCH (06:03)
[2017-10-10] MEDS: IV NS 0.9% 250 ML IV PRN (06:04)
[2017-10-10] MEDS: GLYTROL 1,000 ML BAG GT PRN (06:05)
[2017-10-10 07:05] LABS: CALCIUM, SERUM 9.3 mg/dL (8.5-10.1); CREATININE 0.8 mg/dL (0.6-1.3); POTASSIUM 4.4 mmol/L (3.5-5.1)
--- NOTE | 2017-10-10 07:29 | NUR ---
RN CLOSING NOTES PT NO ACUTE CHANGE IN PTS CONDITION OVERNIGHT. GT TOLERATED WELL. CURRENT VENT SETTING AT [facility] TOLERATED WELL, NO DISTRESS. JACOBSEN CATH INTACT. ALL MEDS GIVING ORDERED. AM LABS DRAWN . SAFETY AND COMFORT ENSURED. TRACH AND WOUND CARE RENDERED. ENDORSED TO AM RN.
[2017-10-10 08:00] VITALS: BP_SYST 138; BP_DIAS 80; BP_DIAS 86
[2017-10-10] MEDS: LEVETIRACETAM SOL (5 ML) 100 MG/ML UDC GT SCH ×2 (08:29→21:28)
[2017-10-10] MEDS: PANTOPRAZOLE 40 MG/PACK PACK GT SCH (08:29)
[2017-10-10] MEDS: PHENYTOIN SUSP UDC 100 MG/4 ML UDC GT SCH ×2 (08:29→16:42)
[2017-10-10] MEDS: LACTOBACILLUS RHAMNOSUS GG 1 EACH CAP.SPRINK GT SCH ×2 (08:29→16:42)
[2017-10-10] MEDS: MULTIVIT, IRON, MIN NO. 8, FA 1 TAB GT SCH (08:29)
[2017-10-10] MEDS: HYDROGEL DRESSING 90 GM TUBE TP SCH (08:30)
[2017-10-10] MEDS: ASCORBIC ACID 500 MG TABLET GT SCH (08:30)
[2017-10-10] MEDS: TIMOLOL MAL/DORZOLAM HCL OPHTH 10 ML BOTTLE EACHEYE SCH ×2 (08:31→16:45)
[2017-10-10] MEDS: PROSOURCE / PROSTAT (PYXIS) 30 ML UDC GT SCH ×3 (08:31→16:42)
[2017-10-10] MEDS: ASPIRIN 81 MG TAB.CHEW GT SCH (08:32)
[2017-10-10] MEDS: Z GUARD REMEDY 4 OZ OINT TP SCH ×2 (08:32→21:30)
[2017-10-10] MEDS: POLYVINYL ALCOHOL 15 ML BOTTLE OP SCH ×3 (08:32→16:43)
[2017-10-10] MEDS: BRIMONIDINE TARTRATE OPHT SOLN 5 ML BOTTLE EACHEYE SCH ×3 (08:32→16:43)
[2017-10-10] MEDS: CARVEDILOL 3.125 MG TABLET GT SCH ×2 (08:34→21:28)
[2017-10-10] MEDS: ENOXAPARIN SODIUM 40 MG/0.4 ML DISP.SYRIN SQ SCH (08:34)
--- NOTE | 2017-10-10 10:50 | NUR ---
RT NOTE PT PLACED ON COOL AEROSOL PER MD ORDER, NO INITIAL RESPIRATORY DISTRESS NOTED. WILL CONTINUE TO MONITOR CLOSELY. RN AWARE.
[2017-10-10 12:00] VITALS: BP 124/67
[2017-10-10 12:18] LABS: ABG BASE EXCESS 1.5 mmol/L; ABG OXYGEN SATURATION 93.6 % (92.0-98.5); ABG PCO2 36.6 mmHg (35.0-45.0); ABG PH 7.458 (7.350-7.450); ABG PO2 71.1 mmHg (75.0-100.0); COHb 0.6 % (0.5-1.5); MetHb 0.3 % (0.0-1.5); O2Hb 92.8 % (94.0-97.0); SITE, ABG Right Radial; VENT MODE, BG C/A 40%
[2017-10-10 16:00] VITALS: BP 144/88
[2017-10-10 20:00] VITALS: BP 122/75
[2017-10-10] MEDS: LATANOPROST EYE DROP 0.005% 2.5 ML BOTTLE EACHEYE SCH (22:00)
[2017-10-10] MEDS: INSULIN DETEMIR 100 UNIT/ML CARTRIDGE SQ SCH (22:01)
[2017-10-10] MEDS: TERAZOSIN HCL 1 MG CAPSULE GT SCH (22:05)
[2017-10-10] MEDS: TAMSULOSIN 0.4 MG CAP.SR.24H GT SCH (22:05)
[2017-10-10] MEDS: ATORVASTATIN 10 MG TABLET GT SCH (22:05)
[2017-10-11] VITALS: BP 135/86
[2017-10-11] MEDS: BLOOD SUGAR DIAGNOSTIC 1 EACH STRIP IN SCH ×5 (00:14→23:53)
[2017-10-11] MEDS: INSULIN REGULAR, HUMAN 100 UNIT/ML 3 ML VIAL SQ PRN ×4 (00:41→17:24)
[2017-10-11 04:00] VITALS: BP 111/61
[2017-10-11] MEDS: GLYTROL 1,000 ML BAG GT PRN (04:39)
[2017-10-11] MEDS: VANCOMYCIN 1 GM in IV D5W 250 ML IV SCH (06:12)
[2017-10-11 06:47] LABS: CALCIUM, SERUM 9.2 mg/dL (8.5-10.1); CREATININE 0.9 mg/dL (0.6-1.3); POTASSIUM 4.1 mmol/L (3.5-5.1)
[2017-10-11 08:00] VITALS: BP 110/59
--- NOTE | 2017-10-11 08:00 | NUR ---
emergency telecommunications dispatcher note PATIENT IN BED , ALL NEEDS ATTENDED, OPEN EYES BUT OBTUNDED, WITH TRACH TO COOLER AEROSOL WITH 10 L WITH 40%FIO2 , ON TELE MONITOR SR WITH IST DEGREE BBB , WITH G TUBE FEEDING BED IN LOWEST AND LOCKED POSITION , RT UPPER ARM PICC LINE IN PLACE NO S]S INFECTION NOTED , TRACH AND ORAL SUCTION DONE, NO SOB NOTED WILL CONT TO MONITOR CLOSELY
[2017-10-11] MEDS: CARVEDILOL 3.125 MG TABLET GT SCH ×2 (09:00→21:40)
[2017-10-11] MEDS: LACTOBACILLUS RHAMNOSUS GG 1 EACH CAP.SPRINK GT SCH ×2 (09:20→17:07)
[2017-10-11] MEDS: ENOXAPARIN SODIUM 40 MG/0.4 ML DISP.SYRIN SQ SCH (09:20)
[2017-10-11] MEDS: HYDROGEL DRESSING 90 GM TUBE TP SCH (09:21)
[2017-10-11] MEDS: Z GUARD REMEDY 4 OZ OINT TP SCH ×2 (09:21→21:44)
[2017-10-11] MEDS: LEVETIRACETAM SOL (5 ML) 100 MG/ML UDC GT SCH ×2 (09:22→21:41)
[2017-10-11] MEDS: MULTIVIT, IRON, MIN NO. 8, FA 1 TAB GT SCH (09:22)
[2017-10-11] MEDS: PANTOPRAZOLE 40 MG/PACK PACK GT SCH (09:22)
[2017-10-11] MEDS: PHENYTOIN SUSP UDC 100 MG/4 ML UDC GT SCH ×2 (09:22→17:07)
[2017-10-11] MEDS: ASPIRIN 81 MG TAB.CHEW GT SCH (09:22)
[2017-10-11] MEDS: ASCORBIC ACID 500 MG TABLET GT SCH (09:23)
[2017-10-11] MEDS: PROSOURCE / PROSTAT (PYXIS) 30 ML UDC GT SCH ×3 (09:23→17:07)
[2017-10-11] MEDS: BRIMONIDINE TARTRATE OPHT SOLN 5 ML BOTTLE EACHEYE SCH ×3 (09:24→17:08)
[2017-10-11] MEDS: TIMOLOL MAL/DORZOLAM HCL OPHTH 10 ML BOTTLE EACHEYE SCH ×2 (09:24→17:08)
[2017-10-11] MEDS: POLYVINYL ALCOHOL 15 ML BOTTLE OP SCH ×3 (09:25→17:08)
--- NOTE | 2017-10-11 10:07 | NUR ---
PAPER CONE MACHINE TENDER NOTE DR DURAN AT BEDSIDE ,NO NEW ORDER GIVEN AT THIS TIME , OK TO CONT ON COLLER AEROSOL, CONT TRACH AND MOUTH CARE AND SUCTION
[2017-10-11 12:00] VITALS: BP 115/61
--- NOTE | 2017-10-11 12:00 | NUR ---
INDUSTRIAL GAS FITTER NOTE ALL NEEDS ATTENDED ,TRACH AND MOUTH CARE DONE FREQUENT SUCTION DONE ,KEEP CLEAN DRY ,WILL CONT TO MONITOR CLOSELY
--- NOTE | 2017-10-11 15:00 | NUR ---
OPERATOR HELPER NOTE CONT ON GTUBE FEEDING ORDERED, NOT IN ACUTE DISTRESS, TRACH CARE DONE
[2017-10-11 16:00] VITALS: BP 118/65
--- NOTE | 2017-10-11 17:37 | NUR ---
BUSINESS OPERATIONS CONSULTANT NOTE KEEP CLEAN DRY , ON G TUBE FEEDING ORDERED ,NO SOB NOTED , ON BREATHING TX, NOT IN ACUTE DISTRESS ,WILL CO T TO MONITOR CLOSELY
--- NOTE | 2017-10-11 19:00 | NUR ---
EDITOR FARM JOURNAL NOTES NO ACUTE CHANGES DURING THE SHIFT. CONTINUE ON TRACH TPEICE TRACH, TRACH CARE DONE, NO DISTRESS
--- NOTE | 2017-10-11 19:30 | NUR ---
RN/TELE NOTES: PATIENT IN BED. NO FACIAL GRIMACES OR MOANING NOTED. OPEN EYES BUT OBTUNDED. WITH TRACH TO COOLER AEROSOL WITH 10 L WITH 40%FIO2 , ON TELE MONITOR SR 70 WITH IST DEGREE. WITH G TUBE FEEDING TOLERATED WELL W/ NO RESIDUAL NOTED. BED IN LOWEST AND LOCKED POSITION , RT UPPER ARM PICC LINE IN PLACE NO S/S INFECTION/ INFILTRATION NOTED. TRACH AND ORAL SUCTION DONE. NOT IN ANY RESPIRATORY DISTRESS/ SOB NOTED. WILL CONT TO MONITOR. CALLLIGHT W/ REACH.
[2017-10-11 20:00] VITALS: BP 120/76
[2017-10-11] MEDS: INSULIN DETEMIR 100 UNIT/ML CARTRIDGE SQ SCH (21:39)
[2017-10-11] MEDS: ATORVASTATIN 10 MG TABLET GT SCH (21:40)
[2017-10-11] MEDS: TAMSULOSIN 0.4 MG CAP.SR.24H GT SCH (21:41)
[2017-10-11] MEDS: TERAZOSIN HCL 1 MG CAPSULE GT SCH (21:41)
[2017-10-11] MEDS: LATANOPROST EYE DROP 0.005% 2.5 ML BOTTLE EACHEYE SCH (21:45)
[2017-10-12] VITALS: BP 108/66
[2017-10-12] MEDS: INSULIN REGULAR, HUMAN 100 UNIT/ML 3 ML VIAL SQ PRN ×5 (00:06→23:48)
[2017-10-12 04:00] VITALS: BP_SYST 127; BP_SYST 144; BP_DIAS 80; BP_DIAS 87
[2017-10-12] MEDS: BLOOD SUGAR DIAGNOSTIC 1 EACH STRIP IN SCH ×4 (05:26→23:36)
[2017-10-12 07:06] LABS: CALCIUM, SERUM 9.3 mg/dL (8.5-10.1); CREATININE 0.8 mg/dL (0.6-1.3)
--- NOTE | 2017-10-12 07:34 | NUR ---
RN/TELE NURSE: PT. IN BED SLEEPING W/ RESPIRATIONS EVEN AND UNLABORED. NO NEW CHANGES NOTED. REPORT GIVEN TO NEXT SHIFT NURSE FOR ZANDER.
[2017-10-12 08:00] VITALS: BP 122/76
--- NOTE | 2017-10-12 08:00 | NUR ---
TELE1/RN AM SHIFT INITIAL NOTES RECEIVED PT ASLEEP IN BED, NO ACUTE DISTRESS OR GRIMACE NOTED. PT NON-VERBAL, OPEN EYES, ON COOL AEROSOL @ 40% FIO2, NOTED WITH RHONCHI LUNG SOUNDS, SUCTIONED FOR AIRWAY CLEARANCE. ON TELE MONITORING WITH SINUS RHYTHM WITH FIRST DEGREE AV BLOCK, HR 71. PICC LINE ON TKO, PATENT WITH NO S/S OF INFECTION. JACOBSEN CATHETER INTACT WITH YELLOW URINE OUTPUT. GTF ON GOING @ 65CC/HR, NO GASTRIC RESIDUAL, FLUSHED, PATENT. NOTED WITH GENERALIZED, NON-PITTING EDEMA, DVT PUMP IN PLACED. PT IS COMFORTABLE, SCHEDULED AM MEDS TO BE GIVEN. CL WITHIN REACHED AND SAFETY MAINTAINED. ON GOING MONITORING.
[2017-10-12] MEDS: BRIMONIDINE TARTRATE OPHT SOLN 5 ML BOTTLE EACHEYE SCH ×3 (09:11→17:30)
[2017-10-12] MEDS: TIMOLOL MAL/DORZOLAM HCL OPHTH 10 ML BOTTLE EACHEYE SCH ×2 (09:12→17:30)
[2017-10-12] MEDS: MULTIVIT, IRON, MIN NO. 8, FA 1 TAB GT SCH (09:13)
[2017-10-12] MEDS: PROSOURCE / PROSTAT (PYXIS) 30 ML UDC GT SCH ×3 (09:13→17:29)
[2017-10-12] MEDS: ASPIRIN 81 MG TAB.CHEW GT SCH (09:13)
[2017-10-12] MEDS: LACTOBACILLUS RHAMNOSUS GG 1 EACH CAP.SPRINK GT SCH ×2 (09:13→17:28)
[2017-10-12] MEDS: LEVETIRACETAM SOL (5 ML) 100 MG/ML UDC GT SCH ×2 (09:14→21:19)
[2017-10-12] MEDS: PANTOPRAZOLE 40 MG/PACK PACK GT SCH (09:14)
[2017-10-12] MEDS: PHENYTOIN SUSP UDC 100 MG/4 ML UDC GT SCH ×2 (09:14→17:29)
[2017-10-12] MEDS: CARVEDILOL 3.125 MG TABLET GT SCH ×2 (09:15→21:20)
[2017-10-12] MEDS: POLYVINYL ALCOHOL 15 ML BOTTLE OP SCH ×3 (09:17→17:29)
[2017-10-12] MEDS: ASCORBIC ACID 500 MG TABLET GT SCH (09:19)
[2017-10-12] MEDS: ENOXAPARIN SODIUM 40 MG/0.4 ML DISP.SYRIN SQ SCH (09:20)
[2017-10-12] MEDS: HYDROGEL DRESSING 90 GM TUBE TP SCH (09:21)
[2017-10-12] MEDS: Z GUARD REMEDY 4 OZ OINT TP SCH ×2 (09:25→21:22)
[2017-10-12 12:00] VITALS: BP_SYST 131; BP_SYST 140; BP_DIAS 70; BP_DIAS 79
--- NOTE | 2017-10-12 13:05 | NUR ---
TELE1/RN ROUNDS - DR. DURAN PT SEEN & EXAMINED BY DR. DURAN. NO NEW ORDERS RECEIVED. MONITORING CONTINUED.
[2017-10-12 16:00] VITALS: BP 144/87
--- NOTE | 2017-10-12 17:00 | NUR ---
TELE1/RN AFTERNOON ROUNDS PT SUCTIONED AND REPOSITIONED. NO CHANGE OF CONDITION. MONITORING CONTINUED.
[2017-10-12] MEDS: GLYTROL 1,000 ML BAG GT PRN (18:07)
--- NOTE | 2017-10-12 19:30 | NUR ---
TELE1/RN AM SHIFT END NOTES ALL NEEDS MET. NO ACUTE CHANGE OF CONDITION NOTED DURING THE SHIFT. PT ENDORSED TO PM NURSE TO CONTINUE CARE. CL WITHIN REACHED AND SAFETY MAINTAINED.
--- NOTE | 2017-10-12 19:30 | NUR ---
RN/TELE NOTES: RECEIVED PT. IN BED W/ EYES CLOSED AND NON VERBAL. NO FACIAL GRIMACES OR MOANING NOTED. NOT IN ANY RESPIRATORY DISTRESS AT THIS TIME. ON COOL AEROSOL @ 40% FIO2 W/ O2 @ 10 LPM .SUCTIONED FOR AIRWAY CLEARANCE. ON TELE MONITORING WITH SINUS RHYTHM WITH FIRST DEGREE AV BLOCK, HR 65 PICC LINE PATENT AND INTACT W/ NO S/S OF INFECTION/INFILTRATION NOTED. ON TKO, JACOBSEN CATHETER INPLACE AND INTACT DRAINING CLEAR YELLOW URINE OUTPUT. GTF ON GOING @ 65CC/HR, NO GASTRIC RESIDUAL, FLUSHED, PATENT. NOTED WITH GENERALIZED, NON-PITTING EDEMA. CALL LIGHT W/REACH ALL NEEDS MEET.
[2017-10-12 20:00] VITALS: BP 131/63
[2017-10-12] MEDS: INSULIN DETEMIR 100 UNIT/ML CARTRIDGE SQ SCH (21:19)
[2017-10-12] MEDS: ATORVASTATIN 10 MG TABLET GT SCH (21:20)
[2017-10-12] MEDS: TAMSULOSIN 0.4 MG CAP.SR.24H GT SCH (21:20)
[2017-10-12] MEDS: TERAZOSIN HCL 1 MG CAPSULE GT SCH (21:21)
[2017-10-12] MEDS: LATANOPROST EYE DROP 0.005% 2.5 ML BOTTLE EACHEYE SCH (21:24)
[2017-10-13] VITALS: BP 150/76
[2017-10-13 04:00] VITALS: BP_SYST 130; BP_SYST 131; BP_DIAS 73; BP_DIAS 74
[2017-10-13] MEDS: BLOOD SUGAR DIAGNOSTIC 1 EACH STRIP IN SCH ×3 (05:02→16:32)
[2017-10-13] MEDS: INSULIN REGULAR, HUMAN 100 UNIT/ML 3 ML VIAL SQ PRN ×2 (05:10→12:29)
[2017-10-13 07:09] LABS: CALCIUM, SERUM 9.6 mg/dL (8.5-10.1); CREATININE 0.9 mg/dL (0.6-1.3); POTASSIUM 4.7 mmol/L (3.5-5.1)
--- NOTE | 2017-10-13 07:31 | NUR ---
RN/TELE NURSE: PT. IN BED SLEEPING W/ RESPIRATIONS EVEN AND UNLABORED. DAUGHTER VISITED PT. NO NEW CHANGES NOTED. REPORT GIVEN TO NEXT SHIFT NURSE FOR ZANDER.
[2017-10-13 08:00] VITALS: BP 134/70
--- NOTE | 2017-10-13 08:00 | NUR ---
TELE1/RN AM SHIFT INITIAL NOTES RECEIVED PT AWAKE IN BED, NON-VERBAL, OPEN EYES, NO ACUTE RESPIRATORY DISTRESS OR GRIMACE NOTED. ON COOL AEROSOL @ 40% FIO2, SATURATING @ 97%, NOTED WITH RHONCHI LUNG SOUNDS, SUCTIONED FOR AIRWAY CLEARANCE. ON TELE MONITORING WITH SINUS RHYTHM WITH FIRST DEGREE AV BLOCK, HR 78. PICC LINE, FLUSHED, PATENT, WITH NO S/S OF INFECTION, SL. JACOBSEN CATHETER INTACT NOTED WITH CLOUDY YELLOW URINE OUTPUT. GTF ON GOING @ 65CC/HR, NO GASTRIC RESIDUAL, FLUSHED, PATENT. DVT SLEEP IN PLACED, PUMP TURN ON. PT IS COMFORTABLE, SCHEDULED AM MEDS TO BE GIVEN. CL WITHIN REACHED AND SAFETY MAINTAINED. ON GOING MONITORING.
[2017-10-13 08:08] LABS: BASOPHILS # (AUTO) 0.1 /CMM (0.0-0.2); BASOPHILS % (AUTO) 0.6 % (0.0-2.0); EOSINOPHILS % (AUTO) 10.4 % (0.0-6.0); HEMATOCRIT 34 % (39-51); HEMOGLOBIN 10.9 g/dL (13.5-17.5); LYMPHOCYTES # (AUTO) 2.2 /CMM (0.8-4.8); LYMPHOCYTES % (AUTO) 22.7 % (20.0-44.0); MEAN CORPUSCULAR HEMOGLOBIN 30 PG (26.0-33.0); MEAN CORPUSCULAR HGB CONC 32 g/dl (31.0-36.0); MEAN CORPUSCULAR VOLUME 94 fL (80-96); MONOCYTES % (AUTO) 10.7 % (2.0-12.0); NEUTROPHILS # (AUTO) 5.4 /CMM (1.8-8.9); NEUTROPHILS % (AUTO) 55.6 % (43.0-81.0); PLATELET COUNT (AUTO) 289 /CMM (150-450); RED BLOOD CELL COUNT(AUTO) 3.58 MIL/uL (4.5-6.0); WHITE BLOOD COUNT (AUTO) 9.8 K/uL (4.3-11.0)
[2017-10-13] MEDS: TIMOLOL MAL/DORZOLAM HCL OPHTH 10 ML BOTTLE EACHEYE SCH ×2 (09:09→16:23)
[2017-10-13] MEDS: PROSOURCE / PROSTAT (PYXIS) 30 ML UDC GT SCH ×3 (09:09→16:25)
[2017-10-13] MEDS: POLYVINYL ALCOHOL 15 ML BOTTLE OP SCH ×3 (09:09→16:24)
[2017-10-13] MEDS: BRIMONIDINE TARTRATE OPHT SOLN 5 ML BOTTLE EACHEYE SCH ×3 (09:09→16:23)
[2017-10-13] MEDS: LEVETIRACETAM SOL (5 ML) 100 MG/ML UDC GT SCH ×2 (09:10→21:37)
[2017-10-13] MEDS: CARVEDILOL 3.125 MG TABLET GT SCH ×2 (09:10→21:39)
[2017-10-13] MEDS: ASCORBIC ACID 500 MG TABLET GT SCH (09:10)
[2017-10-13] MEDS: MULTIVIT, IRON, MIN NO. 8, FA 1 TAB GT SCH (09:10)
[2017-10-13] MEDS: PHENYTOIN SUSP UDC 100 MG/4 ML UDC GT SCH ×2 (09:10→16:24)
[2017-10-13] MEDS: PANTOPRAZOLE 40 MG/PACK PACK GT SCH (09:10)
[2017-10-13] MEDS: ASPIRIN 81 MG TAB.CHEW GT SCH (09:10)
[2017-10-13] MEDS: LACTOBACILLUS RHAMNOSUS GG 1 EACH CAP.SPRINK GT SCH ×2 (09:10→16:24)
[2017-10-13] MEDS: HYDROGEL DRESSING 90 GM TUBE TP SCH (09:11)
[2017-10-13] MEDS: ENOXAPARIN SODIUM 40 MG/0.4 ML DISP.SYRIN SQ SCH (09:11)
[2017-10-13] MEDS: Z GUARD REMEDY 4 OZ OINT TP SCH ×2 (09:12→21:40)
[2017-10-13] MEDS: GLYTROL 1,000 ML BAG GT PRN (09:33)
[2017-10-13 12:00] VITALS: BP 103/57
--- NOTE | 2017-10-13 15:00 | NUR ---
TELE1/RN TRACH STITCHES OFF TRACH STITCHES REMOVED BY RT. PT TOLERATED PROCEDURE. NO ACUTE CHANGE OF CONDITION. ON GOING MONITORING.
[2017-10-13 16:00] VITALS: BP 131/74
--- NOTE | 2017-10-13 17:30 | NUR ---
TELE1/RN AFTERNOON ROUNDS PM CARE PROVIDED, SUCTIONED AND REPOSITIONED. NO CHANGE OF CONDITION. MONITORING CONTINUED.
[2017-10-13 20:00] VITALS: BP 150/85
[2017-10-13] MEDS: INSULIN DETEMIR 100 UNIT/ML CARTRIDGE SQ SCH (21:36)
[2017-10-13] MEDS: TERAZOSIN HCL 1 MG CAPSULE GT SCH (21:38)
[2017-10-13] MEDS: ATORVASTATIN 10 MG TABLET GT SCH (21:38)
[2017-10-13] MEDS: LATANOPROST EYE DROP 0.005% 2.5 ML BOTTLE EACHEYE SCH (21:40)
[2017-10-13] MEDS: TAMSULOSIN 0.4 MG CAP.SR.24H GT SCH (21:46)
[2017-10-14] VITALS: BP 123/70
[2017-10-14] MEDS: BLOOD SUGAR DIAGNOSTIC 1 EACH STRIP IN SCH ×4 (00:07→18:47)
[2017-10-14] MEDS: INSULIN REGULAR, HUMAN 100 UNIT/ML 3 ML VIAL SQ PRN ×4 (00:18→18:55)
[2017-10-14 04:00] VITALS: BP 134/76
--- NOTE | 2017-10-14 07:30 | NUR ---
BREASTFEEDING PEER COUNSELOR AM NOTES PT IN BED, ASLEEP, OPENS EYES, NON VERBAL, WITH T PIECE SHILEY#8, O2 COOL AEROSOL AT 10 LPM, 40% FIO2, NOT [place] DISTRESS, BREATHING EVEN AND UNLABORED, TELEMETRY READS SR HR 70 NO SIGNS OF DISCOMFORT, OR PAIN, RAÚL PICC LINE, FLUSHES WELL, SITE CLEAR, CDI DRESSING, JACOBSEN CATHETER INTACT NOTED WITH CLOUDY YELLOW URINE OUTPUT. GTF ONGOING @ 65CC/HR, NO GASTRIC RESIDUAL, FLUSHED, PATENT. DVT SLEEP IN PLACED, PUMP TURN ON. PT IS COMFORTABLE, CALL LIGHT WITHIN REACHED AND SAFETY MAINTAINED. WILL CONTINUE TO MONITOR.
[2017-10-14 08:00] VITALS: BP 120/60
[2017-10-14] MEDS: PHENYTOIN SUSP UDC 100 MG/4 ML UDC GT SCH ×2 (09:23→18:58)
[2017-10-14] MEDS: LEVETIRACETAM SOL (5 ML) 100 MG/ML UDC GT SCH ×2 (09:23→21:23)
[2017-10-14] MEDS: ASCORBIC ACID 500 MG TABLET GT SCH (09:23)
[2017-10-14] MEDS: ASPIRIN 81 MG TAB.CHEW GT SCH (09:24)
[2017-10-14] MEDS: CARVEDILOL 3.125 MG TABLET GT SCH ×2 (09:24→21:24)
[2017-10-14] MEDS: MULTIVIT, IRON, MIN NO. 8, FA 1 TAB GT SCH (09:24)
[2017-10-14] MEDS: PANTOPRAZOLE 40 MG/PACK PACK GT SCH (09:24)
[2017-10-14] MEDS: LACTOBACILLUS RHAMNOSUS GG 1 EACH CAP.SPRINK GT SCH ×2 (09:24→18:57)
[2017-10-14] MEDS: BRIMONIDINE TARTRATE OPHT SOLN 5 ML BOTTLE EACHEYE SCH ×3 (09:25→18:59)
[2017-10-14] MEDS: TIMOLOL MAL/DORZOLAM HCL OPHTH 10 ML BOTTLE EACHEYE SCH ×2 (09:25→18:59)
[2017-10-14] MEDS: POLYVINYL ALCOHOL 15 ML BOTTLE OP SCH ×3 (09:26→18:58)
[2017-10-14] MEDS: HYDROGEL DRESSING 90 GM TUBE TP SCH (09:26)
[2017-10-14] MEDS: PROSOURCE / PROSTAT (PYXIS) 30 ML UDC GT SCH ×3 (09:27→19:00)
[2017-10-14] MEDS: Z GUARD REMEDY 4 OZ OINT TP SCH ×2 (09:30→21:25)
--- NOTE | 2017-10-14 09:30 | NUR ---
RN NOTES ADMINISTERED DUE MEDS.
[2017-10-14] MEDS: ENOXAPARIN SODIUM 40 MG/0.4 ML DISP.SYRIN SQ SCH (09:32)
[2017-10-14 12:00] VITALS: BP 120/66
--- NOTE | 2017-10-14 12:31 | NUR ---
RN NOTES ACCUCHECK DONE. BS 167 MG/DL, ADMINISTERED 3 UNITS HUM R PER SS.
--- NOTE | 2017-10-14 15:30 | NUR ---
RN NOTES RECEIVED REPORT BY NOÉ COYLE FOR PT. IN ROOM 118 BED 1.
--- NOTE | 2017-10-14 15:30 | NUR ---
RN NOTES REPORT GIVEN TO AUDREY BROWN ZANDER.
[2017-10-14 16:00] VITALS: BP 133/71
--- NOTE | 2017-10-14 19:30 | NUR ---
RN/TELE NOTES: RECEIVED PT. IN BED W/ EYES CLOSED AND NON VERBAL. NO FACIAL GRIMACES OR MOANING NOTED. NOT IN ANY RESPIRATORY DISTRESS AT THIS TIME. ON COOL AEROSOL @ 40% FIO2 W/ O2 @ 10 LPM .SUCTIONED FOR AIRWAY CLEARANCE. ON TELE MONITORING WITH SINUS RHYTHM 72 WITH FIRST DEGREE AV BLOCK, PICC LINE PATENT AND INTACT W/ NO S/S OF INFECTION/INFILTRATION NOTED. ON TKO, JACOBSEN CATHETER INPLACE AND INTACT DRAINING CLEAR YELLOW URINE OUTPUT. GTF ON GOING @ 65CC/HR, NO GASTRIC RESIDUAL, FLUSHED, PATENT. NOTED WITH GENERALIZED, NON-PITTING EDEMA. CALL LIGHT W/REACH ALL NEEDS MEET.
--- NOTE | 2017-10-14 19:35 | NUR ---
RN CLOSING NOTES RECEIVED PT. IN BED, NON VERBAL, OPENS EYES SPONTANEOUSLY, AND WHEN CALLING PT.'S NAME, PRINCE. DAUGHTER IS AT BEDSIDE. BREATHING UNLABORED AND EVENLY WITH A SHILEY 8 TRACHEOSTOMY, SUCTIONS PERFORMED 4 TIMES,. SECRETIONS WERE PRODUCTIVE. PT. IS SATURATING ON OXYGEN AT 97%. NO S/S OF ACUTE DISTRESS. PT. HAS G TUBE INTACT AND PATENT. BED IS IN LOWEST, AND LOCKED POSITION. 2 SIDE RAILS UP, AND CALL LIGHT WITHIN REACH. ALL NEEDS MET, WILL ENDORSE REPORT TO NURSE.
[2017-10-14 20:00] VITALS: BP 126/72
[2017-10-14] MEDS: TAMSULOSIN 0.4 MG CAP.SR.24H GT SCH (21:24)
[2017-10-14] MEDS: TERAZOSIN HCL 1 MG CAPSULE GT SCH (21:24)
[2017-10-14] MEDS: LATANOPROST EYE DROP 0.005% 2.5 ML BOTTLE EACHEYE SCH (21:25)
[2017-10-14] MEDS: ATORVASTATIN 10 MG TABLET GT SCH (21:30)
[2017-10-14] MEDS: INSULIN DETEMIR 100 UNIT/ML CARTRIDGE SQ SCH (21:37)
[2017-10-15] VITALS (8 sets, daily range): BP systolic 124–148; BP diastolic 68–84
[2017-10-15] MEDS: BLOOD SUGAR DIAGNOSTIC 1 EACH STRIP IN SCH ×4 (00:23→17:10)
[2017-10-15] MEDS: INSULIN REGULAR, HUMAN 100 UNIT/ML 3 ML VIAL SQ PRN ×3 (00:25→12:46)
--- NOTE | 2017-10-15 03:50 | NUR ---
RN/TELE NOTES: REPORT GIVEN TO NOÉ MACARIO FOR CONTINUE TO CARE. PT. IN BED. NOT IN ANY DISTRESS.
--- NOTE | 2017-10-15 03:51 | NUR ---
REHAB THERAPIST NOTE ASSUMED CARE FOR THE PT. RECEIVED REPORT FROM DUC UMANZOR. PT ASLEEP, AROUSABLE. NON VERBAL. ON T PIECE COOL AEROSOL 40% 10 L O2. NO DISTRESS OR DISCOMFORT NOTED. NO S/S OF PAIN NOTED. ON TELE SR WITH 1ST DEGREE AV BLOCK, F/C INTACT AND PATENT DRAINING YELLOWISH COLOR URINE. GTF GLYTROL INFUSING WELL, 0 ML RESIDUAL NOTED. PICC LINE IN RAÚL INTACT AND PATENT. SIDE RAILS UP X 3 AND CALL LIGHT WITHIN REACH. CONTINUE TO MONITOR HIM.
--- NOTE | 2017-10-15 06:53 | NUR ---
ADVERTISER NOTE PT IN BED ASLEEP. NO DISTRESS OR DISCOMFORT NOTED. REPOSITION HIM Q2H, ALL NEEDS ATTENDED. GTF INFUSING WELL, 0 ML RESIDUAL NOTED. KEPT HIM DRY AND CLEAN. ALL NEEDS ATTENDED. WILL ENDORSE TO DAY SHIFT NURSE FOR CONTINUE TO CARE.
[2017-10-15 07:32] LABS: BASOPHILS # (AUTO) 0.1 /CMM (0.0-0.2); BASOPHILS % (AUTO) 0.5 % (0.0-2.0); EOSINOPHILS # (AUTO) 0.9 /CMM (0.0-0.7); EOSINOPHILS % (AUTO) 9.2 % (0.0-6.0); HEMATOCRIT 33 % (39-51); HEMOGLOBIN 10.9 g/dL (13.5-17.5); LYMPHOCYTES # (AUTO) 1.9 /CMM (0.8-4.8); LYMPHOCYTES % (AUTO) 20.1 % (20.0-44.0); MEAN CORPUSCULAR HEMOGLOBIN 32 PG (26.0-33.0); MEAN CORPUSCULAR HGB CONC 34 g/dl (31.0-36.0); MEAN CORPUSCULAR VOLUME 94 fL (80-96); MONOCYTES # (AUTO) 1.3 /CMM (0.1-1.30); MONOCYTES % (AUTO) 14.1 % (2.0-12.0); NEUTROPHILS # (AUTO) 5.2 /CMM (1.8-8.9); NEUTROPHILS % (AUTO) 56.1 % (43.0-81.0); PLATELET COUNT (AUTO) 506 /CMM (150-450); RDW COEFFICIENT OF VARIATION 14.7 (11.5-15.0); RED BLOOD CELL COUNT(AUTO) 3.47 MIL/uL (4.5-6.0); WHITE BLOOD COUNT (AUTO) 9.3 K/uL (4.3-11.0)
--- NOTE | 2017-10-15 07:36 | NUR ---
DUMP GRADER NOTES RECEIVED PT ON BED SLEEPING. A/O X2. ON KIMBERLY #8 TPIECE TRACH 10LPM NC 40% TOLERATING WELL. NO SIGNS OF DISTRESS. ON TELE MONITOR SR PRIMARY AB BLOCK. HEAD OF BED ELEVATED. CALL LIGHT WITHIN REACH. SIDE RAILS UP. WILL CONTINUE TO MONITOR CLOSELY.
[2017-10-15 07:57] LABS: CALCIUM, SERUM 9.6 mg/dL (8.5-10.1); CREATININE 0.9 mg/dL (0.6-1.3); MAGNESIUM 1.9 mg/dL (1.8-2.4); PHOSPHORUS 3.1 mg/dL (2.5-4.9); POTASSIUM 4.3 mmol/L (3.5-5.1)
[2017-10-15] MEDS: ENOXAPARIN SODIUM 40 MG/0.4 ML DISP.SYRIN SQ SCH (08:12)
[2017-10-15] MEDS: PANTOPRAZOLE 40 MG/PACK PACK GT SCH (08:12)
[2017-10-15] MEDS: PHENYTOIN SUSP UDC 100 MG/4 ML UDC GT SCH ×2 (08:12→17:09)
[2017-10-15] MEDS: LEVETIRACETAM SOL (5 ML) 100 MG/ML UDC GT SCH (08:13)
[2017-10-15] MEDS: ASCORBIC ACID 500 MG TABLET GT SCH (08:13)
[2017-10-15] MEDS: MULTIVIT, IRON, MIN NO. 8, FA 1 TAB GT SCH (08:13)
[2017-10-15] MEDS: LACTOBACILLUS RHAMNOSUS GG 1 EACH CAP.SPRINK GT SCH ×2 (08:13→17:09)
[2017-10-15] MEDS: CARVEDILOL 3.125 MG TABLET GT SCH (08:13)
[2017-10-15] MEDS: ASPIRIN 81 MG TAB.CHEW GT SCH (08:14)
[2017-10-15] MEDS: POLYVINYL ALCOHOL 15 ML BOTTLE OP SCH ×3 (08:14→17:09)
[2017-10-15] MEDS: BRIMONIDINE TARTRATE OPHT SOLN 5 ML BOTTLE EACHEYE SCH ×3 (08:14→17:09)
[2017-10-15] MEDS: TIMOLOL MAL/DORZOLAM HCL OPHTH 10 ML BOTTLE EACHEYE SCH ×2 (08:15→17:09)
[2017-10-15] MEDS: HYDROGEL DRESSING 90 GM TUBE TP SCH (08:15)
[2017-10-15] MEDS: PROSOURCE / PROSTAT (PYXIS) 30 ML UDC GT SCH ×3 (08:15→17:09)
[2017-10-15] MEDS: Z GUARD REMEDY 4 OZ OINT TP SCH (08:16)
[2017-10-15 08:57] LABS: MONOCYTES % (MANUAL) 4 % (0-11.0)
[2017-10-15 08:58] LABS: EOSINOPHILS % (MANUAL) 10 % (0-4); LYMPHOCYTES % (MANUAL) 18 % (16-48); NEUTROPHILS % (MANUAL) 68 (42-76)
--- NOTE | 2017-10-15 16:55 | NUR ---
CHEESE PANCAKE ROLLER NOTES CALLED PATIENT DAUGHTER HILDA AND NOTIFIED OF DISCHARGE TO [facility]. GIVEN INFORMATION AND PHONE NUMBERS
--- NOTE | 2017-10-15 17:55 | NUR ---
MS RN NOTE PT. BS IS 144MG/DL , INSULIN NOT GIVEN PT TRANSFER TO [facility] AT 1700
--- NOTE | 2017-10-15 19:06 | NUR ---
ANIMAL BOUNTY HUNTER NOTES PT LEFT HOSPITAL VIA GURNEY IN STABLE CONDITION. PICC LINE IN PLACE. JACOBSEN CATH IN PLACED. JACOBSEN CARE COMPLETED, DRAINING WELL. PROVIDED BED BATH. ALL MEDS GIVEN. ENDORSED PT TO EMT. ENDORSED REPORT TO CLAUDIA UMANZOR AT [facility].
== END 2017-10-15 19:00 | disposition short-term general hospital (02) | DRG 4 ==
LOC: ER 08:26 → ICU 10:08 → TELE-TD 10-07 18:15 → TELE1 10-09 11:29
PROVIDERS: ADMIT Internal Medicine Nephrology; ATTEND Internal Medicine Nephrology
PROC: 5A1955Z Respiratory Ventilation, Greater than 96 Consecutive Hours (ICD-10-PCS; principal; 2017-09-27)
PROC: 02HV33Z Insertion of Infusion Device into Superior Vena Cava, Percutaneous Approach (ICD-10-PCS; 2017-09-29)
PROC: B548ZZA Ultrasonography of Superior Vena Cava, Guidance (ICD-10-PCS; 2017-09-29)
PROC: 0B110F4 Bypass Trachea to Cutaneous with Tracheostomy Device, Open Approach (ICD-10-PCS; 2017-10-06)
DX: A41.9 Sepsis, unspecified organism (principal); R65.21 Severe sepsis with septic shock; G93.40 Encephalopathy, unspecified; L89.154 Pressure ulcer of sacral region, stage 4; J18.9 Pneumonia, unspecified organism; I11.0 Hypertensive heart disease with heart failure; R53.2 Functional quadriplegia; E87.2 Acidosis; I50.9 Heart failure, unspecified; J96.01 Acute respiratory failure with hypoxia; N39.0 Urinary tract infection, site not specified; Z99.11 Dependence on respirator [ventilator] status; F03.90 Unspecified dementia, unspecified severity, without behavioral disturbance, psychotic disturbance, mood disturbance, and anxiety; K21.9 Gastro-esophageal reflux disease without esophagitis; R13.10 Dysphagia, unspecified; G40.909 Epilepsy, unspecified, not intractable, without status epilepticus; N40.0 Benign prostatic hyperplasia without lower urinary tract symptoms; Z79.899 Other long term (current) drug therapy; Z79.82 Long term (current) use of aspirin; Z86.011 Personal history of benign neoplasm of the brain; Z93.1 Gastrostomy status; Z86.73 Personal history of transient ischemic attack (TIA), and cerebral infarction without residual deficits; Z88.1 Allergy status to other antibiotic agents; Z79.4 Long term (current) use of insulin; Z79.84 Long term (current) use of oral hypoglycemic drugs; H40.9 Unspecified glaucoma; E78.5 Hyperlipidemia, unspecified; B96.20 Unspecified Escherichia coli [E. coli] as the cause of diseases classified elsewhere; B96.89 Other specified bacterial agents as the cause of diseases classified elsewhere; I70.0 Atherosclerosis of aorta
CPT/HCPCS: 31720; 36415; 36569; 36600; 71010-TC; 80048-TC; 80076-TC; 80202-TC; 81000-TC; 82803-TC; 82962-TC; 83605-TC; 83735-TC; 84100-TC; 84484-TC; 85025-TC; 85610-TC; 85730-TC; 86850-TC; 87040-TC; 87070-TC; 87081-TC; 87086-TC; 87186-TC; 87400; 94002-TC; 94003-TC; 94640-TC; 94664-TC; 94762-TC; A4216; A4606; A6248; A6253; A6402; A6403; A7526; C1751; J0330; J0692; J1170; J1650; J1815; J1953; J2250; J2405; J2543; J2704; J3370; J3475; J3490; J7030; J7040; J7042; J7050; J7060; Z7610